=== PATIENT | male | born 1965 | race Caucasian/White ===

== ENCOUNTER 2017-11-11 13:00 | Inpatient (IN) ==
[2017-11-11] MEDS ORDERED: Sod Chloride 0.9% Inj 1,000 ML IV.SIG ONE (13:26)
--- NOTE | 2017-11-11 13:46 | ED ---
HPI General Chief Complaint: Chest Pain Stated Complaint: Abnormal EKG Time Seen by Provider: 11/11/17 13:15 Source: patient, family, RN notes reviewed and old records reviewed Mode of arrival: ambulatory Limitations: no limitations History of Present Illness HPI narrative: 52-year-old male presents to the emergency department via private vehicle for evaluation of syncope, chest pain. Patient states that he completed a 20 mile bike ride and walked into the 1. He states that he then had 3 syncopal episodes. He was from the standing position upon the first syncopal episode. EMS was called EKG was performed which was abnormal. EMS wanted to bring him to the ED at that time, but he declined having his significant other bring him instead. Patient currently rates midsternal chest pain 2/, states it "feels like I have been coughing". He denies any radiation of the pain. He states for the past month or so when he goes outside he will have some chest pain. Before that, he states he would have chest pain when he smoked marijuana. He does currently smoke marijuana. He did use marijuana orally before going on his bike ride. He denies any other illicit drug use. He is a current tobacco smoker. Patient reports history of GERD and is on Protonix. He also has exercise-induced asthma and is on albuterol. He states he has uses albuterol more often lately. Patient denies any headache. No visual changes. No other complaints at this time. Moderate severity. MD complaint: chest pain Complete Quality Measures for STEMI Alert Patients STEMI Alert: No Duration: intermittent Onset: during rest and during exertion Pain location: substernal Severity: moderate Severity scale (1-10): 2 Quality: tightness and aching Pain radiation: none Relieving factors: nothing Exacerbating factors: nothing Context: other (syncope x3, during and after 20 mile bike ride) Treatments prior to arrival chest pain: none Related Data Allergies Allergy/AdvReac Type Severity Reaction Status Date / Time No Known Allergies AdvReac Unknown Uncoded 04/07/17 11:26 Review of Systems ROS: all other systems reviewed are negative [facility] Social History Social History Substance History: Active Abuse Second Hand Smoke Exposure: No Smoking Status: Current every day smoker How Often Do You Have a Drink Containing Alcohol: 2 to 3 times a week Recent Travel in [facility] within the Last 8 Weeks: No Recent Out of Country Travel within the Last 8 Weeks: No Substance Abuse Detail Marijuana: Route Used Substance Abuse: By Mouth and Inhalation Exam Narrative Exam Narrative: GENERAL: Well-nourished, well-developed male patient, afebrile SKIN: Focused skin assessment warm/dry. No lacerations or abrasions. HEAD: Normocephalic. Atraumatic. EYES: No scleral icterus. No injection or drainage. NECK: Supple, trachea midline. No JVD or lymphadenopathy. CARDIOVASCULAR: Regular rate and rhythm without murmurs, gallops, or rubs. Bilateral radial and pedal pulses 2+ RESPIRATORY: Breath sounds equal bilaterally. No accessory muscle use. Lung sounds are clear to auscultation GASTROINTESTINAL: Abdomen soft, non-tender, nondistended. MUSCULOSKELETAL: No cyanosis, or edema. Bilateral upper and lower extremity strength 5/5. Extremities are neurovascularly intact BACK: Nontender without obvious deformity. No CVA tenderness. Course Initial Documented Vital Signs Temperature 97.6 F 11/11/17 13:05 Pulse Rate 63 11/11/17 13:05 Respiratory Rate 16 11/11/17 13:05 Blood Pressure 138/64 11/11/17 13:05 Pulse Oximetry 99 11/11/17 13:05 Last Documented Vital Signs Temperature 97.6 F 11/11/17 13:05 Pulse Rate 59 L 11/11/17 17:40 Respiratory Rate 18 11/11/17 17:40 Blood Pressure 119/59 L 11/11/17 17:40 Pulse Oximetry 100 11/11/17 15:28 Medical Decision Making BRISEIDA Attestation BRISEIDA supervised visit: Yes Attestation: I, Dr. Rudolph, have reviewed the advance practice practitioner's documentation and am in agreement, met with the patient face to face, made the diagnosis, and the medical decision making was done by me. *My assessment and Findings: Patient seen and evaluated with PA, coming in with chest discomfort and syncope, EKG is showing T-wave inversion in the inferior leads. Cardiac enzymes are elevated, concerning for a non-ST elevation MA. Aspirin and heparin was initiated in the ER. CAT scan of the brain did not show any signs of acute processes. IV fluids were initiated in the ER. Case was discussed with Dr. Damon who states he will see the patient. At this point , patient is admitted for medical service for further evaluation. [facility] Narrative Medical decision making narrative: 52-year-old male presents to the emergency department for evaluation of syncope 3, chest pain. EKG shows inverted T waves in lead II, 3, aVF. Inversion is deep in leads III and aVF. EKG by EMS shows ST depression in leads II, 3, aVF, but this has resolved. CBC, CMP, magnesium, CK, troponin, PTT, PT/INR, UA, urine drug screen, d-dimer are ordered and pending. Chest x-ray, CT the brain are ordered and pending. Aspirin will be held until CT the brain shows no hemorrhage. Patient is given normal saline 1 L IV bolus, Zofran 4 mg IV CBC shows slight leukocytosis of 11.1. CMP shows creatinine of 1.33. CK is 11.9. Troponin is 1.25. Magnesium is 2.4. PTT is 22.6. PT is 10.5. INR is 1.0. D-dimer is 0.26. UA and UDS are pending. Chest x-ray is negative. CT of the brain is negative. Patient is given ASA 325 mg PO and Heparin gtt is initiated. Dr. Mercer accepted the admission. Dr. Damon was consulted and is aware of the patient and NSTEMI. Medical Screen Exam Complete: Yes Emergency Medical Condition: Yes Differential Diagnosis Differential Diagnosis: ACS versus PE versus pneumonia versus pneumothorax versus electrolyte abnormality versus dehydration versus intracranial hemorrhage Medical Records Medical records reviewed: Yes I reviewed the patient's medical records. EKG was reviewed from September 27, 2014. He had slight inverted T waves in lead III , but not leads II and aVF. Lab Data Result diagrams: 11/11/17 10:45 11/11/17 13:55 Lab Results 11/11/17 11/11/17 11/11/17 Range/Units 10:45 13:55 13:55 WBC 11.1 H (4.0-11.0) th/mm3 RBC 4.91 (4.50-5.90) mil/mm3 Hgb 15.2 (13.0-17.0) gm/dL Hct 44.8 (39.0-51.0) % MCV 91.2 (80.0-100.0) fL MCH 31.0 (27.0-34.0) pg MCHC 34.0 (32.0-36.0) % RDW 13.1 (11.6-17.2) % Plt Count 211 (150-450) th/mm3 MPV 8.1 (7.0-11.0) fL Neut % (Auto) 76.7 H (16.0-70.0) % Lymph % (Auto) 14.8 (9.0-44.0) % [place] % (Auto) 6.6 (0.0-8.0) % Eos % (Auto) 1.6 (0.0-4.0) % Baso % (Auto) 0.3 (0.0-2.0) % Neut # (Auto) 8.5 H (1.8-7.7) th/mm3 Lymph # (Auto) 1.6 (1.0-4.8) th/mm3 [place] # (Auto) 0.7 (0.0-0.9) th/mm3 Eos # (Auto) 0.2 (0.0-0.4) th/mm3 Baso # (Auto) 0.0 (0.0-0.2) th/mm3 WBC Differential . Differential Comment Auto diff final PT 10.5 (9.8-11.6) sec INR 1.0 Ratio APTT 22.6 L (24.3-30.1) sec D-Dimer Quant (PE/DVT) (0.00-0.50) mg/L FEU Sodium 142 (136-145) meq/L Potassium 4.4 (3.5-5.1) meq/L Chloride 107 (98-107) meq/L Carbon Dioxide 25.9 (21.0-32.0) meq/L Anion Gap 9 (5-15) meq/L BUN 12 (7-18) mg/dL Creatinine 1.33 H (0.60-1.30) mg/dL Estimated GFR 57 L (>89) mL/min Random Glucose 82 (74-106) mg/dL Calcium 9.1 (8.5-10.1) mg/dL Magnesium 2.4 (1.5-2.5) mg/dL Total Bilirubin 0.4 (0.2-1.0) mg/dL AST 33 (15-37) U/L ALT 28 (12-78) U/L Alkaline Phosphatase 71 (45-117) U/L Total Creatine Kinase 181 (39-308) U/L CK-MB (CK-2) 11.9 H (0.5-3.6) ng/mL Troponin I 1.25 H* (0.02-0.05) ng/mL Total Protein 7.9 (6.4-8.2) g/dL Albumin 4.2 (3.4-5.0) g/dL Urine Color (Yellw/Straw) Urine Clarity (Clear) Urine pH (5.0-8.5) Ur Specific [place] (1.002-1.035) Urine Protein (Neg-Trace) mg/dL Urine Glucose (UA) (Negative) mg/dL Urine Ketones (Negative) mg/dL Urine Occult Blood (Negative) Urine Nitrate (Negative) Urine Bilirubin (Negative) Urine Urobilinogen (Less than 2) mg/dL Ur Leukocyte Esterase (Negative) Urine WBC (0-5) /hpf Hyaline Casts (0-3) /lpf Urine Mucus (Occasional) /lpf Micro UA Comment Ur Microscopic Review Urine Culture Comments 11/11/17 11/11/17 Range/Units 13:55 17:17 WBC (4.0-11.0) th/mm3 RBC (4.50-5.90) mil/mm3 Hgb (13.0-17.0) gm/dL Hct (39.0-51.0) % MCV (80.0-100.0) fL MCH (27.0-34.0) pg MCHC (32.0-36.0) % RDW (11.6-17.2) % Plt Count (150-450) th/mm3 MPV (7.0-11.0) fL Neut % (Auto) (16.0-70.0) % Lymph % (Auto) (9.0-44.0) % [place] % (Auto) (0.0-8.0) % Eos % (Auto) (0.0-4.0) % Baso % (Auto) (0.0-2.0) % Neut # (Auto) (1.8-7.7) th/mm3 Lymph # (Auto) (1.0-4.8) th/mm3 [place] # (Auto) (0.0-0.9) th/mm3 Eos # (Auto) (0.0-0.4) th/mm3 Baso # (Auto) (0.0-0.2) th/mm3 WBC Differential Differential Comment PT (9.8-11.6) sec INR Ratio APTT (24.3-30.1) sec D-Dimer Quant (PE/DVT) 0.26 (0.00-0.50) mg/L FEU Sodium (136-145) meq/L Potassium (3.5-5.1) meq/L Chloride (98-107) meq/L Carbon Dioxide (21.0-32.0) meq/L Anion Gap (5-15) meq/L BUN (7-18) mg/dL Creatinine (0.60-1.30) mg/dL Estimated GFR (>89) mL/min Random Glucose (74-106) mg/dL Calcium (8.5-10.1) mg/dL Magnesium (1.5-2.5) mg/dL Total Bilirubin (0.2-1.0) mg/dL AST (15-37) U/L ALT (12-78) U/L Alkaline Phosphatase (45-117) U/L Total Creatine Kinase (39-308) U/L CK-MB (CK-2) (0.5-3.6) ng/mL Troponin I (0.02-0.05) ng/mL Total Protein (6.4-8.2) g/dL Albumin (3.4-5.0) g/dL Urine Color Yellow (Yellw/Straw) Urine Clarity Clear (Clear) Urine pH 5.0 (5.0-8.5) Ur Specific [place] 1.011 (1.002-1.035) Urine Protein Negative (Neg-Trace) mg/dL Urine Glucose (UA) Negative (Negative) mg/dL Urine Ketones Negative (Negative) mg/dL Urine Occult Blood Negative (Negative) Urine Nitrate Negative (Negative) Urine Bilirubin Negative (Negative) Urine Urobilinogen Less than 2 (Less than 2) mg/dL Ur Leukocyte Esterase Negative (Negative) Urine WBC Less than 1 (0-5) /hpf Hyaline Casts 11 (0-3) /lpf Urine Mucus Few H (Occasional) /lpf Micro UA Comment Culture not ind Ur Microscopic Review Not Reportable Urine Culture Comments Culture not ind Imaging Data Radiologist's impression: Head CT 11/11/17 13:26 CONCLUSION: Negative CT Head non contrast. . Chest X-Ray 11/11/17 15:10 CONCLUSION: Negative examination. Discharge Plan Discharge Disposition Patient Disposition: 30 Still Patient Discharge Details Diagnosis: NSTEMI (non-ST elevated myocardial infarction) Physicians Team ED Provider: Delfina Rudolph ED Midlevel Provider: Ramona Fermin Primary Care Provider: Sin Marie Attending Provider: Aj Mercer Other Providers: Danny Damon ED Status: Admitted Patient
[2017-11-11 14:21] LABS: Baso % (Auto) 0.3 % (0.0-2.0); Eos # (Auto) 0.2 th/mm3 (0.0-0.4); Eos % (Auto) 1.6 % (0.0-4.0); Hematocrit 44.8 % (39.0-51.0); Hemoglobin 15.2 gm/dL (13.0-17.0); Lymph # (Auto) 1.6 th/mm3 (1.0-4.8); Lymph % (Auto) 14.8 % (9.0-44.0); Mean Corpuscular Volume 91.2 fL (80.0-100.0); Mean Platelet Volume 8.1 fL (7.0-11.0); Mono # (Auto) 0.7 th/mm3 (0.0-0.9); Mono % (Auto) 6.6 % (0.0-8.0); Neut # (Auto) 8.5 th/mm3 (1.8-7.7); Neut % (Auto) 76.7 % (16.0-70.0); Platelet Count 211 th/mm3 (150-450); Red Blood Count 4.91 mil/mm3 (4.50-5.90); Red Cell Distribution Width 13.1 % (11.6-17.2); White Blood Count 11.1 th/mm3 (4.0-11.0)
[2017-11-11 14:33] LABS: Activated Partial Thrombo Time 22.6 sec (24.3-30.1); Alanine Aminotransferase 28 U/L (12-78); Albumin 4.2 g/dL (3.4-5.0); Anion Gap 9 meq/L (5-15); Aspartate Aminotransferase 33 U/L (15-37); Blood Urea Nitrogen 12 mg/dL (7-18); Calcium 9.1 mg/dL (8.5-10.1); Carbon Dioxide 25.9 meq/L (21.0-32.0); Chloride 107 meq/L (98-107); Glomerular Filtration Rate 57 mL/min (>89); Glucose,Random 82 mg/dL (74-106); Magnesium 2.4 mg/dL (1.5-2.5); Potassium 4.4 meq/L (3.5-5.1); Prothrombin Time 10.5 sec (9.8-11.6); Sodium 142 meq/L (136-145)
[2017-11-11 14:37] LABS: Alkaline Phosphatase 71 U/L (45-117); Creatine Kinase 181 U/L (39-308); Total Protein 7.9 g/dL (6.4-8.2)
[2017-11-11 14:52] LABS: Troponin I 1.25 ng/mL (0.02-0.05)
[2017-11-11 15:03] LABS: Creatine Kinase MB 11.9 ng/mL (0.5-3.6)
[2017-11-11] MEDS ORDERED: Heparin Drip 25,000 UNIT/250 ML BAG IV.CONT PRN (15:08)
[2017-11-11] MEDS ORDERED: Heparin 10,000 UNITS/10 ML Vial (for IV use) IV.PUSH STA (15:08)
[2017-11-11] MEDS ORDERED: Aspirin 325 MG Tablet PO ONE (15:08)
--- NOTE | 2017-11-11 15:08 | CT ---
EXAM DATE: 11/11/2017 2:54 PM EDT AGE/SEX: 52 years / Male INDICATIONS: Syncopal episode. CLINICAL DATA: This is the patient's initial encounter. Patient reports that signs and symptoms have been present for 1 day and indicates a pain score of 0/10. MEDICAL/SURGICAL HISTORY: None. None. RADIATION DOSE: 56.35 CTDI (mGy) COMPARISON: [facility], CT BRAIN W/O CONTRAST, 07/25/2012. . TECHNIQUE: CT of the head without contrast. Using automated exposure control and adjustment of the mA and/or kV according to patient size, radiation dose was kept as low as reasonably achievable to ob tain optimal diagnostic quality images. DICOM format image data is available electronically for revi ew and comparison. FINDINGS: Cerebrum: The ventricles are normal for age. No evidence of midline shift, mass lesion, hemorrhage or acute infarction. No extraaxial fluid collections are seen. Posterior Fossa: The cerebellum and brainstem are intact. The 4th ventricle is midline. The cerebe llopontine angle is unremarkable. Extracranial: The visualized portion of the orbits is intact. Skull: The calvaria is intact. No evidence of skull fracture. CONCLUSION: Negative CT Head non contrast. . Electronically signed by: Samuel Mason MD 11/11/2017 3:07 PM EDT
--- NOTE | 2017-11-11 15:43 | XR ---
EXAM DATE: 11/11/2017 3:39 PM EDT AGE/SEX: 52 years / Male INDICATIONS: Chest pain. Shortness of breath. CLINICAL DATA: This is the patient's initial encounter. Patient reports that signs and symptoms have been present for 1 day and indicates a pain score of 4/10. MEDICAL/SURGICAL HISTORY: None. None. COMPARISON: [facility], CHEST SINGLE AP, 07/25/2012. . FINDINGS: A single AP view of the chest demonstrates the lungs to be symmetrically aerated without evidence of mass, infiltrate or effusion. The cardiomediastinal contours are unremarkable. Osseous structures a re intact. CONCLUSION: Negative examination. Electronically signed by: Samuel Mason MD 11/11/2017 3:42 PM EDT
[2017-11-11] MEDS ORDERED: Morphine Inj 4 MG/ML Vial IV.PUSH PRN (16:30)
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
[2017-11-11] MEDS ORDERED: Tirofiban Inj 12,500 MCG/250 ML PLAST..BAG IV.CONT SCH (18:00)
[2017-11-11 18:16] LABS: Bilirubin,Urine Negative (Negative); Clarity,Urine Clear (Clear); Color,Urine Yellow (Yellw/Straw); Glucose,Urine (UA) Negative (Negative); Hyaline Casts,Urine 11 /lpf (0-3); Leukocyte Esterase,Urine Negative (Negative); Mucus,Urine Few /lpf (Occasional); Nitrite,Urine Negative (Negative); Specific Gravity,Urine 1.011 (1.002-1.035)
[2017-11-11 18:33] LABS: Amphetamine Screen,Urine Neg (Neg); Barbiturate Screen,Urine Neg (Neg); Cannabinoid Screen,Urine Pos (Neg); Cocaine Screen,Urine Neg (Neg)
[2017-11-11 18:34] LABS: Opiate Screen,Urine Neg (Neg)
[2017-11-11 19:38] LABS: Troponin I 4.16 ng/mL (0.02-0.05)
[2017-11-11] MEDS ORDERED: Morphine Sulfate Inj 8 MG/ML Vial IV.PUSH ONE (20:00)
--- NOTE | 2017-11-11 20:15 | MB ---
cc: Danny Damon MD DATE: 11/11/2017 REASON FOR CONSULTATION: [id number] myocardial infarction. HISTORY OF PRESENT ILLNESS: The patient is a 52-year-old white male with a history of asthma, gastroesophageal reflux disease, who was brought to the hospital complaining of chest discomfort as well as 3 syncopal episodes. The patient, who exercises regularly, had just finished a bike ride when he felt generalized malaise, chest discomfort, increased shortness of breath. He he went to a [employer] to try to get a drink. While leaning on the bait cooler, he began to feel severely lightheaded. He attempted to jump onto the cooler to sit down, but apparently lost consciousness for a few seconds, causing him to fall to the ground. When he tried to get up, he had another syncopal episode, probably lasting another couple of seconds. He was able to make it to the front of the store where he had his third syncopal episode, again lasting no more than a few seconds. He continued to have the upper midline chest discomfort, which he experienced predominantly during his bike ride as well. At this time, he continues to have slight chest discomfort without associated shortness of breath, nausea or diaphoresis. The patient states in retrospect, he has noticed similar chest discomfort for years, often experiencing the chest discomfort 45-60 minutes into a bike ride but has been able to exercise through the chest discomfort, which eventually resolves. He denies any other episodes of syncope in the past. He also denies palpitations, pedal edema, paroxysmal nocturnal dyspnea or orthopnea. Chronically, he has intermittent wheezing, often when supine. He has noticed increased shortness of breath in the last 2 days necessitating increased usage of albuterol. PAST MEDICAL HISTORY: 1. Asthma. 2. Gastroesophageal reflux disease. PAST SURGICAL HISTORY: 1. Right index and long finger surgery for lacerations, 10/25/2002. 2. Pars plana vitrectomy, membrane peel, right eye. CARDIAC MEDICATIONS AT HOME: None. CARDIAC MEDICATIONS HERE IN THE HOSPITAL: 1. Heparin drip. 2. Aspirin 81 mg p.o. daily. ALLERGIES: NO KNOWN DRUG ALLERGIES. FAMILY HISTORY: There is no family history of cardiac disease. SOCIAL HISTORY: The patient quit smoking in 2011. At that time, he was smoking about a pack every other day. He denies alcohol abuse. The patient does admit to smoking "a lot" of marijuana. REVIEW OF SYSTEMS: As in history of present illness, otherwise negative or noncontributory. He also denies headache, melena, bright red blood per rectum, fevers, cough. The patient notes a long history of dyspepsia for which he has been treated in the past with pantoprazole. PHYSICAL EXAMINATION: VITAL SIGNS: His blood pressure 119/59 with a pulse of 59, respirations 18. GENERAL: He is a well-developed, well-nourished white male, in no acute distress. NECK: Jugular venous pressure is normal. Carotid pulses are 2+ bilaterally and without bruits. CHEST: Clear lungs lopez. CARDIAC: He has a regular rhythm and rate without S3, S4, or murmur. ABDOMEN: He has a soft, nontender abdomen. Bowel sounds are present. There is no definite hepatosplenomegaly. EXTREMITIES: Reveals no clubbing, cyanosis or edema. Peripheral pulses are normal throughout. DIAGNOSTIC DATA: EKG shows sinus rhythm, inferior T-wave inversion, consider ischemia. Chest x-ray shows no acute disease. LABORATORY DATA: Include BUN 12, creatinine 1.33. CK 181, CK-MB 11.9, troponin 1.25. AST 33, ALT 28. INR 1.0. Potassium 4.4. WBC 11.1, hemoglobin 15.2, platelets 211. IMPRESSION: Acute/subacute non-ST elevation myocardial infarction in this 52-year-old white male with a history of asthma, gastroesophageal reflux disease. I suspect his myocardial infarction began yesterday. He had fairly prolonged chest discomfort throughout most of the night last night. EKG does show inferior T-wave inversion. There is no evidence for ST elevation. So far, there has been no evidence for significant arrhythmias, although he may very well have had ventricular tachyarrhythmias causing his syncopal episodes at the [employer] earlier today. Alternatively, he may have been dehydrated. At this time, he does continue to have slight ongoing chest discomfort, although much improved compared to earlier today. RECOMMENDATIONS: 1. Continue heparin drip and aspirin. 2. Add Aggrastat and nitroglycerin drips. 3. If his slight residual discomfort is not resolved in the next hour or two recommend cardiac catheterization this evening; otherwise we will plan on cardiac catheterization Tuesday. 4. We will hold off on beta william and SEPIDEH inhibitor therapy for now given his mild renal insufficiency and relatively low blood pressures. Danny Damon MD GHBelinda/agata , 06:05 PM , 06:15 PM DARRON
[2017-11-11] MEDS: Sod Chloride 0.9% Inj 1,000 ML IV.CONT SCH (20:55)
[2017-11-11] MEDS: Nitroglycerin Drip Premix 50 MG/250 ML BOTTLE IV.CONT PRN (20:57)
[2017-11-11] MEDS: TIROFIBAN BOLUS IV.PUSH ONE (21:22)
[2017-11-11 23:31] LABS: Hematocrit 37.5 % (39.0-51.0); Hemoglobin 13.1 gm/dL (13.0-17.0); Mean Corpuscular HGB Conc 34.9 % (32.0-36.0); Mean Corpuscular Hemoglobin 31.5 pg (27.0-34.0); Mean Corpuscular Volume 90.3 fL (80.0-100.0); Mean Platelet Volume 7.5 fL (7.0-11.0); Platelet Count 191 th/mm3 (150-450); Red Blood Count 4.15 mil/mm3 (4.50-5.90); Red Cell Distribution Width 12.7 % (11.6-17.2); White Blood Count 8.7 th/mm3 (4.0-11.0)
[2017-11-11 23:53] LABS: Activated Partial Thrombo Time 28.5 sec (24.3-30.1); INR 1.1 Ratio; Prothrombin Time 10.7 sec (9.8-11.6)
[2017-11-12 02:02] LABS: Baso # (Auto) 0.1 th/mm3 (0.0-0.2); Baso % (Auto) 0.6 % (0.0-2.0); Eos # (Auto) 0.3 th/mm3 (0.0-0.4); Eos % (Auto) 3.4 % (0.0-4.0); Hematocrit 36.9 % (39.0-51.0); Hemoglobin 12.7 gm/dL (13.0-17.0); Lymph # (Auto) 3.6 th/mm3 (1.0-4.8); Mean Corpuscular HGB Conc 34.4 % (32.0-36.0); Mean Corpuscular Hemoglobin 31.4 pg (27.0-34.0); Mean Corpuscular Volume 91.3 fL (80.0-100.0); Mean Platelet Volume 7.9 fL (7.0-11.0); Mono # (Auto) 0.8 th/mm3 (0.0-0.9); Mono % (Auto) 9.2 % (0.0-8.0); Neut # (Auto) 3.8 th/mm3 (1.8-7.7); Neut % (Auto) 44.8 % (16.0-70.0); Platelet Count 187 th/mm3 (150-450); Red Blood Count 4.04 mil/mm3 (4.50-5.90); Red Cell Distribution Width 13.2 % (11.6-17.2); White Blood Count 8.6 th/mm3 (4.0-11.0)
[2017-11-12 02:22] LABS: Troponin I 3.98 ng/mL (0.02-0.05)
[2017-11-12 02:33] LABS: Activated Partial Thrombo Time 23.1 sec (24.3-30.1); INR 1.1 Ratio; Prothrombin Time 10.7 sec (9.8-11.6)
[2017-11-12] MEDS: Sod Chloride 0.9% Inj 1,000 ML IV.CONT SCH ×4 (03:10→23:31)
[2017-11-12 03:59] LABS: Baso # (Auto) 0.1 th/mm3 (0.0-0.2); Baso % (Auto) 0.8 % (0.0-2.0); Eos # (Auto) 0.3 th/mm3 (0.0-0.4); Hematocrit 36.3 % (39.0-51.0); Hemoglobin 12.6 gm/dL (13.0-17.0); Lymph # (Auto) 3.2 th/mm3 (1.0-4.8); Mean Corpuscular HGB Conc 34.7 % (32.0-36.0); Mean Corpuscular Hemoglobin 31.6 pg (27.0-34.0); Mean Corpuscular Volume 91.1 fL (80.0-100.0); Mono # (Auto) 0.6 th/mm3 (0.0-0.9); Mono % (Auto) 8.6 % (0.0-8.0); Neut # (Auto) 3.4 th/mm3 (1.8-7.7); Neut % (Auto) 44.6 % (16.0-70.0); Platelet Count 187 th/mm3 (150-450); Red Blood Count 3.98 mil/mm3 (4.50-5.90); Red Cell Distribution Width 12.9 % (11.6-17.2); White Blood Count 7.5 th/mm3 (4.0-11.0)
[2017-11-12 04:29] LABS: Activated Partial Thrombo Time 23.4 sec (24.3-30.1); Prothrombin Time 10.5 sec (9.8-11.6)
[2017-11-12] MEDS ORDERED: Heparin 10,000 UNITS/10 ML Vial (for IV use) IV.PUSH STA (06:09)
[2017-11-12] MEDS: Heparin Drip 25,000 UNIT/250 ML BAG IV.CONT PRN ×2 (06:29→22:18)
[2017-11-12 06:31] LABS: Baso # (Auto) 0.1 th/mm3 (0.0-0.2); Baso % (Auto) 0.8 % (0.0-2.0); Eos # (Auto) 0.3 th/mm3 (0.0-0.4); Eos % (Auto) 4.3 % (0.0-4.0); Hematocrit 35.9 % (39.0-51.0); Hemoglobin 12.6 gm/dL (13.0-17.0); Lymph % (Auto) 39.7 % (9.0-44.0); Mean Corpuscular Hemoglobin 31.4 pg (27.0-34.0); Mean Corpuscular Volume 89.6 fL (80.0-100.0); Mean Platelet Volume 8.3 fL (7.0-11.0); Mono # (Auto) 0.7 th/mm3 (0.0-0.9); Mono % (Auto) 8.5 % (0.0-8.0); Neut # (Auto) 3.6 th/mm3 (1.8-7.7); Neut % (Auto) 46.7 % (16.0-70.0); Platelet Count 177 th/mm3 (150-450); White Blood Count 7.7 th/mm3 (4.0-11.0)
[2017-11-12 06:59] LABS: Activated Partial Thrombo Time 24.6 sec (24.3-30.1); INR 1.1 Ratio; Prothrombin Time 10.9 sec (9.8-11.6)
[2017-11-12] MEDS: TIROFIBAN BOLUS IV.PUSH ONE (08:18)
--- NOTE | 2017-11-12 10:20 | US ---
EXAM DATE: 11/12/2017 10:13 AM EDT AGE/SEX: 52 years / Male INDICATIONS: Syncope. CLINICAL DATA: This is the patient's initial encounter. Patient reports that signs and symptoms have been present for 1 day and indicates a pain score of 0/10. MEDICAL/SURGICAL HISTORY: . Gastroesophageal reflux disease. Smoker. None. COMPARISON: No prior exams available for comparison. VELOCITY PARAMETERS: ICA/CCA Ratio: Right 0.9 , Left 0.8 ICA: Right 101 cm/sec, Left 114 cm/sec CCA: Right 107 cm/sec, Left 137 cm/sec ECA: Right 117 cm/sec, Left 108 cm/sec Vertebral: Right 40 cm/sec antegrade, Left 49 cm/sec antegrade FINDINGS: Right Carotid: No significant plaque is visualized.The waveforms are within normal limits. Left Carotid: No significant plaque is visualized. The waveforms are within normal limits. Other: None. CONCLUSION: No hemodynamically significant stenosis in either carotid artery. Electronically signed by: Nixon Mcmullen MD 11/12/2017 10:19 AM EDT
--- NOTE | 2017-11-12 11:38 | P.PN ---
Subjective Interval history: Follow-up non-ST elevation LA November 12, 2017-patient seen and examined, continued to complain of substernal chest pain. Poison control was called overnight secondary to possible Aggrastat toxicity, however platelet count remains stable Physical Exam Vital signs: Vital Signs 11/11/17 13:05 11/11/17 13:29 11/11/17 13:32 Temperature 97.6 F Pulse Rate 63 63 70 Respiratory Rate 16 18 18 Blood Pressure 138/64 112/58 L 117/58 L Pulse Oximetry 99 98 97 11/11/17 15:01 11/11/17 15:28 11/11/17 17:40 Temperature Pulse Rate 70 59 L Respiratory Rate 18 18 Blood Pressure 117/76 119/59 L Pulse Oximetry 98 100 11/11/17 19:00 11/11/17 19:15 11/11/17 20:00 Temperature 98.5 F 98.2 F Pulse Rate 55 L 51 L 56 L Respiratory Rate 18 16 Blood Pressure 112/54 L 128/67 Pulse Oximetry 98 100 11/11/17 21:00 11/11/17 22:00 11/11/17 23:00 Temperature Pulse Rate 54 L 58 L 80 Respiratory Rate Blood Pressure Pulse Oximetry 11/12/17 00:00 11/12/17 01:00 11/12/17 02:00 Temperature 98.4 F Pulse Rate 56 L 58 L 62 Respiratory Rate 18 Blood Pressure 118/65 Pulse Oximetry 99 11/12/17 03:00 11/12/17 04:00 11/12/17 05:00 Temperature 98.0 F Pulse Rate 51 L 52 L 56 L Respiratory Rate 16 Blood Pressure 120/59 L Pulse Oximetry 95 11/12/17 06:00 Temperature Pulse Rate 51 L Respiratory Rate Blood Pressure Pulse Oximetry Intake & Output 11/11/17 11/12/17 11/12/17 18:59 06:59 18:59 Intake Total 2910 / 2910 Output Total 1100 / 1100 Balance 1810 / 1810 Weight 95.254 kg 96.3 kg Intake: IV 2190 / 2190 Heparin/D5W 25,000 U/250 mL 25, 40 / 40 000 unit In 250 ml @ Per Protocol IV.CONT TITRATE PRN Rx #:[id number] NS Inj 1,000 ML @ 100 mls/hr IV 900 / 900 .CONT .Q10H BLAYNE Rx#:[id number] NS Inj 1,000 ML @ Wide Open IV. 1000 / 1000 SIG BOLUS ONE Rx#:[id number] Oral 720 / 720 Output: Urine 1100 / 1100 Narrative: GENERAL: NAD SKIN: Warm and dry. HEAD: Normocephalic. EYES: No scleral icterus. No injection or drainage. NECK: Supple, trachea midline. No JVD or lymphadenopathy. CARDIOVASCULAR: Regular rate and rhythm without murmurs, gallops, or rubs. RESPIRATORY: Breath sounds equal bilaterally. No accessory muscle use. GASTROINTESTINAL: Abdomen soft, non-tender, nondistended. MUSCULOSKELETAL: No cyanosis, or edema. BACK: Nontender without obvious deformity. No CVA tenderness. Results - Labs CBC & Chem 7: 11/12/17 06:00 11/11/17 13:55 Laboratory Results - last 24 hr 11/11/17 11/11/17 11/11/17 10:45 13:55 13:55 WBC 11.1 H RBC 4.91 Hgb 15.2 Hct 44.8 MCV 91.2 MCH 31.0 MCHC 34.0 RDW 13.1 Plt Count 211 MPV 8.1 Neut % (Auto) 76.7 H Lymph % (Auto) 14.8 [place] % (Auto) 6.6 Eos % (Auto) 1.6 Baso % (Auto) 0.3 Neut # (Auto) 8.5 H Lymph # (Auto) 1.6 [place] # (Auto) 0.7 Eos # (Auto) 0.2 Baso # (Auto) 0.0 WBC Differential . Differential Comment Auto diff final PT 10.5 INR 1.0 APTT 22.6 L D-Dimer Quant (PE/DVT) Sodium 142 Potassium 4.4 Chloride 107 Carbon Dioxide 25.9 Anion Gap 9 BUN 12 Creatinine 1.33 H Estimated GFR 57 L Random Glucose 82 Calcium 9.1 Magnesium 2.4 Total Bilirubin 0.4 AST 33 ALT 28 Alkaline Phosphatase 71 Total Creatine Kinase 181 CK-MB (CK-2) 11.9 H Troponin I 1.25 H* Total Protein 7.9 Albumin 4.2 Urine Color Urine Clarity Urine pH Ur Specific Catherine Urine Protein Urine Glucose (UA) Urine Ketones Urine Occult Blood Urine Nitrate Urine Bilirubin Urine Urobilinogen Ur Leukocyte Esterase Urine WBC Hyaline Casts Urine Mucus Micro UA Comment Ur Microscopic Review Urine Culture Comments Urine Opiates Screen Ur Barbiturates Screen Ur Amphetamines Screen U Benzodiazepines Scrn Urine Cocaine Screen U Cannabinoids Screen 11/11/17 11/11/17 11/11/17 13:55 17:17 17:17 WBC RBC Hgb Hct MCV MCH MCHC RDW Plt Count MPV Neut % (Auto) Lymph % (Auto) [place] % (Auto) Eos % (Auto) Baso % (Auto) Neut # (Auto) Lymph # (Auto) [place] # (Auto) Eos # (Auto) Baso # (Auto) WBC Differential Differential Comment PT INR APTT D-Dimer Quant (PE/DVT) 0.26 Sodium Potassium Chloride Carbon Dioxide Anion Gap BUN Creatinine Estimated GFR Random Glucose Calcium Magnesium Total Bilirubin AST ALT Alkaline Phosphatase Total Creatine Kinase CK-MB (CK-2) Troponin I Total Protein Albumin Urine Color Yellow Urine Clarity Clear Urine pH 5.0 Ur Specific Catherine 1.011 Urine Protein Negative Urine Glucose (UA) Negative Urine Ketones Negative Urine Occult Blood Negative Urine Nitrate Negative Urine Bilirubin Negative Urine Urobilinogen Less than 2 Ur Leukocyte Esterase Negative Urine WBC Less than 1 Hyaline Casts 11 Urine Mucus Few H Micro UA Comment Culture not ind Ur Microscopic Review Not Reportable Urine Culture Comments Culture not ind Urine Opiates Screen Neg Ur Barbiturates Screen Neg Ur Amphetamines Screen Neg U Benzodiazepines Scrn Neg Urine Cocaine Screen Neg U Cannabinoids Screen Pos H 11/11/17 11/11/17 11/11/17 18:55 21:21 23:15 WBC RBC Hgb Hct MCV MCH MCHC RDW Plt Count MPV Neut % (Auto) Lymph % (Auto) [place] % (Auto) Eos % (Auto) Baso % (Auto) Neut # (Auto) Lymph # (Auto) [place] # (Auto) Eos # (Auto) Baso # (Auto) WBC Differential Differential Comment PT 10.7 INR 1.1 APTT 31.9 H D 28.5 D-Dimer Quant (PE/DVT) Sodium Potassium Chloride Carbon Dioxide Anion Gap BUN Creatinine Estimated GFR Random Glucose Calcium Magnesium Total Bilirubin AST ALT Alkaline Phosphatase Total Creatine Kinase 226 CK-MB (CK-2) Troponin I 4.16 H* Total Protein Albumin Urine Color Urine Clarity Urine pH Ur Specific Catherine Urine Protein Urine Glucose (UA) Urine Ketones Urine Occult Blood Urine Nitrate Urine Bilirubin Urine Urobilinogen Ur Leukocyte Esterase Urine WBC Hyaline Casts Urine Mucus Micro UA Comment Ur Microscopic Review Urine Culture Comments Urine Opiates Screen Ur Barbiturates Screen Ur Amphetamines Screen U Benzodiazepines Scrn Urine Cocaine Screen U Cannabinoids Screen 11/11/17 11/12/17 11/12/17 23:15 01:35 01:35 WBC 8.7 8.6 RBC 4.15 L 4.04 L Hgb 13.1 D 12.7 L Hct 37.5 L 36.9 L MCV 90.3 91.3 MCH 31.5 31.4 MCHC 34.9 34.4 RDW 12.7 13.2 Plt Count 191 187 MPV 7.5 7.9 Neut % (Auto) 44.8 Lymph % (Auto) 42.0 [place] % (Auto) 9.2 H Eos % (Auto) 3.4 Baso % (Auto) 0.6 Neut # (Auto) 3.8 Lymph # (Auto) 3.6 [place] # (Auto) 0.8 Eos # (Auto) 0.3 Baso # (Auto) 0.1 WBC Differential . Differential Comment Auto diff final PT INR APTT D-Dimer Quant (PE/DVT) Sodium Potassium Chloride Carbon Dioxide Anion Gap BUN Creatinine Estimated GFR Random Glucose Calcium Magnesium Total Bilirubin AST ALT Alkaline Phosphatase Total Creatine Kinase 209 CK-MB (CK-2) Troponin I 3.98 H* Total Protein Albumin Urine Color Urine Clarity Urine pH Ur Specific Catherine Urine Protein Urine Glucose (UA) Urine Ketones Urine Occult Blood Urine Nitrate Urine Bilirubin Urine Urobilinogen Ur Leukocyte Esterase Urine WBC Hyaline Casts Urine Mucus Micro UA Comment Ur Microscopic Review Urine Culture Comments Urine Opiates Screen Ur Barbiturates Screen Ur Amphetamines Screen U Benzodiazepines Scrn Urine Cocaine Screen U Cannabinoids Screen 11/12/17 11/12/17 11/12/17 01:35 03:35 03:35 WBC 7.5 RBC 3.98 L Hgb 12.6 L Hct 36.3 L MCV 91.1 MCH 31.6 MCHC 34.7 RDW 12.9 Plt Count 187 MPV 8.0 Neut % (Auto) 44.6 Lymph % (Auto) 42.0 [place] % (Auto) 8.6 H Eos % (Auto) 4.0 Baso % (Auto) 0.8 Neut # (Auto) 3.4 Lymph # (Auto) 3.2 [place] # (Auto) 0.6 Eos # (Auto) 0.3 Baso # (Auto) 0.1 WBC Differential . Differential Comment Auto diff final PT 10.7 10.5 INR 1.1 1.0 APTT 23.1 L 23.4 L D-Dimer Quant (PE/DVT) Sodium Potassium Chloride Carbon Dioxide Anion Gap BUN Creatinine Estimated GFR Random Glucose Calcium Magnesium Total Bilirubin AST ALT Alkaline Phosphatase Total Creatine Kinase CK-MB (CK-2) Troponin I Total Protein Albumin Urine Color Urine Clarity Urine pH Ur Specific Catherine Urine Protein Urine Glucose (UA) Urine Ketones Urine Occult Blood Urine Nitrate Urine Bilirubin Urine Urobilinogen Ur Leukocyte Esterase Urine WBC Hyaline Casts Urine Mucus Micro UA Comment Ur Microscopic Review Urine Culture Comments Urine Opiates Screen Ur Barbiturates Screen Ur Amphetamines Screen U Benzodiazepines Scrn Urine Cocaine Screen U Cannabinoids Screen 11/12/17 11/12/17 06:00 06:00 WBC 7.7 RBC 4.00 L Hgb 12.6 L Hct 35.9 L MCV 89.6 MCH 31.4 MCHC 35.0 RDW 13.0 Plt Count 177 MPV 8.3 Neut % (Auto) 46.7 Lymph % (Auto) 39.7 [place] % (Auto) 8.5 H Eos % (Auto) 4.3 H Baso % (Auto) 0.8 Neut # (Auto) 3.6 Lymph # (Auto) 3.0 [place] # (Auto) 0.7 Eos # (Auto) 0.3 Baso # (Auto) 0.1 WBC Differential . Differential Comment Auto diff final PT 10.9 INR 1.1 APTT 24.6 D-Dimer Quant (PE/DVT) Sodium Potassium Chloride Carbon Dioxide Anion Gap BUN Creatinine Estimated GFR Random Glucose Calcium Magnesium Total Bilirubin AST ALT Alkaline Phosphatase Total Creatine Kinase CK-MB (CK-2) Troponin I Total Protein Albumin Urine Color Urine Clarity Urine pH Ur Specific Catherine Urine Protein Urine Glucose (UA) Urine Ketones Urine Occult Blood Urine Nitrate Urine Bilirubin Urine Urobilinogen Ur Leukocyte Esterase Urine WBC Hyaline Casts Urine Mucus Micro UA Comment Ur Microscopic Review Urine Culture Comments Urine Opiates Screen Ur Barbiturates Screen Ur Amphetamines Screen U Benzodiazepines Scrn Urine Cocaine Screen U Cannabinoids Screen - Imaging Impressions Head CT 11/11/17 13:26 CONCLUSION: Negative CT Head non contrast. . Chest X-Ray 11/11/17 15:10 CONCLUSION: Negative examination. Carotid Doppler Study 11/12/17 00:00 CONCLUSION: No hemodynamically significant stenosis in either carotid artery. Assessment and Plan - Assessment (1) Chest pain Code(s): R07.9 - Chest pain, unspecified Status: Acute (2) NSTEMI (non-ST elevated myocardial infarction) Code(s): I21.4 - Non-ST elevation (NSTEMI) myocardial infarction Status: Acute (3) Elevated troponin I level Code(s): R74.8 - Abnormal levels of other serum enzymes Status: Acute (4) GERD (gastroesophageal reflux disease) Code(s): K21.9 - Gastro-esophageal reflux disease without esophagitis Status: Acute (5) Nicotine dependence Code(s): F17.200 - Nicotine dependence, unspecified, uncomplicated Status: Acute - Plan 52-year-old man with Non-ST elevation LA Currently on heparin and nitro drips SEPIDEH inhibitor and beta-william not initiated per cardiology Continue aspirin 2D echo pending. Bilateral carotid ultrasound stable Plan for left heart catheterization on Tuesday, November 14, 2017 Continue to monitor for toxicity for Aggrastat Appreciate input from cardiology Syncope Echocardiogram pending Bilateral carotid ultrasound without any evidence of stenosis Follow on telemetry Gastroesophageal reflux disease Not likely contributory at this point Resume Protonix 40 mg daily DVT prophylaxis Heparin
--- NOTE | 2017-11-12 11:56 | P.PNCA ---
Subjective Interval history: Mild right upper chest discomfort this morning. No substernal or left sided CP. Mild dyspnea at rest. No PND, dizziness, palpitations. Generalized weakness. Slept poorly. Physical Exam Vital signs: Vital Signs 11/11/17 13:05 11/11/17 13:29 11/11/17 13:32 Temperature 97.6 F Pulse Rate 63 63 70 Respiratory Rate 16 18 18 Blood Pressure 138/64 112/58 L 117/58 L Pulse Oximetry 99 98 97 11/11/17 15:01 11/11/17 15:28 11/11/17 17:40 Temperature Pulse Rate 70 59 L Respiratory Rate 18 18 Blood Pressure 117/76 119/59 L Pulse Oximetry 98 100 11/11/17 19:00 11/11/17 19:15 11/11/17 20:00 Temperature 98.5 F 98.2 F Pulse Rate 55 L 51 L 56 L Respiratory Rate 18 16 Blood Pressure 112/54 L 128/67 Pulse Oximetry 98 100 11/11/17 21:00 11/11/17 22:00 11/11/17 23:00 Temperature Pulse Rate 54 L 58 L 80 Respiratory Rate Blood Pressure Pulse Oximetry 11/12/17 00:00 11/12/17 01:00 11/12/17 02:00 Temperature 98.4 F Pulse Rate 56 L 58 L 62 Respiratory Rate 18 Blood Pressure 118/65 Pulse Oximetry 99 11/12/17 03:00 11/12/17 04:00 11/12/17 05:00 Temperature 98.0 F Pulse Rate 51 L 52 L 56 L Respiratory Rate 16 Blood Pressure 120/59 L Pulse Oximetry 95 11/12/17 06:00 Temperature Pulse Rate 51 L Respiratory Rate Blood Pressure Pulse Oximetry Intake & Output 11/11/17 11/12/17 11/12/17 18:59 06:59 18:59 Intake Total 2910 / 2910 Output Total 1100 / 1100 Balance 1810 / 1810 Weight 95.254 kg 96.3 kg Intake: IV 2190 / 2190 Heparin/D5W 25,000 U/250 mL 25, 40 / 40 000 unit In 250 ml @ Per Protocol IV.CONT TITRATE PRN Rx #:[id number] NS Inj 1,000 ML @ 100 mls/hr IV 900 / 900 .CONT .Q10H BLAYNE Rx#:[id number] NS Inj 1,000 ML @ Wide Open IV. 1000 / 1000 SIG BOLUS ONE Rx#:[id number] Oral 720 / 720 Output: Urine 1100 / 1100 - Constitutional no acute distress - Routine Neck Exam Absent: JVD - Routine Respiratory Exam Present: CTA bilaterally - Routine Cardiovascular Exam Present: RRR, S1, S2. Absent: murmur, gallop - Routine Abdominal Exam Present: soft, normoactive bowel sounds. Absent: tenderness, organomegaly - Routine Extremities Exam Absent: cyanosis, clubbing, edema Assessment and Plan - Assessment (1) NSTEMI (non-ST elevated myocardial infarction) Code(s): I21.4 - Non-ST elevation (NSTEMI) myocardial infarction Status: Acute Plan: Stable overnight. Angina resolved. Troponin levels trending downward. No CHF/ arrhythmias so far. Echo pending. REC cath Tuesday, check lipid profile after cath, add SEPIDEH-I, no beta william with relatively low HR's. Continue heparin. - Plan Code Status: full code Discussed Condition With: patient
[2017-11-12] MEDS ORDERED: Heparin 10,000 UNITS/10 ML Vial (for IV use) IV.PUSH PRN (12:21)
--- NOTE | 2017-11-12 17:17 | ECG ---
Date Performed: 11/11/2017 Time Performed: 13:13:03 PTAGE: 52 years EKG: SINUS BRADYCARDIA MODERATE T-WAVE ABNORMALITY, CONSIDER INFERIOR ISCHEMIA ABNORMAL ECG NO PREVIOUS TRACING DOCTOR: Margi Allen Interpretating Date/Time 11/12/2017 17:16:54
[2017-11-12] MEDS: Heparin 10,000 UNITS/10 ML Vial (for IV use) IV.PUSH PRN (17:52)
[2017-11-12] MEDS: Morphine Inj 4 MG/ML Vial IV.PUSH PRN (22:14)
[2017-11-13] MEDS: Heparin 10,000 UNITS/10 ML Vial (for IV use) IV.PUSH PRN ×3 (02:15→22:22)
[2017-11-13 04:34] LABS: Baso # (Auto) 0.1 th/mm3 (0.0-0.2); Eos # (Auto) 0.4 th/mm3 (0.0-0.4); Eos % (Auto) 5.4 % (0.0-4.0); Hematocrit 39.9 % (39.0-51.0); Hemoglobin 14.2 gm/dL (13.0-17.0); Lymph # (Auto) 3.6 th/mm3 (1.0-4.8); Lymph % (Auto) 44.4 % (9.0-44.0); Mean Corpuscular HGB Conc 35.5 % (32.0-36.0); Mean Corpuscular Hemoglobin 31.5 pg (27.0-34.0); Mean Corpuscular Volume 88.8 fL (80.0-100.0); Mean Platelet Volume 8.6 fL (7.0-11.0); Mono # (Auto) 0.6 th/mm3 (0.0-0.9); Mono % (Auto) 7.7 % (0.0-8.0); Neut # (Auto) 3.4 th/mm3 (1.8-7.7); Neut % (Auto) 41.5 % (16.0-70.0); Platelet Count 180 th/mm3 (150-450); Red Cell Distribution Width 12.9 % (11.6-17.2); White Blood Count 8.2 th/mm3 (4.0-11.0)
[2017-11-13 05:26] LABS: Alanine Aminotransferase 27 U/L (12-78); Albumin 3.5 g/dL (3.4-5.0); Alkaline Phosphatase 62 U/L (45-117); Anion Gap 11 meq/L (5-15); Aspartate Aminotransferase 30 U/L (15-37); Blood Urea Nitrogen 10 mg/dL (7-18); Calcium 8.2 mg/dL (8.5-10.1); Carbon Dioxide 24.4 meq/L (21.0-32.0); Chloride 108 meq/L (98-107); Glomerular Filtration Rate 74 mL/min (>89); Glucose,Random 101 mg/dL (74-106); Potassium 3.9 meq/L (3.5-5.1); Sodium 143 meq/L (136-145)
[2017-11-13 06:25] LABS: Chol/HDL Ratio 4.83 Ratio; Cholesterol 256 mg/dL (120-200); HDL Cholesterol 52.9 mg/dL (40.0-60.0); LDL Cholesterol,Calculated 172 mg/dL (0-99); Triglycerides 155 mg/dL (42-150)
[2017-11-13] MEDS: Sod Chloride 0.9% Inj 1,000 ML IV.CONT SCH ×2 (08:57→22:48)
--- NOTE | 2017-11-13 12:45 | P.PN ---
Subjective Interval history: Follow-up non-ST elevation [place] November 12, 2017-patient seen and examined, continued to complain of substernal chest pain. Poison control was called overnight secondary to possible Aggrastat toxicity, however platelet count remains stable November 13, 2017-patient seen and examined; complaint of chest discomfort for without any shortness of breath. Patient's quite anxious. Stated he did not have a good night sleep. Physical Exam Vital signs: Vital Signs 11/12/17 13:00 11/12/17 14:00 11/12/17 15:00 Temperature Pulse Rate 81 60 54 L Respiratory Rate Blood Pressure Pulse Oximetry 11/12/17 15:38 11/12/17 16:00 11/12/17 17:00 Temperature 98.6 F Pulse Rate 60 58 L Respiratory Rate 16 Blood Pressure 157/74 H Pulse Oximetry 100 98 11/12/17 18:00 11/12/17 19:00 11/12/17 20:00 Temperature 98.8 F Pulse Rate 54 L 66 76 Respiratory Rate 16 Blood Pressure 157/91 H Pulse Oximetry 96 11/12/17 20:10 11/12/17 21:00 11/12/17 22:00 Temperature Pulse Rate 58 L 52 L Respiratory Rate Blood Pressure Pulse Oximetry 96 11/12/17 22:15 11/12/17 23:00 11/13/17 00:00 Temperature 98.7 F Pulse Rate 55 L 52 L Respiratory Rate 16 16 Blood Pressure 157/89 H Pulse Oximetry 96 11/13/17 01:00 11/13/17 02:00 11/13/17 03:00 Temperature Pulse Rate 48 L 54 L 44 L Respiratory Rate Blood Pressure Pulse Oximetry 11/13/17 04:00 11/13/17 05:00 11/13/17 06:00 Temperature 98.7 F Pulse Rate 44 L 41 L 42 L Respiratory Rate 16 Blood Pressure 138/88 Pulse Oximetry 95 11/13/17 08:00 11/13/17 11:29 Temperature 97.9 F Pulse Rate 58 L Respiratory Rate 16 Blood Pressure 151/86 H Pulse Oximetry 96 95 Intake & Output 11/12/17 11/13/17 11/13/17 18:59 06:59 18:59 Intake Total 3160 / 3160 1890 / 1890 Output Total 2100 / 2100 2125 / 2125 Balance 1060 / 1060 -235 / -235 Weight 96.2 kg Intake: IV 1000 / 1000 1210 / 1210 Heparin/D5W 25,000 U/250 mL 25, 210 / 210 000 unit In 250 ml @ Per Protocol IV.CONT TITRATE PRN Rx #:[id number] NS Inj 1,000 ML @ 100 mls/hr IV 1000 / 1000 1000 / 1000 .CONT .Q10H BLAYNE Rx#:[id number] Oral 2160 / 2160 680 / 680 Output: Urine 2100 / 2100 1425 / 1425 Stool 400 / 400 Urine Amount (Catheter) 300 / 300 Indwelling Urethral Catheter 300 / 300 Other: Date of Last Bowel Movement 11/12/17 11/14/15 11/12/17 Narrative: GENERAL: NAD SKIN: Warm and dry. HEAD: Normocephalic. EYES: No scleral icterus. No injection or drainage. NECK: Supple, trachea midline. No JVD or lymphadenopathy. CARDIOVASCULAR: Regular rate and rhythm without murmurs, gallops, or rubs. RESPIRATORY: Breath sounds equal bilaterally. No accessory muscle use. GASTROINTESTINAL: Abdomen soft, non-tender, nondistended. MUSCULOSKELETAL: No cyanosis, or edema. BACK: Nontender without obvious deformity. No CVA tenderness. - Urinary Catheter Management Indwelling Urethral Catheter Cath placed during this visit: no Results - Labs CBC & Chem 7: 11/13/17 03:40 11/13/17 03:40 Laboratory Results - last 24 hr 11/12/17 11/12/17 11/13/17 14:05 22:55 03:40 WBC 8.2 RBC 4.50 Hgb 14.2 Hct 39.9 MCV 88.8 MCH 31.5 MCHC 35.5 RDW 12.9 Plt Count 180 MPV 8.6 Neut % (Auto) 41.5 Lymph % (Auto) 44.4 H Bertie % (Auto) 7.7 Eos % (Auto) 5.4 H Baso % (Auto) 1.0 Neut # (Auto) 3.4 Lymph # (Auto) 3.6 Bertie # (Auto) 0.6 Eos # (Auto) 0.4 Baso # (Auto) 0.1 WBC Differential . Differential Comment Auto diff final APTT 32.4 H D 38.7 H Sodium Potassium Chloride Carbon Dioxide Anion Gap BUN Creatinine Estimated GFR Random Glucose Calcium Total Bilirubin AST ALT Alkaline Phosphatase Total Protein Albumin Triglycerides Cholesterol LDL Cholesterol, Calc HDL Cholesterol Cholesterol/HDL Ratio 11/13/17 11/13/17 11/13/17 03:40 03:40 10:28 WBC RBC Hgb Hct MCV MCH MCHC RDW Plt Count MPV Neut % (Auto) Lymph % (Auto) Bertie % (Auto) Eos % (Auto) Baso % (Auto) Neut # (Auto) Lymph # (Auto) Bertie # (Auto) Eos # (Auto) Baso # (Auto) WBC Differential Differential Comment APTT 65.1 H D 38.0 H D Sodium 143 Potassium 3.9 Chloride 108 H Carbon Dioxide 24.4 Anion Gap 11 BUN 10 Creatinine 1.06 Estimated GFR 74 L Random Glucose 101 Calcium 8.2 L D Total Bilirubin 0.4 AST 30 ALT 27 Alkaline Phosphatase 62 Total Protein 7.0 D Albumin 3.5 D Triglycerides 155 H Cholesterol 256 H LDL Cholesterol, Calc 172 H HDL Cholesterol 52.9 Cholesterol/HDL Ratio 4.83 Microbiology 11/12/17 13:00 Stool Stool Occult Blood (RUSLAN) - Final Hemoccult negative Assessment and Plan - Assessment (1) Chest pain Code(s): R07.9 - Chest pain, unspecified Status: Acute (2) NSTEMI (non-ST elevated myocardial infarction) Code(s): I21.4 - Non-ST elevation (NSTEMI) myocardial infarction Status: Acute (3) Elevated troponin I level Code(s): R74.8 - Abnormal levels of other serum enzymes Status: Acute (4) GERD (gastroesophageal reflux disease) Code(s): K21.9 - Gastro-esophageal reflux disease without esophagitis Status: Acute (5) Nicotine dependence Code(s): F17.200 - Nicotine dependence, unspecified, uncomplicated Status: Acute - Plan 52-year-old man with Non-ST elevation PA Currently on heparin and nitroglycerin drips beta-willaim not initiated per cardiology Continue aspirin, SEPIDEH inhibitor 2D echo pending. Bilateral carotid ultrasound stable Plan for left heart catheterization tomorrow Tuesday, November 14, 2017 Appreciate input from cardiology Syncope Echocardiogram pending Bilateral carotid ultrasound without any evidence of stenosis Follow on telemetry Gastroesophageal reflux disease Not likely contributory at this point Resume Protonix 40 mg daily DVT prophylaxis Heparin
--- NOTE | 2017-11-13 12:59 | ECG ---
Date Performed: 11/11/2017 Time Performed: 20:08:14 PTAGE: 52 years EKG: Sinus bradycardia Inferior ST-T changes may be due to myocardial ischemia Abnormal ECG Sinc e the PREVIOUS TRACING , no significant change noted PREVIOUS TRACIN11/11/2017 13.13 DOCTOR: Sin Goss Interpretating Date/Time 11/13/2017 12:57:53
--- NOTE | 2017-11-13 14:58 | ECHRPT ---
Indication: NSTEMI, CARDIOMYOPATHY CONCLUSIONS Normal left ventricular size. Mild concentric left ventricular hypertrophy. Normal left ventricular systolic function with an ejection fraction of 60-65%. The left atrial size is mildly dilated. A possible atrial level shunt (possible PFO) is demonstrated by color flow Doppler interrogation, cl inical correlation recommended. The atrial septum is aneurysmal. Mild mitral valve regurgitation. There is trace tricuspid valve regurgitation. The estimated pulmonary arterial pressure is 36 mmHg. Mild pulmonary valve regurgitation. BP: / HR: Rhythm: Sinus MEASUREMENTS (Male / Female) Normal Values Technical Quality:Fair 2D ECHO LV Diastolic Diameter PLAX 5.1 cm 4.2 - 5.9 / 3.9 - 5.3 cm LV Systolic Diameter PLAX 3.7 cm IVS Diastolic Thickness 1.1 cm 0.6 - 1.0 / 0.6 - 0.9 cm LVPW Diastolic Thickness 1.1 cm 0.6 - 1.0 / 0.6 - 0.9 cm LV Relative Wall Thickness 0.4 RV Internal Dim ED PLAX 3.1 cm LVOT Diameter 2.3 cm Aortic Root Diameter 3.2 cm LA Systolic Diameter LX 3.9 cm 3.0 - 4.0 / 2.7 - 3.8 cm M-MODE AV Cusp Separation MM 2.3 cm DOPPLER AV Peak Velocity 135.0 cm/s AV Peak Gradient 7.3 mmHg AV Mean Gradient 4.0 mmHg AV Velocity Time Integral 28.5 cm LVOT Peak Velocity 67.7 cm/s LVOT Peak Gradient 1.8 mmHg LVOT Velocity Time Integral 14.9 cm AV Area Cont Eq vti 2.2 cm AV Area Cont Eq pk 2.1 cm Mitral E Point Velocity 98.2 cm/s Mitral A Point Velocity 47.4 cm/s Mitral E to A Ratio 2.1 TR Peak Velocity 255.0 cm/s TR Peak Gradient 26.0 mmHg Right Atrial Pressure 10.0 mmHg Pulmonary Artery Systolic Pressu 36.0 mmHg Right Ventricular Systolic Press 36.0 mmHg PV Peak Velocity 57.1 cm/s PV Peak Gradient 1.3 mmHg FINDINGS LEFT VENTRICLE Normal left ventricular size. Mild concentric left ventricular hypertrophy. The left ventricular systolic function is normal with an estimated ejection fraction in the range of 60-65%. RIGHT VENTRICLE Normal right ventricular size and systolic function. LEFT ATRIUM The left atrial size is mildly dilated. RIGHT ATRIUM The right atrial size is normal. ATRIAL SEPTUM A possible atrial level shunt is demonstrated by color flow Doppler interrogation, clinical correlat ion recommended. The atrial septum is aneurysmal. AORTA The aortic root and proximal ascending aorta are normal in size on limited imaging. MITRAL VALVE Mild mitral valve regurgitation. AORTIC VALVE Trileaflet aortic valve. No aortic valve stenosis or regurgitation. TRICUSPID VALVE There is trace tricuspid valve regurgitation. The estimated pulmonary arterial pressure is 36 mmHg. PULMONARY VALVE Mild pulmonary valve regurgitation. VESSELS The inferior vena cava is normal in size. PERICARDIUM No pericardial effusion. Sin Goss MD (Electronically Signed) Final Date:13 November 2017 14:57
[2017-11-13] MEDS: Heparin Drip 25,000 UNIT/250 ML BAG IV.CONT PRN (17:35)
[2017-11-14] MEDS ORDERED: Metoprolol Tartrate 25 MG Tablet PO SCH (05:00)
[2017-11-14] MEDS: Sod Chloride 0.9% Inj 1,000 ML IV.CONT SCH ×4 (06:47→23:10)
[2017-11-14 07:20] LABS: Calcium 8.6 mg/dL (8.5-10.1); Potassium 3.8 meq/L (3.5-5.1)
[2017-11-14] MEDS ORDERED: Heparin/NS PF Inj 1,000 ML ONE (08:55)
[2017-11-14] MEDS ORDERED: fentaNYL Citrate Inj 100 MCG/2 ML Ampul ONE (08:56)
[2017-11-14] MEDS ORDERED: Heparin 10,000 UNITS/10 ML Vial (for IV use) ONE ×2 (08:56→10:37)
--- NOTE | 2017-11-14 10:37 | P.PN ---
Subjective Interval history: Follow-up non-ST elevation [place] November 12, 2017-patient seen and examined, continued to complain of substernal chest pain. Poison control was called overnight secondary to possible Aggrastat toxicity, however platelet count remains stable November 13, 2017-patient seen and examined; complaint of chest discomfort for without any shortness of breath. Patient's quite anxious. Stated he did not have a good night sleep. November 14, 2017-patient seen and examined, still with chest discomfort. Currently n.p.o. and heading for left heart catheterization. Family members by the bedside Physical Exam Vital signs: Vital Signs 11/13/17 11:00 11/13/17 11:29 11/13/17 12:00 Temperature 98 F Pulse Rate 42 L 52 L Respiratory Rate 18 Blood Pressure 131/82 Pulse Oximetry 95 96 11/13/17 13:00 11/13/17 14:00 11/13/17 15:00 Temperature Pulse Rate 50 L 54 L 55 L Respiratory Rate Blood Pressure Pulse Oximetry 11/13/17 16:00 11/13/17 17:00 11/13/17 18:00 Temperature 97.9 F Pulse Rate 47 L 55 L 50 L Respiratory Rate 16 Blood Pressure 137/76 Pulse Oximetry 98 11/13/17 19:00 11/13/17 19:50 11/13/17 20:00 Temperature 98.6 F Pulse Rate 57 L 52 L Respiratory Rate 18 Blood Pressure 146/82 H Pulse Oximetry 96 96 11/13/17 21:00 11/13/17 22:00 11/13/17 23:00 Temperature Pulse Rate 54 L 60 48 L Respiratory Rate Blood Pressure Pulse Oximetry 11/13/17 23:39 11/14/17 00:00 11/14/17 01:00 Temperature 98.1 F Pulse Rate 53 L 48 L 44 L Respiratory Rate 18 Blood Pressure 137/82 Pulse Oximetry 96 11/14/17 02:00 11/14/17 03:00 11/14/17 04:00 Temperature 97.9 F Pulse Rate 46 L 46 L 47 L Respiratory Rate 18 Blood Pressure 148/64 H Pulse Oximetry 96 11/14/17 05:00 11/14/17 06:00 11/14/17 07:00 Temperature Pulse Rate 48 L 41 L 46 L Respiratory Rate Blood Pressure Pulse Oximetry 11/14/17 08:00 Temperature 97.4 F L Pulse Rate 53 L Respiratory Rate 16 Blood Pressure 143/96 H Pulse Oximetry 96 Intake & Output 11/13/17 11/14/17 11/14/17 18:59 06:59 18:59 Intake Total 1320 / 1320 240 / 240 Output Total 2200 / 2200 1200 / 1200 Balance -880 / -880 -960 / -960 Weight 96.1 kg Intake: Oral 1320 / 1320 240 / 240 Output: Urine 2200 / 2200 1200 / 1200 Other: Date of Last Bowel Movement 11/12/17 Narrative: GENERAL: NAD SKIN: Warm and dry. HEAD: Normocephalic. EYES: No scleral icterus. No injection or drainage. NECK: Supple, trachea midline. No JVD or lymphadenopathy. CARDIOVASCULAR: Regular rate and rhythm without murmurs, gallops, or rubs. RESPIRATORY: Breath sounds equal bilaterally. No accessory muscle use. GASTROINTESTINAL: Abdomen soft, non-tender, nondistended. MUSCULOSKELETAL: No cyanosis, or edema. BACK: Nontender without obvious deformity. No CVA tenderness. - Urinary Catheter Management Indwelling Urethral Catheter Cath placed during this visit: no Results - Labs CBC & Chem 7: 11/13/17 03:40 11/14/17 04:36 Laboratory Results - last 24 hr 11/13/17 11/13/17 11/14/17 10:28 19:38 04:36 APTT 38.0 H D 34.8 H Sodium 142 Potassium 3.8 Chloride 107 Carbon Dioxide 23.0 Anion Gap 12 BUN 9 Creatinine 1.06 Estimated GFR 74 L Random Glucose 98 Calcium 8.6 11/14/17 04:36 APTT 49.0 H D Sodium Potassium Chloride Carbon Dioxide Anion Gap BUN Creatinine Estimated GFR Random Glucose Calcium Assessment and Plan - Assessment (1) Chest pain Code(s): R07.9 - Chest pain, unspecified Status: Acute (2) NSTEMI (non-ST elevated myocardial infarction) Code(s): I21.4 - Non-ST elevation (NSTEMI) myocardial infarction Status: Acute (3) Elevated troponin I level Code(s): R74.8 - Abnormal levels of other serum enzymes Status: Acute (4) GERD (gastroesophageal reflux disease) Code(s): K21.9 - Gastro-esophageal reflux disease without esophagitis Status: Acute (5) Nicotine dependence Code(s): F17.200 - Nicotine dependence, unspecified, uncomplicated Status: Acute - Plan 52-year-old man with Non-ST elevation NE Currently on heparin and nitroglycerin drips beta-william not initiated per cardiology Continue aspirin, SEPIDEH inhibitor Bilateral carotid ultrasound stable Plan for left heart catheterization today Tuesday, November 14, 2017 Appreciate input from cardiology Syncope Echocardiogram pending Bilateral carotid ultrasound without any evidence of stenosis Follow on telemetry Gastroesophageal reflux disease Not likely contributory at this point Continue Protonix 40 mg daily DVT prophylaxis Heparin
[2017-11-14] MEDS ORDERED: Atropine Inj 1 MG/ML Vial IV.PUSH PRN (11:06)
--- NOTE | 2017-11-14 11:06 | P.PNCA ---
Subjective Interval history: Feels "good". No CP, dyspnea, dizziness, palpitations. Physical Exam Vital signs: Vital Signs 11/13/17 11:29 11/13/17 12:00 11/13/17 13:00 Temperature 98 F Pulse Rate 52 L 50 L Respiratory Rate 18 Blood Pressure 131/82 Pulse Oximetry 95 96 11/13/17 14:00 11/13/17 15:00 11/13/17 16:00 Temperature 97.9 F Pulse Rate 54 L 55 L 47 L Respiratory Rate 16 Blood Pressure 137/76 Pulse Oximetry 98 11/13/17 17:00 11/13/17 18:00 11/13/17 19:00 Temperature Pulse Rate 55 L 50 L 57 L Respiratory Rate Blood Pressure Pulse Oximetry 11/13/17 19:50 11/13/17 20:00 11/13/17 21:00 Temperature 98.6 F Pulse Rate 52 L 54 L Respiratory Rate 18 Blood Pressure 146/82 H Pulse Oximetry 96 96 11/13/17 22:00 11/13/17 23:00 11/13/17 23:39 Temperature 98.1 F Pulse Rate 60 48 L 53 L Respiratory Rate 18 Blood Pressure 137/82 Pulse Oximetry 96 11/14/17 00:00 11/14/17 01:00 11/14/17 02:00 Temperature Pulse Rate 48 L 44 L 46 L Respiratory Rate Blood Pressure Pulse Oximetry 11/14/17 03:00 11/14/17 04:00 11/14/17 05:00 Temperature 97.9 F Pulse Rate 46 L 47 L 48 L Respiratory Rate 18 Blood Pressure 148/64 H Pulse Oximetry 96 11/14/17 06:00 11/14/17 07:00 11/14/17 08:00 Temperature 97.4 F L Pulse Rate 41 L 46 L 53 L Respiratory Rate 16 Blood Pressure 143/96 H Pulse Oximetry 96 Intake & Output 11/13/17 11/14/17 11/14/17 18:59 06:59 18:59 Intake Total 1320 / 1320 240 / 240 810 / 810 Output Total 2200 / 2200 1200 / 1200 Balance -880 / -880 -960 / -960 810 / 810 Weight 96.1 kg Intake: IV 10 / 10 Heparin/NS PF Inj 1,000 ML @ 0 10 / 10 mls/hr .ROUTE .STK-MED ONE Rx#: [id number] Oral 1320 / 1320 240 / 240 Anesthesia Amount 800 / 800 Output: Urine 2200 / 2200 1200 / 1200 Other: Date of Last Bowel Movement 11/12/17 - Constitutional no acute distress - Routine Neck Exam Absent: JVD - Routine Respiratory Exam Present: CTA bilaterally - Routine Cardiovascular Exam Present: RRR, S1, S2. Absent: murmur, gallop - Routine Abdominal Exam Present: soft, normoactive bowel sounds. Absent: tenderness, organomegaly - Routine Extremities Exam Absent: cyanosis, clubbing, edema - Urinary Catheter Management Indwelling Urethral Catheter Cath placed during this visit: no Assessment and Plan - Assessment (1) NSTEMI (non-ST elevated myocardial infarction) Code(s): I21.4 - Non-ST elevation (NSTEMI) myocardial infarction Status: Acute Plan: Stable overnight. Angina resolved. Troponin levels trending downward. No CHF/ arrhythmias so far. Cath today shows severe left main, severe proximal LAD and ostial to proximal RCA disease, EF 60%. Continue SEPIDEH-I, no beta william with relatively low HR's. Consult CV surgery for CABG. - Plan Code Status: full code Discussed Condition With: patient's and mother at length, patient
--- NOTE | 2017-11-14 11:10 | CATHPROC ---
[employer] HIS Report Study Information Study Number Admission Scheduled Start Study Start [id number] Nov 11 2017 4:33PM 11/14/2017 Nov 14 2017 8:45AM [facility] Cardiac Catheterization Admit Source Facility Department Emergency department [facility] - Lab[employer] Physician and Clinical Staff Initial Danny Nuno Multi Media Specialist Florencia Nayak,DAVE Multi Media Specialist Yoav Artis RN Other Robert Contreras RCIS(BS) Recorder Genaro Goodman,RT(R) Scrub Brisa AlmeidaRT(R) Procedures Performed Procedure Location (Site) Vessel Name Angiogram LV LV Ventricle Coronary Angiograms RCA Right Coronary Coronary Angiograms Asc. Aorta (A) IVUS Lft Main Left Coronary L Heart Cath Wire insertion Fem Art (right) Femoral Art Equipment Time Otr Tanker Truck Driver Description Size Mfg Part Number Used/Scraped [id number] 10:28 LIN CRITICAL CARE WIRE, Startup [employer] PROWATER 180CM 180CM Used *[id number] TRANSDUCER, TRUWAVE [id number] 08:52 CHRIS FORD * Used W/STOCKCOCK *[id number] ART 3.5 GUIDE CATHETER [id number] 10:11 [employer] FR 6 Used RUNWAY *[id number] 10:40 CARDIVA MEDICAL VASCADE, FR6 CLOSURE SYSTEM FR 6\\7 Used *[id number] 534-676T *[id number] 534-645T *4895145 534-648T *4129160 534-620T *6465236 534-521T *3757379 534-542T *9806689 534-550S *1748979 670-054-00 *3702952 112147 08:52 MALLINCKRODT SYRINGE, ANGIOMAT 150ML 150ML *[id number] Used 2SUB MEDICAL CONCEPT DRAPE, RADIAL FEMORAL FULL 08:52 * [id number] *[id number] Used DEVELOPMENT BODY [id number] 08:52 [place] BLANKET,WARM AIR CCL * Used *[id number] 08:52 MEDLINE INDUSTRIES PACK, CCL CUSTOM * Used *[id number] 08:52 MEDLINE Splurgy SUPPORT, ARTERIAL ADULT 91740 *[id number] Used [id number] 08:52 MEDLINE PACER PEN, SKIN DUAL W/ RULER * Used *[id number] 09:25 MEDTRONIC JR 5.0 DXTERITY CATHETER fr 5 [id number] Used BAND, RADIAL COMPRESSION TR [id number] 10:41 [employer] MEDICAL 24CM Used SHORT 24 *[id number] 09:36 [employer] MEDICAL PACK, ANGIOPLASTY * [id number] Used SHEATH, FR6 RADIAL PRELUDE 08:52 Wysiwyg FR 6 [id number] Used EASE 11CM [id number] 10:00 [employer] SHEATH, FR6.5 PRELUDE 11CM FR 6.5 038ACT Used *[id number] 10:24 [employer] WIRE, 3MMJ .035 180CM 180CM Used *[id number] 08:52 [employer] WIRE, EXCHANGE 260CM 3MMJ 260CM Used *[id number] [id number] 08:52 NAMIC MANIFOLD, 4 PORT * Used *6682924 TUBING, PRESSURE INJECTION [id number] 09:30 NAMIC 72" Used 72" *6538362 08:52 NYCOMED OMNIPAQUE, 350 MG, 150ML 150ML [id number] Used 09:46 NYCOMED OMNIPAQUE, 350 MG, 50ML 50ML [id number] Used 09:46 NYCOMED OMNIPAQUE, 350 MG, 50ML 50ML [id number] Used CATHETER, FR5 OPTITORQUE [id number] 09:20 TER[employer] MEDICAL FR 5 Used RADIAL TIG 4.5 *[id number] CATHETER, LAC VIEUX EYE NIKOLSKI [id number] 09:48 [place]OL[place]O Used IMAGING *[id number] Equipment Model, Serial, Lot Number and Expiration Data Description Model Number Serial Number Lot Number Expiration Date ART 3.5 GUIDE CATHETER [id number] 11-19-2019 RUNWAY CATHETER, LAC VIEUX EYE NIKOLSKI 01068 [id number] 07-19-2019 IMAGING PACK, ANGIOPLASTY [id number] 03-20-2020 WIRE, 3MMJ .035 180CM [id number] 07-18-2020 History: Current Medications Medication Dosage/Unit Route Frequency Last Date/Time Taken ASA VASOTEC History: Allergies Allergy Reaction No Known Allergies History: Risk Factors Family History of Hypertension Dyslipidemia Previous ND Previous Heart Failure Premature CAD No Yes Yes No No Prior Valve Prior PCI Prior CABG Surgery No No No Cerebrovascular Peripheral Artery Chronic Lung On Dialysis Diabetes Disease Disease Disease No No No Yes No History: Risk Factors Selection Items Hyperlipidemia History: Symptoms/Diagnosis Selection Items Chest pain Syncope History: Stress Tests Stress or Imaging Studies Performed No History: Other Disease Selection Items Gerd History: Other Current Smoker Method Packs a Day Years Used Pack Years Yes Cigarettes 1 25 25 Labs Hgb (g/dl) Hct (%) RBC (MIL/MM3) WBC (l/cumm) Platelets (thousands) 11.60-17.00 35.00-51.00 4.00-5.90 4.00-11.00 150.00-450.00 14.2 39.9 4.5 8.2 180 Glucose (mg/dl) BUN (mg/dl) Creatinine (mg/dl) BUN:Creatinine (1:x) 74.00-106.00 7.00-18.00 0.50-1.30 10.00-20.00 98 9 1.0 9 Na (meq/l) K (meq/l) Cl (meq/l) CO2 (mmol/L) Ca (mg/dl) 136.00-145.00 3.50-5.10 98.00-107.00 21.00-32.00 8.50-10.10 142 3.8 107 23 8.6 PT (sec) PTT (sec) INR (PTT:PT) 9.80-11.60 24.30-30.10 0.90-1.10 10.9 24.6 1.1 Troponin I (ng/ml) Troponin T (ng/ml) CPK (u/l) CPK-MB (ng/ML) 0.02-0.05 0.40-2.10 26.00-308.00 0.50-3.60 4.16 3.98 209 Not Drawn Medication Medication Total Dose (Bolus/Oral) Medication Total Dosage/Unit 1% XYLOCAINE 25 mL FENTANYL 100 mcg HEPARIN 6700 units NTG (IC) 200 mcg RADIAL COCKTAIL 5 mL (Bolus) VERSED 4 mg Medications (Bolus/Oral) Medication Time Given Dosage/Unit Administered By Reason VERSED 11/14/2017 9:16:05 AM 1 mg Florencia Nayak Patient arrived on 1 mg VERSED given by Florencia Nayak RN in Right Antecubital via Peripheral IV. FENTANYL 11/14/2017 9:16:16 AM 50 mcg Florencia Nayak Patient arrived on 50 mcg FENTANYL given by Florencia Nayak RN in Right Antecubital via Peripheral I V. 1% XYLOCAINE 11/14/2017 9:17:38 AM 5 mL Danny Damon 5 mL 1% XYLOCAINE given in lab by Danny Damon in Right Radial via Subcutaneous. VERSED 11/14/2017 9:18:02 AM 1 mg Florencia Nayak Patient arrived on 1 mg VERSED given by Florencia Nayak RN in Right Antecubital via Peripheral IV. Ntg 200mcg Verapamil 2.5mg Heparin RADIAL COCKTAIL 11/14/2017 9:18:43 AM 5 mL (Bolus) Danny Damon 2500U 5 mL (Bolus) RADIAL COCKTAIL given in lab by Danny Damon via Radial. Using [Solution Name]. Reason: Ntg 200mcg Heparin 2500U. FENTANYL 11/14/2017 9:23:19 AM 50 mcg Florencia Nayak Patient arrived on 50 mcg FENTANYL given by Florencia Nayak RN in Right Antecubital via Peripheral I V. VERSED 11/14/2017 9:36:58 AM 2 mg Yoav Artis Patient arrived on 2 mg VERSED given by Yoav Artis RN in Right Antecubital via Peripheral IV. NTG (IC) 11/14/2017 9:37:36 AM 100 mcg Brisa Almeida 100 mcg NTG (IC) given in lab by Brisa Almeida RT(R) via Intra-coronary. NTG (IC) 11/14/2017 9:54:53 AM 100 mcg Brisa Almeida 100 mcg NTG (IC) given in lab by Brisa Almeida RT(R) via Intra-arterial. 1% XYLOCAINE 11/14/2017 9:57:54 AM 20 mL Danny Damon 20 mL 1% XYLOCAINE given in lab by Danny Damon in Right Groin via Subcutaneous. HEPARIN 11/14/2017 10:26:22 AM 6700 units Florencia Nayak 6700 units HEPARIN given in lab by Florencia Nayak, DAVE in Right Antecubital via Peripheral IV. Medication (Drip) Medication Time Given Dosage/Unit Concentration/Unit Diluent (ml) Solution IV Solutions 11/14/2017 8:51:11 AM 0 mL (IV) 1000 NaCl .9 Patient arrived on IV Solutions in Right Antecubital via Peripheral IV. Pump/Drip Flow = 20 ml/hr usi ng NaCl .9. Initial Case Assessment Cardiovascular HR Rhythm NIBP Chest Pain 68 Irregular 164/89 0 Edema Present Skin color Skin None Normal Warm Dry Circulatory - Right Pulses Dorsalis Pedis Femoral Radial 2 2 2 Scale (0,1,2,3,4,d) Circulatory - Left Pulses Dorsalis Pedis Femoral Radial 2 2 Scale (0,1,2,3,4,d) Neurological State Oriented to time-place- Alert Moves all extremities person Respiration - General Respiration Rate SpO2 (%) O2 (lpm) (B/min) 17 99 0 Final Case Assessment Cardiovascular HR Rhythm NIBP Chest Pain 57 Irregular 155/98 0 Edema Present Skin color Skin None Normal Warm Dry Circulatory - Right Pulses Dorsalis Pedis Femoral Radial 2 2 2 Scale (0,1,2,3,4,d) Circulatory - Left Pulses Dorsalis Pedis Femoral Radial 2 2 Scale (0,1,2,3,4,d) Neurological State Oriented to time-place- Alert Moves all extremities person Respiration - General Respiration Rate SpO2 (%) O2 (lpm) (B/min) 14 100 0 Chronological Log Time Study Chronological Log 8:47:11 Patient arrived via Bed. 8:50:21 Patient Name, D.O.B, / Armband Verified By R.N. 8:50:22 Consent signed by the physician and the patient and verified by the [employer] staff. 8:50:22 Pre-op and post- op instructions given; patient acknowledges understanding of instructions. 8:50:23 Verbal Stimulation=2 Physical Stimulation=2 Airway=2 Respiration=2 TOTAL=8. (0=absent, 1=li mited, 2=present) 8:50:25 Presedation assessment performed by [employer] RN. 8:50:27 Allens test performed on the right radial and ulnar artery. 8:50:30 Patient has been NPO for More than 6Hrs. 8:50:30 Skin Breakdown- none per patient. 8:50:38 Patient Warmer Placed on the Table. 8:50:39 Radha Prominences Protected 8:50:41 A # 20 IV was noted in the Antecubital (right). Grade = 0 8:51:01 A # 20 IV was noted in the Hand (left). Grade = 0 8:51:11 Patient arrived on IV Solutions in Right Antecubital via Peripheral IV. Pump/Drip Flow = 20 ml/hr using NaCl .9. 8:51:44 History and physical on the chart or being dictated. Assessment: Initial Case, HR=68 BPM, Rhythm=Irregular, OZXV=749/89 mmhg, Chest Pain=0, Edema=Non e, Color=Normal, Skin = Warm, Dry Right Pulses: Erich Ped=2, Femoral=2, Radial=2 8:51:46 Left Pulses: Femoral=2, Radial=2 Neurological: State=Alert, Ox3, TELLO Respiration: Resp=17 B/min, SpO2=99 %, O2=0 lpm Vitals capture started with the following parameters, Patient=Adult, Interval=5 min, Initial Pre njeto=024 mmHg, 8:53:33 Deflation Rate=5 mmHg, Cuff placed on Right Arm 8:54:53 HR=54 bpm, TCDX=943/89 mmhg, QiG3=946.0 %, Pain=0, Renuka=10, Jones=2 8:55:22 Reference ECG taken 8:59:17 HR=54 bpm, CFLD=235/87 mmhg, SpO2=99.0 %, Pain=0, Renuka=10, Jones=2 9:04:17 HR=57 bpm, IIOJ=724/88 mmhg, SpO2=97.0 % 9:04:17 Right Radial and groin(s) prepped with 2% chlorhexidine, and draped after a 3 min. waiting t nella. 9:06:19 paged 9:06:20 MD responded 9:08:41 Pressure channel 1 zeroed. 9:09:13 HR=55 bpm, MOQJ=115/94 mmhg, SpO2=97.0 %, Pain=0, Renuka=10, Jones=2 9:13:45 MD arrived. 9:14:19 HR=54 bpm, LIKE=119/93 mmhg, SpO2=99.0 %, Pain=0, Renuka=10, Jones=2 9:16:05 Patient arrived on 1 mg VERSED given by Florencia Nayak, DAVE in Right Antecubital via Periphe ral IV. 9:16:16 Patient arrived on 50 mcg FENTANYL given by Florencia Nayak, DAVE in Right Antecubital via Per ipheral IV. Time Out. Correct patient, correct procedure, correct physician, labs, allergies, and equipment verified with cathead worker 9:17:09 team present. Fire risk assesment completed (see hard stop sheet for coding). Time Out Concu rred by MD and individual staff in procedure. ::38 Case Start ::38 5 mL 1% XYLOCAINE given in lab by Danny Damon in Right Radial via Subcutaneous. 9:18:02 Patient arrived on 1 mg VERSED given by Florencai Nayak RN in Right Antecubital via Periphe ral IV. 9:18:06 Access site was Right Radial Artery . A SHEATH, FR6 RADIAL PRELUDE EASE 11CM FR 6 was advanced into the Radial (right) using the Percu taneous 9::18 technique. 5 mL (Bolus) RADIAL COCKTAIL given in lab by Danny Damon via Radial. Using [Solution Name]. Byron son: Ntg 200mcg 9:18:43 Heparin 2500U. 9:19:14 HR=62 bpm, YAMF=581/96 mmhg, SpO2=97.0 %, Pain=0, Renuka=10, Jones=2 A CATHETER, FR5 OPTITORQUE RADIAL TIG 4.5 FR 5 was advanced over a wire. OMNIPAQUE, 350 MG, 150M L 150ML 9:19:21 was used for injections. 9:20:50 The RCA was injected and visualized at various angles. OMNIPAQUE, 350 MG, 150ML 150ML used. 9:23:19 Patient arrived on 50 mcg FENTANYL given by Florencia Nayak RN in Right Antecubital via Per ipheral IV. 9:23:43 Patient voiced chest pain 9:24:15 HR=77 bpm, XBSA=615/89 mmhg, SpO2=90.0 %, Pain=0, Renuka=10, Jones=2 After removing the current catheter a JR 5.0 DXTERITY CATHETER fr 5 was advanced over a WIRE, EX CHANGE 260CM 9:25:11 3MMJ 260CM. After removing the current catheter a PIGTAIL STR. INFINITI CATHETER FR 5 was advanced over a WI RE, EXCHANGE 9:28:26 260CM 3MMJ 260CM. 9:29:14 HR=56 bpm, GXMD=420/93 mmhg, SpO2=94.0 %, Pain=0, Renuka=10, Jones=2 Recorded Pressure: LV, HR=57, Condition=Condition 1 9:30:06 (Left Ventricle) LV 159/3/10 9:31:52 The LV was injected at 12 cc/sec for a total of 32. OMNIPAQUE, 350 MG, 150ML 150ML used. Recorded Pressure: LV, Ao, HR=56, Condition=Condition 1 9:32:31 (Left Ventricle) LV 141/-5/18, (Aorta) Ao 146/83/109 After removing the current catheter a AR MOD INFINITI CATHETER FR 6 was advanced over a WIRE, E XCHANGE 260CM 9:32:59 3MMJ 260CM. 9:35:00 HR=51 bpm, ZWRK=712/97 mmhg, SpO2=94.0 %, Pain=0, Renuka=10, Jones=2 9:36:58 Patient arrived on 2 mg VERSED given by Yoav Artis, RN in Right Antecubital via Peripheral IV. After removing the current catheter a AL 1 INFINITI CATHETER FR 6 was advanced over a WIRE, EXC HANGE 260CM 9:37:07 3MMJ 260CM. 9:37:36 100 mcg NTG (IC) given in lab by Brisa Almeida RT(R) via Intra-coronary. 9:39:18 HR=58 bpm, CLKT=766/80 mmhg, SpO2=90.0 %, Pain=0, Renuka=10, Jones=2 After removing the current catheter a PIGTAIL STR. INFINITI CATHETER FR 5 was advanced over a W ANNETTE, EXCHANGE 9:41:34 260CM 3MMJ 260CM. 9:44:15 HR=55 bpm, WGSL=813/98 mmhg, SpO2=99.0 %, Pain=0, Renuka=10, Jones=2 9:45:08 The Asc. Aorta (A) was injected and visualized at various angles. OMNIPAQUE, 350 MG, 50ML 50 ML used. After removing the current catheter a AL 1 INFINITI CATHETER FR 6 was advanced over a WIRE, EXC HANGE 260CM 9:46:28 3MMJ 260CM. 9:50:01 HR=56 bpm, WDDQ=452/87 mmhg, SpO2=93.0 %, Pain=0, Renuka=10, Jones=2 After removing the current catheter a MPA-2 INFINITI CATHETER FR 5 was advanced over a WIRE, EX CHANGE 260CM 9:50:50 3MMJ 260CM. After removing the current catheter a CATHETER, FR5 OPTITORQUE RADIAL TIG 4.5 FR 5 was advanced over a WIRE, 9:54:06 EXCHANGE 260CM 3MMJ 260CM. 9:54:53 100 mcg NTG (IC) given in lab by Brisa Almeida RT(R) via Intra-arterial. 9:55:04 HR=49 bpm, TIIH=110/87 mmhg, SpO2=98.0 %, Pain=0, Renuka=10, Jones=2 9:57:47 Catheter was removed 9:57:54 20 mL 1% XYLOCAINE given in lab by Danny Damon in Right Groin via Subcutaneous. 9:59:01 Access site was Right Femoral Artery. 9:59:18 HR=50 bpm, HXQD=460/80 mmhg, SpO2=98.0 %, Pain=0, Renuka=10, Jones=2 9:59:19 A SHEATH, FR6.5 PRELUDE 11CM FR 6.5 was advanced into the Fem Art (right) using the Percutan eous technique. A AL 1 INFINITI CATHETER FR 6 was advanced over a wire. OMNIPAQUE, 350 MG, 150ML 150ML was used for 9:59:51 injections. After removing the current catheter a 3DRC INFINITI CATHETER FR 6 was advanced over a WIRE, EXC HANGE 260CM 10:03:09 3MMJ 260CM. 10:05:00 HR=45 bpm, PCPH=713/86 mmhg, SpO2=99.0 %, Pain=0, Renuka=10, Jones=2 After removing the current catheter a JR 4.0 INFINITI CATHETER FR 5 was advanced over a WIRE, E XCHANGE 260CM 10:07:11 3MMJ 260CM. 10:09:20 HR=49 bpm, HELL=417/83 mmhg, SpO2=96.0 %, Pain=0, Renuka=10, Jones=2 10:09:34 Catheter was removed A ART 3.5 GUIDE CATHETER RUNWAY FR 6 was advanced over a wire. OMNIPAQUE, 350 MG, 150ML 150ML w as used 10:11:04 for injections. 10:14:17 HR=45 bpm, KUGA=348/84 mmhg, SpO2=99.0 %, Resp=16 B/min, Pain=0, Renuka=10, Jones=2 10:17:53 Catheter was removed 10:19:18 HR=53 bpm, YGRY=931/87 mmhg, SpO2=98.0 %, Pain=0, Renuka=10, Jones=2 A JL 4.0 INFINITI CATHETER FR 6 was advanced over a wire. OMNIPAQUE, 350 MG, 150ML 150ML was us ed for :19:26 injections. 10:20:59 The RCA was injected and visualized at various angles. OMNIPAQUE, 350 MG, 150ML 150ML used . 10:23:26 Catheter was removed A XB 3.5 GUIDE CATHETER FR 6 was advanced over a wire. OMNIPAQUE, 350 MG, 150ML 150ML was used for 10:24:30 injections. 10:25:00 HR=48 bpm, TMAG=449/89 mmhg, QiE5=737.0 %, Pain=0, Renuak=10, Jones=2 10:26:22 6700 units HEPARIN given in lab by Florencia Nayak, DAVE in Right Antecubital via Peripheral IV. 10:28:26 A WIRE, ASAVONTRAVEL PROWATER 180CM 180CM was inserted via Fem Art (right). 10:29:18 Interventional wire has crossed the lesion 10:29:25 HR=47 bpm, ELAX=293/91 mmhg, PoC6=280.0 %, Pain=0, Renuka=10, Jones=2 10:29:43 An CATHETER, LAC [employer] EYE NIKOLSKI IMAGING was advanced through the lesion. Images saved onto IVUS hard drive 10:32:05 IVUS in progress using CATHETER, LAC [employer]UX EYE NIKOLSKI IMAGING Mean Luminal Area measured 3.1 10:33:36 Activated Clotting Time Drawn 10:35:09 HR=57 bpm, NBIA=356/98 mmhg, SpO2=98.0 %, Pain=0, Renuka=10, Jones=2 10:35:27 IVUS catheter removed 10:35:31 Wire removed 10:35:34 Catheter was removed 10:38:03 An injection in the Fem Art (right) was made through the SHEATH, FR6.5 PRELUDE 11CM FR 6.5. 10:38:32 ACT (Normal Range 90-180) = 267 10:39:21 HR=57 bpm, EMKX=139/95 mmhg, SpO2=98.0 %, Resp=16 B/min, Pain=0, Renuka=10, Jones=2 10:39:44 VASCADE, FR6 CLOSURE SYSTEM FR 6\\7 placement in the Fem Art (right) Radial Compression Device Used. 15 mLs of air placed in BAND, RADIAL COMPRESSION TR SHORT 24 24 CM. Affected 10:40:56 hand 98 % O2 saturation. 10:44:24 HR=56 bpm, GJFV=024/93 mmhg, SpO2=98.0 %, Resp=16 B/min, Pain=0, Renuka=10, Jones=2 10:49:21 HR=54 bpm, IRDI=163/98 mmhg, LjS9=890.0 %, Pain=0, Renuka=10, Jones=2 10:52:12 No case complications noted. 10:52:13 Cine recording checked. 10:52:23 A Left Heart Cath was performed. Assessment: Final Case, HR=57 BPM, Rhythm=Irregular, ATUX=775/98 mmhg, Chest Pain=0, Edema=None , Color=Normal, Skin = Warm, Dry Right Pulses: Erich Ped=2, Femoral=2, Radial=2 10:52:37 Left Pulses: Erich Ped=2, Femoral=2 Neurological: State=Alert, Ox3, TELLO Respiration: Resp=14 B/min, SoC3=293 %, O2=0 lpm 10:54:22 HR=63 bpm, QXRK=467/104 mmhg, SpO2=99.0 %, Pain=0, Renuka=10, Jones=2 10:57:12 Post deployment of Vascade pressure held. 10:59:21 HR=61 bpm, HMEF=151/104 mmhg, SpO2=97.0 %, Pain=0, Renuka=10, Jones=2 11:04:26 HR=62 bpm, BGQB=237/109 mmhg, SpO2=99.0 %, Pain=0, Renuka=10, Jones=2 11:10:10 HR=57 bpm, OFIK=409/101 mmhg, UsV6=588.0 %, Pain=0, Renuka=10, Jones=2 11:10:33 Vitals capture stopped. 11:12:21 Patient moved to stretcher End Study - Contrast Media Used In Study Contrast Total Opened (mL) Total Used (mL) Total Wasted (mL) Omnipaque 385 385 0 End Study - Maximum Contrast Load Max Contrast Load (mL) 480.5 End Study - Radiation Exposure Fluoro Time (minutes) 30.8 End Study - Patient Disposition Complications Transferred To Interventional Outcome No Telemetry Bed No attempt made
--- NOTE | 2017-11-14 11:56 | MA ---
cc: Danny Damon MD DATE: 11/14/2017 PROCEDURE: Left heart catheterization, very difficult selective coronary angiography, left ventriculography, intravascular ultrasound imaging of the left main and proximal left anterior descending. PROCEDURE NOTE: The patient was brought to the cardiac catheterization laboratory in a fasting state after having signed informed consent. The right radial region was prepped and draped as per policy and anesthetized with 1% lidocaine. Arterial access was obtained via the right radial artery and a 6-Ecuadorean sheath placed. Coronary arteriography was done using a Mcgrath catheter to engage the left main. Despite extensive attempts, we were unable to engage the right coronary via the right radial artery approach, so it was decided to perform the rest of the procedure via a right femoral artery approach. The right groin was anesthetized with 1% lidocaine. Arterial access was obtained via the right femoral artery and a 6-Ecuadorean sheath placed. Numerous catheters, including Progressive right, Eugenie right 4.0, Amplatz modified, Amplatz left 1.0, ART 3.5 guide, multipurpose were tried for engagement of the right coronary artery ostium. After aortic root injection, the right coronary was finally sub-selectively engaged with a Eugenie left 4.0 catheter. Left ventriculography was done using a standard 6-Ecuadorean pigtail. Intravascular ultrasound imaging was done as described below. There were no apparent immediate complications. A radial artery compression band was applied to his right wrist to achieve good hemostasis. His right femoral arteriotomy site was closed with VASCADE. HEMODYNAMIC DATA: Left ventricle 141 with an end-diastolic pressure of 15, aorta 146/83 with a mean of 109. There was no significant transvalvular aortic gradient on pullback of the pigtail catheter. CORONARY ARTERIOGRAPHY: The left main is a fairly large caliber vessel with 50% distal stenosis. The left anterior descending is also fairly large vessel giving rise to a large branching diagonal. The diagonal has up to 20% disease proximally. Right after the takeoff of the diagonal, the proximal LAD has somewhat eccentric up to 65% stenosis. The mid to distal LAD has minimal luminal irregularities. The left circumflex is a relatively small vessel with diffuse proximal disease resulting in up to 40% stenosis. It gives rise to 2 small obtuse marginals which are free of disease. As noted above, engagement of the right coronary was extremely difficult. This vessel appears to have a very high anterior takeoff and may arise from the left coronary cusp. The ostial to proximal portion of this vessel has eccentric up to 75% stenosis, more evident in the MATIAS view. The mid to distal right coronary has korpoie-zc-msyj diffuse disease. LEFT VENTRICULOGRAPHY: Contrast injection of the left ventricle reveals no segmental wall motion abnormalities. Ejection fraction is estimated at 60%. INTRAVASCULAR ULTRASOUND IMAGING: Adequate heparin was given to achieve an ACT of greater than 250 seconds. Using a 6-Ecuadorean XB 3.5 guiding catheter, the ostium of the left main was reengaged. Using a 0.014 Prowater guidewire, the disease in the left main and proximal LAD were crossed without difficulty and the tip of the wire positioned in the mid LAD. Intravascular ultrasound imaging of the proximal LAD reveals diffuse bxazuivm-yw-ppmudh disease. In the region of greatest disease, quantitative measurements show 80% area stenosis with 75% diameter stenosis. The left main also was measured quantitatively. The minimum lumen diameter of the left main is 2.9 mm. The left main lumen area is 5.9 sq mm. Based on these measurements, it was decided both the left main and proximal LAD disease were hemodynamically significant. The guidewire, ultrasound catheter, and guiding catheter were removed. There were no apparent immediate complications. CONCLUSIONS: 1. Severe left main, proximal left anterior descending, ostial to proximal right coronary disease. 2. Right dominant system. 3. Normal left ventricular function with estimated ejection fraction of 60%. 4. Status post intravascular ultrasound imaging of the left main and proximal left anterior descending, confirming the presence of hemodynamically significant disease. DISCUSSION: The patient will be referred for bypass surgery. Bypass grafts could be placed to the LAD, obtuse marginal, distal right coronary. MD RENEE Cowan/maria del rosario , 10:55 AM , 11:04 AM DARRON
[2017-11-14] MEDS: Nitroglycerin Drip Premix 50 MG/250 ML BOTTLE IV.CONT PRN (13:40)
[2017-11-14] MEDS ORDERED: Dextrose 50% in Water 50 ML Vial IV.PUSH PRN (13:44)
[2017-11-14] MEDS ORDERED: Insulin Regular (For Infusion) 100 UNIT in Sodium Chlor 0.9% Inj 99 ML IV.CONT PRN (13:44)
[2017-11-14] MEDS ORDERED: Sodium Chloride 0.9% Irr Bot 500 ML, ceFAZolin Inj 500 MG IRRIGATION SCH ×2 (13:45)
[2017-11-14] MEDS ORDERED: Chlorhexidine 4% Topical 120 APPLIC/120 ML Bottle TOPICAL SCH (13:45)
[2017-11-14] MEDS ORDERED: Sodium Chlor 0.9% Inj 77.5 ML, Papaverine Inj 60 MG, Nitroglycerin Inj 100 MCG, dilTIAZ... IRRIGATION SCH ×3 (13:45)
--- NOTE | 2017-11-14 13:56 | P.PNCV ---
- Note Subjective/Hospital Course: pt seen and evaluated, full note dictated sts data discussed with pt RISK SCORES About the STS Risk Calculator Procedure: CAB Only Risk of Mortality: 0.38% Morbidity or Mortality: 7.913% Long Length of Stay: 1.949% Short Length of Stay: 69.599% Permanent Stroke: 0.321% Prolonged Ventilation: 5.618% DSW Infection: 0.252% Renal Failure: 1.145% Reoperation: 3.049% for surgery on Tue Objective: Vital Signs - 24 hr 11/13/17 14:00 11/13/17 15:00 11/13/17 16:00 Temperature 97.9 F Pulse Rate 54 L 55 L 47 L Respiratory Rate 16 Blood Pressure 137/76 Pulse Oximetry 98 11/13/17 17:00 11/13/17 18:00 11/13/17 19:00 Temperature Pulse Rate 55 L 50 L 57 L Respiratory Rate Blood Pressure Pulse Oximetry 11/13/17 19:50 11/13/17 20:00 11/13/17 21:00 Temperature 98.6 F Pulse Rate 52 L 54 L Respiratory Rate 18 Blood Pressure 146/82 H Pulse Oximetry 96 96 11/13/17 22:00 11/13/17 23:00 11/13/17 23:39 Temperature 98.1 F Pulse Rate 60 48 L 53 L Respiratory Rate 18 Blood Pressure 137/82 Pulse Oximetry 96 11/14/17 00:00 11/14/17 01:00 11/14/17 02:00 Temperature Pulse Rate 48 L 44 L 46 L Respiratory Rate Blood Pressure Pulse Oximetry 11/14/17 03:00 11/14/17 04:00 11/14/17 05:00 Temperature 97.9 F Pulse Rate 46 L 47 L 48 L Respiratory Rate 18 Blood Pressure 148/64 H Pulse Oximetry 96 11/14/17 06:00 11/14/17 07:00 11/14/17 08:00 Temperature 97.4 F L Pulse Rate 41 L 46 L 53 L Respiratory Rate 16 Blood Pressure 143/96 H Pulse Oximetry 96 Labs: Laboratory Results - last 12 hr 11/14/17 11/14/17 04:36 04:36 APTT 49.0 H D Sodium 142 Potassium 3.8 Chloride 107 Carbon Dioxide 23.0 Anion Gap 12 BUN 9 Creatinine 1.06 Estimated GFR 74 L Random Glucose 98 Calcium 8.6 Result Diagrams: 11/13/17 03:40 11/14/17 04:36
[2017-11-14] MEDS ORDERED: ceFAZolin Inj 2,000 MG in Sodium Chlor 0.9% Inj 80 ML IV.SIG SCH (14:00)
[2017-11-14] MEDS: ALPRAZolam 0.25 MG Tablet PO PRN (15:40)
--- NOTE | 2017-11-14 17:17 | US ---
EXAM DATE: 11/14/2017 5:11 PM EDT AGE/SEX: 52 years / Male INDICATIONS: PreOp cardiac surgery. CLINICAL DATA: This is the patient's initial encounter. Patient reports that signs and symptoms have been present for 1 day and indicates a pain score of 0/10. MEDICAL/SURGICAL HISTORY: . Gastroesophageal reflux disease. Smoker. None. COMPARISON: No prior exams available for comparison. TECHNIQUE: Venous ultrasound of both lower extremities was performed from the inguinal ligament to t he proximal calf. Real-time, color Doppler and spectral tracing, compression and augmentation techni ques were used. FINDINGS: Right Leg: Normal compression of the deep venous system from the inguinal region to the proximal amelia f. No echogenic clot is seen. Normal response of the venous system to augmentation and respiration. L imited exam on the right leg secondary to recent cardiac catheterization Left Leg: Normal compression of the deep venous system from the inguinal region to the proximal calf . No echogenic clot is seen. Normal response of the venous system to augmentation and respiration. Other: None. CONCLUSION: 1. Negative for deep venous thrombosis Electronically signed by: Lex Leo MD 11/14/2017 5:16 PM EDT
--- NOTE | 2017-11-14 17:22 | US ---
EXAM DATE: 11/14/2017 5:17 PM EDT AGE/SEX: 52 years / Male INDICATIONS: PreOp cardiac surgery. CLINICAL DATA: This is the patient's initial encounter. Patient reports that signs and symptoms have been present for 1 day and indicates a pain score of 0/10. MEDICAL/SURGICAL HISTORY: . Gastroesophageal reflux disease. Smoker. None. [place] [facility] [place]14[place]. . MEASUREMENTS: RIGHT THIGH: Proximal:__Non-visualized Mid:__ Non-visualized Distal:__Non-visualized LEFT THIGH: Proximal:__4 mm Mid:__Non-visualized Distal:__Non-visualized RIGHT CALF: Proximal:__Non-visualized Mid:__Non-visualized Distal:__Non-visualized LEFT CALF: Proximal:__Non-visualized Mid:__Non-visualized Distal:__Non-visualized FINDINGS: The greater saphenous vein cannot be adequately visualized on either leg. CONCLUSION: 1. The greater saphenous vein cannot be adequately visualized on either leg. Electronically signed by: Lex Leo MD 11/14/2017 5:21 PM EDT
[2017-11-14 22:14] LABS: Bilirubin,Urine Negative (Negative); Clarity,Urine Clear (Clear); Color,Urine Straw (Yellw/Straw); Glucose,Urine (UA) Negative (Negative); Leukocyte Esterase,Urine Negative (Negative); Nitrite,Urine Negative (Negative); Specific Gravity,Urine 1.045 (1.002-1.035)
[2017-11-14] MEDS: Morphine Inj 4 MG/ML Vial IV.PUSH PRN (23:04)
--- NOTE | 2017-11-14 23:59 | XR ---
EXAM DATE: 11/14/2017 11:56 PM EDT AGE/SEX: 52 years / Male INDICATIONS: . Pre-op cardiac surgery. CLINICAL DATA: This is the patient's initial encounter. Patient reports that signs and symptoms have been present for 1 day and indicates a pain score of 0/10. MEDICAL/SURGICAL HISTORY: None. None. COMPARISON: [facility] – [place]ST 1V SINGLE AP, 11/11/2017. . FINDINGS: PA and lateral views of the chest demonstrate the lungs to be symmetrically aerated without evidence of mass, infiltrate or effusion. The cardiomediastinal contours are unremarkable. Osseous structures are intact. CONCLUSION: No evidence of acute cardiopulmonary disease. Electronically signed by: Samuel Montes MD 11/14/2017 11:58 PM EDT
[2017-11-15 06:40] LABS: INR 1.1 Ratio; Prothrombin Time 10.7 sec (9.8-11.6)
[2017-11-15] MEDS: Morphine Inj 4 MG/ML Vial IV.PUSH PRN (06:40)
[2017-11-15 07:04] LABS: Calcium 8.5 mg/dL (8.5-10.1); Carbon Dioxide 24.4 meq/L (21.0-32.0); Potassium 3.7 meq/L (3.5-5.1)
--- NOTE | 2017-11-15 07:28 | MB ---
cc: Miguel Corona MD DATE: 11/14/2017 HISTORY OF PRESENT ILLNESS: A 52-year-old male who presented to the emergency room on 11/11/2017 with chest pain. He is an avid biker, rides his bike approximately 15 miles at a time. He has been brought into the hospital for syncopal episodes. He exercises regularly. He just finished a bike ride during the heat, felt some general malaise, chest discomfort. That happened on and then on Tuesday he went on another bike ride and it happened again. He went into the 09-28 to try to get a drink and while leaning on a cooler he felt very lightheaded, attempted to sit down, but apparently lost consciousness causing him to fall to the floor. He tried to get up and felt dizzy again; however, it was extremely warm outside. He was sweating profusely. He was complaining of mid sternal chest discomfort. Says he has noticed this pain in the past when sometimes occurring into his bike ride, but is able to ride through the chest discomfort, eventually resolving. He has a history of exercise-induced asthma, has been using his albuterol more frequently. He is on no other medication. He underwent cardiac catheterization due to a non-STEMI, where he was found to have ejection fraction of 60%; the left main had a 50% distal stenosis, 65% proximal LAD. Conclusion: Severe left main, proximal left anterior descending ostial to proximal right coronary artery disease. Intravascular ultrasound was done showing a significant left main and proximal left anterior descending disease. We were consulted to evaluate for coronary artery bypass grafting. Patient's 2-D echo showed an ejection fraction of 60%-65%. The atrial septum was aneurysmal. There was mild mitral regurgitation, trace tricuspid regurgitation. PAST MEDICAL HISTORY: Patient's other past medical history significant for exercise-induced asthma, gastroesophageal reflux disease. PAST SURGICAL HISTORY: Surgeries include right index and long finger surgery for lacerations, pars plantar vitrectomy, membrane peel, right eye. ALLERGIES: NO KNOWN ALLERGIES. MEDICATIONS: Home medication only include albuterol inhaler p.r.n. Currently, he is on heparin, nitro, aspirin. No beta blockers with his heart rate in the 50s. SOCIAL HISTORY: Quit smoking in 2011; smoked from the age of 15, quit 2013, a half a pack per day. He does smoke a lot of marijuana. No alcohol. , has 1 stepchild. FAMILY HISTORY: Mother still alive at 82. Father committed suicide. REVIEW OF SYSTEMS: GENERAL: No night sweats, fever, heat or cold intolerance. SKIN: No psoriasis, itching or hives. HEENT: No blurred vision, hearing loss. RESPIRATORY: Positive for some recent shortness of breath. CARDIOVASCULAR: As above in the HPI. GASTROINTESTINAL: No diarrhea or vomiting. GENITOURINARY: No burning, frequency, urgency. CENTRAL NERVOUS SYSTEM: He has had history of presyncope, also possible heat related lightheadedness. ENDOCRINOLOGY: No diabetes and/or hypothyroidism. PHYSICAL EXAMINATION: VITAL SIGNS: Blood pressure 140/90, heart rate of 50, afebrile, O2 saturation 96% on room air. GENERAL: The patient is awake, alert, in no acute distress. HEENT: Head is normocephalic, atraumatic. Pupils equal and reactive. Oral mucosa pink, moist. NECK: Supple. No JVD. CARDIOVASCULAR: Sounds S1, S2. Regular rate and rhythm. No audible rubs, murmurs, or gallops. LUNGS: Clear to auscultation. No wheezes, rales or rhonchi. ABDOMEN: Soft, nontender. No masses or organomegaly. He has a very small hematoma to the right groin. They have used the right radial approach. EXTREMITIES: No cyanosis, clubbing, or edema. LABORATORY DATA: Lab work shows hemoglobin 14, hematocrit of 39, white cell count of 8.2, platelet count of 180. Sodium 142, potassium 3.8, BUN 9, creatinine 1.06. Triglycerides 155, cholesterol 256, LDL 172, troponin 4.16. Urine tox positive for cannabinoids. Urine unremarkable, stool negative for guaiac. RADIOLOGICAL EXAMS: The carotid ultrasound was unremarkable. CT head is unremarkable. Chest x-ray is unremarkable. EKG showed sinus bradycardia with some T-wave abnormality, concern for inferior ischemia. IMPRESSION AND PLAN: This is again, a 52-year-old male; multivessel coronary artery disease, ejection fraction of 60%. The cardiac films have been evaluated by Dr. Miguel Corona. Procedures, alternatives and risks discussed with the patient. The patient is agreeable to proceed; will undergo further testing including leg vein mapping, pulmonary function testing. In the meantime, he is to continue the heparin and nitro and plan will be for Tuesday11/16/2017. Dictated by ERICK Sutton MD DANISH Richardson/lebron/na , 02:04 PM , 02:15 PM
--- NOTE | 2017-11-15 08:37 | P.PNCA ---
Subjective Interval history: Denies angina, SOB, dizziness, palpitations. Physical Exam Vital signs: Vital Signs 11/14/17 12:00 11/14/17 13:00 11/14/17 14:00 Temperature Pulse Rate 52 L 50 L 54 L Respiratory Rate 16 Blood Pressure 175/99 H Pulse Oximetry 98 11/14/17 15:00 11/14/17 16:00 11/14/17 17:00 Temperature Pulse Rate 53 L 55 L 54 L Respiratory Rate 16 Blood Pressure 146/93 H Pulse Oximetry 97 11/14/17 17:30 11/14/17 18:00 11/14/17 19:00 Temperature Pulse Rate 55 L 58 L Respiratory Rate Blood Pressure Pulse Oximetry 97 11/14/17 20:00 11/14/17 21:00 11/14/17 22:00 Temperature Pulse Rate 86 96 H 82 Respiratory Rate Blood Pressure Pulse Oximetry 96 11/14/17 23:00 11/15/17 00:00 11/15/17 01:00 Temperature 98.8 F Pulse Rate 53 L 98 H 56 L Respiratory Rate 18 Blood Pressure 123/83 Pulse Oximetry 96 11/15/17 02:00 11/15/17 03:00 11/15/17 04:00 Temperature 98.5 F Pulse Rate 50 L 48 L 50 L Respiratory Rate 18 Blood Pressure 141/81 H Pulse Oximetry 95 11/15/17 05:00 11/15/17 06:00 11/15/17 07:00 Temperature Pulse Rate 62 66 53 L Respiratory Rate Blood Pressure Pulse Oximetry Intake & Output 11/14/17 11/15/17 11/15/17 18:59 06:59 18:59 Intake Total 1170 / 1170 2370 / 2370 Output Total 2875 / 2875 1700 / 1700 Balance -1705 / -1705 670 / 670 Weight 96.1 kg Intake: IV 10 / 10 1650 / 1650 Heparin/NS PF Inj 1,000 ML @ 0 10 / 10 mls/hr .ROUTE .STK-MED ONE Rx#: [id number] Heparin/D5W 25,000 U/250 mL 25, 250 / 250 000 unit In 250 ml @ Per Protocol IV.CONT TITRATE PRN Rx #:[id number] NS Inj 1,000 ML @ 100 mls/hr IV 1400 / 1400 .CONT .Q10H BLAYNE Rx#:[id number] Oral 360 / 360 720 / 720 Anesthesia Amount 800 / 800 Output: Urine 2875 / 2875 1700 / 1700 - Constitutional no acute distress - Routine Neck Exam Absent: JVD - Routine Respiratory Exam Present: CTA bilaterally - Routine Cardiovascular Exam Present: RRR, S1, S2. Absent: murmur, gallop - Routine Abdominal Exam Present: soft, normoactive bowel sounds. Absent: tenderness, organomegaly - Routine Extremities Exam Absent: cyanosis, clubbing, edema - Urinary Catheter Management Indwelling Urethral Catheter Cath placed during this visit: no Assessment and Plan - Assessment (1) NSTEMI (non-ST elevated myocardial infarction) Code(s): I21.4 - Non-ST elevation (NSTEMI) myocardial infarction Status: Acute Plan: Stable overnight. Cath shows severe left main, severe proximal LAD and ostial to proximal RCA disease, EF 60%. Continue SEPIDEH-I, no beta william with relatively low HR's. Very suboptimal lipid profile; continue high dose atorvastatin, recheck labs in 8 weeks. For CABG tomorrow. Will f/u PRN. - Plan Code Status: full code Discussed Condition With: patient and , at length
--- NOTE | 2017-11-15 10:13 | P.PNCV ---
- Note Subjective/Hospital Course: 52-year-old male who presented to the emergency room on 11/11/2017 with chest pain. He is an avid biker, rides his bike approximately 15 miles at a time. He has been brought into the hospital for syncopal episodes. He exercises regularly. He just finished a bike ride during the heat, felt some general malaise, chest discomfort. That happened on and then on Tuesday he went on another bike ride and it happened again. He went into the 09-28 to try to get a drink and while leaning on a cooler he felt very lightheaded, attempted to sit down, but apparently lost consciousness causing him to fall to the floor. He tried to get up and felt dizzy again; however, it was extremely warm outside. He was sweating profusely. He was complaining of mid sternal chest discomfort. Says he has noticed this pain in the past when sometimes occurring into his bike ride, but is able to ride through the chest discomfort, eventually resolving. He has a history of exercise-induced asthma, has been using his albuterol more frequently. He is on no other medication. He underwent cardiac catheterization due to a non-STEMI, where he was found to have ejection fraction of 60%; the left main had a 50% distal stenosis, 65% proximal LAD. Conclusion: Severe left main, proximal left anterior descending ostial to proximal right coronary artery disease. Intravascular ultrasound was done showing a significant left main and proximal left anterior descending disease. We were consulted to evaluate for coronary artery bypass grafting. Patient's 2-D echo showed an ejection fraction of 60%-65%. The atrial septum was aneurysmal. There was mild mitral regurgitation, trace tricuspid regurgitation. PAST MEDICAL HISTORY: exercise-induced asthma, gastroesophageal reflux disease 11/15 pt had some mild pain last night relieved with morphine , on NTG gtt at 5 mcq carotid US oK no dvt lower legs vein mapping 4mm left proximal thigh only / will discuss with Dr Corona Objective: Vital Signs - 24 hr 11/14/17 12:00 11/14/17 13:00 11/14/17 14:00 Temperature Pulse Rate 52 L 50 L 54 L Respiratory Rate 16 Blood Pressure 175/99 H Pulse Oximetry 98 11/14/17 15:00 11/14/17 16:00 11/14/17 17:00 Temperature Pulse Rate 53 L 55 L 54 L Respiratory Rate 16 Blood Pressure 146/93 H Pulse Oximetry 97 11/14/17 17:30 11/14/17 18:00 11/14/17 19:00 Temperature Pulse Rate 55 L 58 L Respiratory Rate Blood Pressure Pulse Oximetry 97 11/14/17 20:00 11/14/17 21:00 11/14/17 22:00 Temperature Pulse Rate 86 96 H 82 Respiratory Rate Blood Pressure Pulse Oximetry 96 11/14/17 23:00 11/15/17 00:00 11/15/17 01:00 Temperature 98.8 F Pulse Rate 53 L 98 H 56 L Respiratory Rate 18 Blood Pressure 123/83 Pulse Oximetry 96 11/15/17 02:00 11/15/17 03:00 11/15/17 04:00 Temperature 98.5 F Pulse Rate 50 L 48 L 50 L Respiratory Rate 18 Blood Pressure 141/81 H Pulse Oximetry 95 11/15/17 05:00 11/15/17 06:00 11/15/17 07:00 Temperature Pulse Rate 62 66 53 L Respiratory Rate Blood Pressure Pulse Oximetry 11/15/17 08:00 Temperature 97.5 F L Pulse Rate 56 L Respiratory Rate 16 Blood Pressure 151/85 H Pulse Oximetry 98 GENERAL: SKIN: Warm and dry. HEAD: Normocephalic. EYES: No scleral icterus. No injection or drainage. NECK: Supple, trachea midline. No JVD or lymphadenopathy. CARDIOVASCULAR: Regular rate and rhythm without murmurs, gallops, or rubs. RESPIRATORY: Breath sounds equal bilaterally. No accessory muscle use. GASTROINTESTINAL: Abdomen soft, non-tender, nondistended. MUSCULOSKELETAL: No cyanosis, or edema. BACK: Nontender without obvious deformity. No CVA tenderness. Labs: Laboratory Results - last 12 hr 11/14/17 11/15/17 11/15/17 19:00 05:35 05:35 PT 10.7 INR 1.1 Sodium Potassium Chloride Carbon Dioxide Anion Gap BUN Creatinine Estimated GFR Random Glucose Calcium Urine Color Straw Urine Clarity Clear Urine pH 6.0 Ur Specific [place] 1.045 H Urine Protein Negative Urine Glucose (UA) Negative Urine Ketones Negative Urine Occult Blood Negative Urine Nitrate Negative Urine Bilirubin Negative Urine Urobilinogen Less than 2 Ur Leukocyte Esterase Negative Urine WBC Less than 1 Micro UA Comment Culture not ind Ur Microscopic Review Not Reportable Urine Culture Comments Culture not ind Blood Type O Positive Blood Type Recheck Required Antibody Screen Negative MTS Gel Crossmatch See Detail 11/15/17 05:35 PT INR Sodium 143 Potassium 3.7 Chloride 107 Carbon Dioxide 24.4 Anion Gap 12 BUN 9 Creatinine 1.08 Estimated GFR 72 L Random Glucose 106 Calcium 8.5 Urine Color Urine Clarity Urine pH Ur Specific [place] Urine Protein Urine Glucose (UA) Urine Ketones Urine Occult Blood Urine Nitrate Urine Bilirubin Urine Urobilinogen Ur Leukocyte Esterase Urine WBC Micro UA Comment Ur Microscopic Review Urine Culture Comments Blood Type Blood Type Recheck Antibody Screen MTS Gel Crossmatch Result Diagrams: 11/13/17 03:40 11/15/17 05:35 Telemetry: NSR - Plan (2) NSTEMI (non-ST elevated myocardial infarction) Plan: on ASA, statin , No BB with bradycardia SEPIDEH held for surgery (6) PVD (peripheral vascular disease) with claudication Plan: may need f/u with vascular surgery as outpt
--- NOTE | 2017-11-15 11:02 | P.PN ---
Subjective Interval history: Follow-up non-ST elevation [place] November 12, 2017-patient seen and examined, continued to complain of substernal chest pain. Poison control was called overnight secondary to possible Aggrastat toxicity, however platelet count remains stable November 13, 2017-patient seen and examined; complaint of chest discomfort for without any shortness of breath. Patient's quite anxious. Stated he did not have a good night sleep. November 14, 2017-patient seen and examined, still with chest discomfort. Currently n.p.o. and heading for left heart catheterization. Family members by the bedside November 15, 2017-patient seen and examined, denies any chest pain, shortness of breath, heart palpitation. Plan for CABG tomorrow November 16, 2017 Physical Exam Vital signs: Vital Signs 11/14/17 12:00 11/14/17 13:00 11/14/17 14:00 Temperature Pulse Rate 52 L 50 L 54 L Respiratory Rate 16 Blood Pressure 175/99 H Pulse Oximetry 98 11/14/17 15:00 11/14/17 16:00 11/14/17 17:00 Temperature Pulse Rate 53 L 55 L 54 L Respiratory Rate 16 Blood Pressure 146/93 H Pulse Oximetry 97 11/14/17 17:30 11/14/17 18:00 11/14/17 19:00 Temperature Pulse Rate 55 L 58 L Respiratory Rate Blood Pressure Pulse Oximetry 97 11/14/17 20:00 11/14/17 21:00 11/14/17 22:00 Temperature Pulse Rate 86 96 H 82 Respiratory Rate Blood Pressure Pulse Oximetry 96 11/14/17 23:00 11/15/17 00:00 11/15/17 01:00 Temperature 98.8 F Pulse Rate 53 L 98 H 56 L Respiratory Rate 18 Blood Pressure 123/83 Pulse Oximetry 96 11/15/17 02:00 11/15/17 03:00 11/15/17 04:00 Temperature 98.5 F Pulse Rate 50 L 48 L 50 L Respiratory Rate 18 Blood Pressure 141/81 H Pulse Oximetry 95 11/15/17 05:00 11/15/17 06:00 11/15/17 07:00 Temperature Pulse Rate 62 66 53 L Respiratory Rate Blood Pressure Pulse Oximetry 11/15/17 08:00 11/15/17 09:00 11/15/17 10:00 Temperature 97.5 F L Pulse Rate 54 L 66 60 Respiratory Rate 16 Blood Pressure 151/85 H Pulse Oximetry 98 11/15/17 10:24 Temperature Pulse Rate Respiratory Rate Blood Pressure Pulse Oximetry 94 L Intake & Output 11/14/17 11/15/17 11/15/17 18:59 06:59 18:59 Intake Total 1170 / 1170 2370 / 2370 Output Total 2875 / 2875 1700 / 1700 Balance -1705 / -1705 670 / 670 Weight 96.1 kg Intake: IV 10 / 10 1650 / 1650 Heparin/NS PF Inj 1,000 ML @ 0 10 / 10 mls/hr .ROUTE .STK-MED ONE Rx#: [id number] Heparin/D5W 25,000 U/250 mL 25, 250 / 250 000 unit In 250 ml @ Per Protocol IV.CONT TITRATE PRN Rx #:[id number] NS Inj 1,000 ML @ 100 mls/hr IV 1400 / 1400 .CONT .Q10H BLAYNE Rx#:[id number] Oral 360 / 360 720 / 720 Anesthesia Amount 800 / 800 Output: Urine 2875 / 2875 1700 / 1700 Narrative: GENERAL: NAD SKIN: Warm and dry. HEAD: Normocephalic. EYES: No scleral icterus. No injection or drainage. NECK: Supple, trachea midline. No JVD or lymphadenopathy. CARDIOVASCULAR: Regular rate and rhythm without murmurs, gallops, or rubs. RESPIRATORY: Breath sounds equal bilaterally. No accessory muscle use. GASTROINTESTINAL: Abdomen soft, non-tender, nondistended. MUSCULOSKELETAL: No cyanosis, or edema. BACK: Nontender without obvious deformity. No CVA tenderness. - Urinary Catheter Management Indwelling Urethral Catheter Cath placed during this visit: no Results - Labs CBC & Chem 7: 11/13/17 03:40 11/15/17 05:35 Laboratory Results - last 24 hr 11/14/17 11/14/17 11/15/17 15:40 19:00 05:35 PT INR Sodium Potassium Chloride Carbon Dioxide Anion Gap BUN Creatinine Estimated GFR Random Glucose Calcium Urine Color Straw Urine Clarity Clear Urine pH 6.0 Ur Specific [place] 1.045 H Urine Protein Negative Urine Glucose (UA) Negative Urine Ketones Negative Urine Occult Blood Negative Urine Nitrate Negative Urine Bilirubin Negative Urine Urobilinogen Less than 2 Ur Leukocyte Esterase Negative Urine WBC Less than 1 Micro UA Comment Culture not ind Ur Microscopic Review Not Reportable Urine Culture Comments Culture not ind Nasal Screen MRSA (PCR) Not detected Blood Type O Positive Blood Type Recheck Required Antibody Screen Negative MTS Gel Crossmatch See Detail 11/15/17 11/15/17 05:35 05:35 PT 10.7 INR 1.1 Sodium 143 Potassium 3.7 Chloride 107 Carbon Dioxide 24.4 Anion Gap 12 BUN 9 Creatinine 1.08 Estimated GFR 72 L Random Glucose 106 Calcium 8.5 Urine Color Urine Clarity Urine pH Ur Specific [place] Urine Protein Urine Glucose (UA) Urine Ketones Urine Occult Blood Urine Nitrate Urine Bilirubin Urine Urobilinogen Ur Leukocyte Esterase Urine WBC Micro UA Comment Ur Microscopic Review Urine Culture Comments Nasal Screen MRSA (PCR) Blood Type Blood Type Recheck Antibody Screen MTS Gel Crossmatch - Imaging Impressions Chest X-Ray 11/14/17 13:44 CONCLUSION: No evidence of acute cardiopulmonary disease. Lower Extremity Ultrasound 11/14/17 13:44 CONCLUSION: 1. The greater saphenous vein cannot be adequately visualized on either leg. Venous Doppler Study 11/14/17 13:44 CONCLUSION: 1. Negative for deep venous thrombosis Assessment and Plan - Assessment (1) Chest pain Code(s): R07.9 - Chest pain, unspecified Status: Acute (2) NSTEMI (non-ST elevated myocardial infarction) Code(s): I21.4 - Non-ST elevation (NSTEMI) myocardial infarction Status: Acute (3) Elevated troponin I level Code(s): R74.8 - Abnormal levels of other serum enzymes Status: Acute (4) GERD (gastroesophageal reflux disease) Code(s): K21.9 - Gastro-esophageal reflux disease without esophagitis Status: Acute (5) Nicotine dependence Code(s): F17.200 - Nicotine dependence, unspecified, uncomplicated Status: Acute - Plan 52-year-old man with Non-ST elevation [place] Currently on heparin and nitroglycerin drips beta-william not initiated due to bradycardia Continue aspirin, SEPIDEH inhibitor currently on hold pending surgery in a.m. Bilateral carotid ultrasound stable s/p left heart catheterization Tuesday, November 14, 2017 with finding of severe three-vessel disease Appreciate input from cardiology Severe three-vessel disease Appreciate input from cardiothoracic surgery and plan for CABG tomorrow November 16, 2017 Continue with aspirin, statin Beta-william on hold due to bradycardia SEPIDEH inhibitor on hold due to planned for CABG tomorrow Syncope Echocardiogram pending Bilateral carotid ultrasound without any evidence of stenosis Follow on telemetry Gastroesophageal reflux disease Continue Protonix 40 mg daily DVT prophylaxis Heparin
[2017-11-15] MEDS: Sod Chloride 0.9% Inj 1,000 ML IV.CONT SCH ×2 (11:44→19:06)
[2017-11-15 12:44] LABS: Hemoglobin A1c 6.1 % (4.3-6.0)
[2017-11-15] MEDS ORDERED: Sod Phosphate/Sod Biphosphate (Adult) Enema 133 ML Bottle RECTAL PRN (14:36)
[2017-11-15] MEDS ORDERED: Bisacodyl 10 MG Supp RECTAL ONE (15:00)
[2017-11-15] MEDS ORDERED: Chlorhexidine Gluconate 2% 1 Pack (2 Cloths) TOPICAL SCH (22:15)
[2017-11-16] MEDS: Sod Chloride 0.9% Inj 1,000 ML IV.CONT SCH ×2 (05:34→17:16)
[2017-11-16] MEDS ORDERED: Heparin - SQ 10,000 UNITS/ML Vial ONE (06:12)
[2017-11-16] MEDS ORDERED: fentaNYL Citrate Inj 250 MCG/5 ML Ampul ONE ×3 (10:06→12:03)
[2017-11-16] MEDS ORDERED: Potassium Chloride Inj 40 MEQ/20 ML Vial ONE (10:46)
[2017-11-16] MEDS ORDERED: Albumin Human 5% Inj 250 ML IV.SIG PRN (11:05)
[2017-11-16] MEDS ORDERED: Insulin Regular (For Infusion) 100 UNIT in Sodium Chlor 0.9% Inj 99 ML IV.CONT PRN (11:05)
[2017-11-16] MEDS ORDERED: Morphine Sulfate Inj 2 MG/ML Vial IV.PUSH PRN (11:05)
[2017-11-16] MEDS ORDERED: Metoprolol Inj 5 MG/5 ML Vial IV.PUSH PRN (11:05)
[2017-11-16] MEDS ORDERED: Acetaminophen 325 MG Tablet PO PRN (11:05)
[2017-11-16] MEDS ORDERED: Acetaminophen 650 MG Supp RECTAL PRN (11:05)
[2017-11-16] MEDS ORDERED: RESP: Racemic Epinephrine 2.25% 0.5 ML Neb NEB PRN (11:05)
[2017-11-16] MEDS ORDERED: Dextrose 50% in Water 50 ML Vial IV.PUSH PRN (11:05)
[2017-11-16] MEDS ORDERED: Dexmedetomidine Inj 200 MCG in Sodium Chlor 0.9% Inj 48 ML IV.CONT PRN (11:05)
[2017-11-16] MEDS ORDERED: Clevidipine Inj 25 MG/50 ML VIAL IV.CONT PRN (11:05)
[2017-11-16] MEDS ORDERED: Potassium Chlor 20 mEq Premix 20 MEQ/100 ML PIGGYBACK IV.SIG PRN ×2 (11:05)
[2017-11-16] MEDS ORDERED: Magnesium Sulfate Inj 2 GM in Sodium Chlor 0.9% Inj 96 ML IV.SIG PRN ×4 (11:05)
[2017-11-16] MEDS ORDERED: Post-op Orders (for Pharmacy) OTHER STA (11:05)
[2017-11-16] MEDS ORDERED: Calcium Chloride Inj 1 GM/10 ML Syringe IV.PUSH PRN (11:05)
--- NOTE | 2017-11-16 11:13 | P.OP ---
Date of procedure: 11/16/17 Anesthesia: SABRINA Surgeon: Miguel Corona MD Operation and Findings: PREPROCEDURE DIAGNOSES 1. Severe Multi Vessel Coronary Artery Disease. 2. Acute myocardial infarction 3. Left main stenosis POSTPROCEDURE DIAGNOSES Same SURGICAL PROCEDURE 1. Urgent Off-pump Coronary Artery Bypass Grafting x 3 with Left Internal Mammary Artery (PEDRAZA) to Left Anterior Descending (LAD), reverse saphenous vein graft to diagonal 1 branch of the LAD, reverse saphenous vein graft to the Right Coronary artery 2. Left leg Endoscopic Vein Proctor 3. Intraoperative Vein Mapping. SURGEON Miguel Corona MD ELECTRIFICATION ADVISER ARDEN Chua ANESTHESIA General endotracheal TANK CAR CLEANER WESLEY Michael MD PREPARATION ChloraPrep. COUNTS Needle, sponge, and instrument counts were correct. DRAINS Two 32-Belarusian mediastinal tubes. COMPLICATIONS None. INDICATIONS FOR PROCEDURE The patient is a 52-year-old presenting with chest pain. Patient was noted to have multi-vessel coronary artery disease with left main stenosis. The patient is being brought to the operating room for surgical revascularization therapy. PROCEDURE Patient was brought to the operating room and placed supine on the OR table. Following the induction of adequate general endotracheal anesthesia and placement of appropriate monitoring devices, intraoperative vein mapping was performed which revealed good-caliber conduit in bilateral lower extremities. The patient was then prepped and draped in standard sterile fashion. Next, 2500 units of intravenous heparin was given. The left greater saphenous vein was harvested endoscopically. This appeared to be a useable-caliber conduit. Simultaneously, a median sternotomy was performed and the left internal mammary artery dissected free off the posterior sternal table. The patient was systemically heparinized and anticoagulation monitored by serial ACT measurements. The internal mammary artery had excellent pulsatile flow in it and was a good-caliber conduit. The pericardium was then divided in the midline , the cradle created and targets analyzed. At this point, all anastomoses were performed in a beating-heart fashion using the Maquet stabilizing system. The left internal mammary artery was anastomosed to the mid LAD (2.25 mm) in an end- to-side fashion using 7-0 Prolene. Segment of saphenous vein graft was then anastomosed to the D1 (2.25 mm) in an end-to-side fashion using 7-0 Prolene. The final segment was anastomosed to the RCA 2.5 mm) in an end-to-side fashion using 7-0 Prolene. The proximal anastomoses were then constructed to the ascending aorta in a running manner using 6-0 Prolene. All anastomotic sites were inspected and appeared to be hemostatic and patent. Protamine solution was given. Strict hemostasis was assured. The closure was undertaken. 2 chest tubes were placed. The pericardium was reapproximated in the midline. The sternum was approximated using sternal wires. The muscular and fascial layer were then closed in 3 layers. The endoscopic vein harvest site was closed in 2 layers. The patient tolerated the procedure well and was transferred to CVICU in stable condition.
[2017-11-16] MEDS ORDERED: Clevidipine Inj 25 MG/50 ML VIAL ONE (11:54)
[2017-11-16] MEDS ORDERED: fentaNYL Citrate Inj 100 MCG/2 ML Ampul ONE (11:54)
[2017-11-16] MEDS: Calcium Chloride Inj 1 GM in Sodium Chlor 0.9% Inj 100 ML IV.SIG PRN ×2 (13:01→14:43)
--- NOTE | 2017-11-16 13:05 | XR ---
EXAM DATE: 11/16/2017 12:01 PM EDT AGE/SEX: 52 years / Male INDICATIONS: Post op CABG. CLINICAL DATA: This is the patient's initial encounter. Patient reports that signs and symptoms have been present for 1 day and indicates a pain score of Nonresponsive. MEDICAL/SURGICAL HISTORY: Gastroesophageal reflux disease. CABG. COMPARISON: [facility] – [place], CHEST 2V PA&LAT, 11/14/2017. . FINDINGS: Endotracheal tube tip inferior margin of the clavicles. Left-sided chest tube is noted. Left midlung atelectatic changes are seen. Right jugular line is also present, the distal tip not well visualized. Enteric tube courses beneath the diaphragm.. Median sternotomy wires are noted. CONCLUSION: Postoperative changes are seen. Left midlung parenchymal opacity felt to represent an area of atelect asis Electronically signed by: David Hagan MD 11/16/2017 1:04 PM EDT
[2017-11-16] MEDS: fentaNYL Citrate Inj 100 MCG/2 ML Ampul IV.PUSH PRN ×2 (13:40→17:36)
[2017-11-16] MEDS: Ketorolac Inj 30 MG/ML (IVP) Vial IV.PUSH PRN ×2 (14:03→18:42)
[2017-11-16] MEDS: Potassium Chlor 20 mEq Premix 20 MEQ/100 ML PIGGYBACK IV.SIG PRN ×3 (14:43→21:44)
[2017-11-16] MEDS ORDERED: Dexmedetomidine Inj 200 MCG/2 ML Vial IV.CONT ONE (16:29)
[2017-11-16] MEDS ORDERED: Nitroglycerin Drip Premix 50 MG/250 ML BOTTLE IV.SIG ONE (16:29)
[2017-11-16] MEDS ORDERED: Heparin - SQ 10,000 UNITS/ML Vial SQ ONE (16:29)
[2017-11-16] MEDS ORDERED: Protamine Sulfate Inj 250 MG/25 ML Vial IV.CONT ONE (16:29)
[2017-11-16] MEDS ORDERED: Dextrose 5% in Water Inj 100 ML IV.SIG ONE (16:29)
[2017-11-16] MEDS ORDERED: Glycopyrrolate 0.2 MG/ML Vial IV.PUSH ONE (16:29)
[2017-11-16] MEDS ORDERED: Aminocaproic Acid Inj 5,000 MG/20 ML Vial IV.CONT ONE (16:29)
[2017-11-16] MEDS ORDERED: Artificial Tears Opth Oint 3.5 GM Tube EACH EYE ONE (16:29)
[2017-11-16] MEDS ORDERED: Phenylephrine/NS 1000 MCG/10ML Syringe IV.PUSH ONE (16:29)
[2017-11-16] MEDS: ceFAZolin 2 GM Premix Inj 2 GM/100 ML BAG IV.SIG SCH ×2 (17:36→23:53)
[2017-11-16] MEDS: Amiodarone 200 MG Tablet PO SCH (21:40)
[2017-11-17] MEDS: Sod Chloride 0.9% Inj 1,000 ML IV.CONT SCH ×2 (01:15→18:07)
[2017-11-17] MEDS: Ketorolac Inj 30 MG/ML (IVP) Vial IV.PUSH PRN ×2 (03:01→08:43)
--- NOTE | 2017-11-17 03:52 | XR ---
EXAM DATE: 11/17/2017 3:38 AM EDT AGE/SEX: 52 years / Male INDICATIONS: Short of breath. CLINICAL DATA: This is the patient's subsequent encounter. Patient reports that signs and symptoms h ave been present for 4 - 6 days and indicates a pain score of 0/10. MEDICAL/SURGICAL HISTORY: Gastroesophageal reflux disease. CABG. COMPARISON: [facility] [place] 1V SINGLE AP, 11/16/2017. . FINDINGS: Bibasilar parenchymal consolidation present, new on the right and worsening on the left. No definite pleural effusion. No pneumothorax. Changes of recent median sternotomy again noted. Patient has been extubated and the nasogastric tube has been removed. Mediastinal drain, left chest tube and right IJ line with tip in the right atrium r emain in place. CONCLUSION: 1. Left greater than right basilar consolidation, worse/new. 2. Endotracheal tube and nasogastric tube out. Other lines and tubes unchanged, including a left sandra st tube. No pneumothorax seen. Electronically signed by: Samuel Montes MD 11/17/2017 3:50 AM EDT
[2017-11-17 06:13] LABS: Hematocrit 33.7 % (39.0-51.0); Hemoglobin 11.9 gm/dL (13.0-17.0); Mean Corpuscular HGB Conc 35.4 % (32.0-36.0); Mean Corpuscular Hemoglobin 31.4 pg (27.0-34.0); Mean Corpuscular Volume 88.8 fL (80.0-100.0); Mean Platelet Volume 8.1 fL (7.0-11.0); Platelet Count 189 th/mm3 (150-450); Red Cell Distribution Width 12.9 % (11.6-17.2); White Blood Count 13.9 th/mm3 (4.0-11.0)
[2017-11-17 06:38] LABS: Calcium 8.5 mg/dL (8.5-10.1); Carbon Dioxide 23.6 meq/L (21.0-32.0); Potassium 3.9 meq/L (3.5-5.1)
[2017-11-17] MEDS ORDERED: Bisacodyl 10 MG Supp RECTAL PRN (08:46)
[2017-11-17] MEDS ORDERED: Dextrose 50% in Water 50 ML Vial IV.PUSH PRN (08:46)
--- NOTE | 2017-11-17 09:36 | P.PNCV ---
- Note Subjective/Hospital Course: 52-year-old male who presented to the emergency room on 11/11/2017 with chest pain. He is an avid biker, rides his bike approximately 15 miles at a time. He has been brought into the hospital for syncopal episodes. He exercises regularly. He just finished a bike ride during the heat, felt some general malaise, chest discomfort. That happened on and then on Tuesday he went on another bike ride and it happened again. He went into the 09-28 to try to get a drink and while leaning on a cooler he felt very lightheaded, attempted to sit down, but apparently lost consciousness causing him to fall to the floor. He tried to get up and felt dizzy again; however, it was extremely warm outside. He was sweating profusely. He was complaining of mid sternal chest discomfort. Says he has noticed this pain in the past when sometimes occurring into his bike ride, but is able to ride through the chest discomfort, eventually resolving. He has a history of exercise-induced asthma, has been using his albuterol more frequently. He is on no other medication. He underwent cardiac catheterization due to a non-STEMI, where he was found to have ejection fraction of 60%; the left main had a 50% distal stenosis, 65% proximal LAD. Conclusion: Severe left main, proximal left anterior descending ostial to proximal right coronary artery disease. Intravascular ultrasound was done showing a significant left main and proximal left anterior descending disease. We were consulted to evaluate for coronary artery bypass grafting. Patient's 2-D echo showed an ejection fraction of 60%-65%. The atrial septum was aneurysmal. There was mild mitral regurgitation, trace tricuspid regurgitation. PAST MEDICAL HISTORY: exercise-induced asthma, gastroesophageal reflux disease 11/15 pt had some mild pain last night relieved with morphine , on NTG gtt at 5 mcq carotid US oK no dvt lower legs vein mapping 4mm left proximal thigh only / will discuss with Dr Corona 11/16 surgery:1. Urgent Off-pump Coronary Artery Bypass Grafting x 3 with Left Internal Mammary Artery (PEDRAZA) to Left Anterior Descending (LAD), reverse saphenous vein graft to diagonal 1 branch of the LAD, reverse saphenous vein graft to the Right Coronary artery L EVH extubated after surgery crystalloid 2400cc , 200cc EBL 11/17 off all IV gtts start low dose BB , norvasc for BP very painful , pain meds adjusted leave chest tubes in , OOB ambulate aggressive pulm toileting transfer to stepdown Objective: Vital Signs - 24 hr 11/16/17 11:35 11/16/17 12:40 11/16/17 13:04 Temperature 97.6 F 97.6 F Pulse Rate 70 Respiratory Rate 10 L 15 16 Blood Pressure 131/60 Pulse Oximetry 98 99 99 11/16/17 13:30 11/16/17 13:55 11/16/17 14:00 Temperature 97.6 F Pulse Rate Respiratory Rate Blood Pressure Pulse Oximetry 97 98 11/16/17 15:00 11/16/17 17:15 11/16/17 19:00 Temperature 98.6 F 97.6 F Pulse Rate 60 65 63 Respiratory Rate 16 20 16 Blood Pressure 124/53 L 113/97 H Pulse Oximetry 98 99 11/16/17 20:30 11/16/17 21:24 11/16/17 22:05 Temperature Pulse Rate 62 Respiratory Rate 20 16 Blood Pressure Pulse Oximetry 99 11/16/17 23:00 11/16/17 23:09 11/17/17 03:00 Temperature 98.2 F 98.7 F Pulse Rate 64 64 Respiratory Rate 16 16 Blood Pressure 135/81 131/83 Pulse Oximetry 98 98 98 11/17/17 04:22 11/17/17 07:00 11/17/17 08:32 Temperature 98.5 F Pulse Rate 72 72 84 Respiratory Rate 22 18 18 Blood Pressure 133/78 Pulse Oximetry 98 99 GENERAL: A&O x 3 SKIN: Warm and dry. Prevena dressing to chest, sepideh wrap to left leg HEAD: Normocephalic. EYES: No scleral icterus. No injection or drainage. NECK: Supple, trachea midline. No JVD or lymphadenopathy. CARDIOVASCULAR: Regular rate and rhythm without murmurs, gallops, or rubs. + rub RESPIRATORY: Breath sounds equal bilaterally. No accessory muscle use. diminished in bases, chest tube to wall suction, no air leak GASTROINTESTINAL: Abdomen soft, non-tender, nondistended. MUSCULOSKELETAL: No cyanosis, or edema. BACK: Nontender without obvious deformity. No CVA tenderness. Labs: Laboratory Results - last 12 hr 11/15/17 11/16/17 11/16/17 05:35 22:08 23:50 WBC RBC Hgb Hct MCV MCH MCHC RDW Plt Count MPV Sodium Potassium Chloride Carbon Dioxide Anion Gap BUN Creatinine Estimated GFR POC Glucose 132 H 136 H Random Glucose Calcium Magnesium Blood Type O Positive Blood Type Recheck Required Antibody Screen Negative MTS Gel Crossmatch See Detail 11/17/17 11/17/17 11/17/17 03:07 04:59 05:40 WBC 13.9 H RBC 3.80 L Hgb 11.9 L Hct 33.7 L MCV 88.8 MCH 31.4 MCHC 35.4 RDW 12.9 Plt Count 189 MPV 8.1 Sodium Potassium Chloride Carbon Dioxide Anion Gap BUN Creatinine Estimated GFR POC Glucose 88 159 H Random Glucose Calcium Magnesium Blood Type Blood Type Recheck Antibody Screen MTS Gel Crossmatch 11/17/17 11/17/17 11/17/17 05:40 05:47 07:38 WBC RBC Hgb Hct MCV MCH MCHC RDW Plt Count MPV Sodium 139 Potassium 3.9 Chloride 107 Carbon Dioxide 23.6 Anion Gap 8 BUN 10 Creatinine 1.29 Estimated GFR 59 L POC Glucose 152 H 89 Random Glucose 136 H Calcium 8.5 Magnesium 2.0 Blood Type Blood Type Recheck Antibody Screen MTS Gel Crossmatch Result Diagrams: 11/17/17 05:40 11/17/17 05:40 Telemetry: NSR - Plan (2) NSTEMI (non-ST elevated myocardial infarction) Plan: on ASA, statin , No BB with bradycardia SEPIDEH held for surgery (6) PVD (peripheral vascular disease) with claudication Plan: may need f/u with vascular surgery as outpt ASA, statin, BB , plavix, amiodarone OOB ambulate, pain control pulm toileting nebs ezpap
[2017-11-17] MEDS: fentaNYL Citrate Inj 100 MCG/2 ML Ampul IV.PUSH PRN ×3 (10:12→21:49)
--- NOTE | 2017-11-17 10:21 | P.PN ---
Subjective Interval history: Follow-up non-ST elevation ND/ MVD s/p CABGx3 November 17, 2017-patient seen and examined, still in pain, +SOB Physical Exam Vital signs: Vital Signs 11/16/17 11:35 11/16/17 12:40 11/16/17 13:04 Temperature 97.6 F 97.6 F Pulse Rate 70 Respiratory Rate 10 L 15 16 Blood Pressure 131/60 Pulse Oximetry 98 99 99 11/16/17 13:30 11/16/17 13:55 11/16/17 14:00 Temperature 97.6 F Pulse Rate Respiratory Rate Blood Pressure Pulse Oximetry 97 98 11/16/17 15:00 11/16/17 17:15 11/16/17 19:00 Temperature 98.6 F 97.6 F Pulse Rate 60 65 63 Respiratory Rate 16 20 16 Blood Pressure 124/53 L 113/97 H Pulse Oximetry 98 99 11/16/17 20:30 11/16/17 21:24 11/16/17 22:05 Temperature Pulse Rate 62 Respiratory Rate 20 16 Blood Pressure Pulse Oximetry 99 11/16/17 23:00 11/16/17 23:09 11/17/17 03:00 Temperature 98.2 F 98.7 F Pulse Rate 64 64 Respiratory Rate 16 16 Blood Pressure 135/81 131/83 Pulse Oximetry 98 98 98 11/17/17 04:22 11/17/17 07:00 11/17/17 08:32 Temperature 98.5 F Pulse Rate 72 72 84 Respiratory Rate 22 18 18 Blood Pressure 133/78 Pulse Oximetry 98 99 Intake & Output 11/16/17 11/17/17 11/17/17 18:59 06:59 18:59 Intake Total 2497 / 2497 1502 / 1502 Output Total 1705 / 1705 765 / 765 Balance 792 / 792 737 / 737 Weight 76 kg Intake: IV 1047 / 1047 542 / 542 Cleviprex Inj 25 mg In 50 ml @ 4 / 4 1 MG/HR 2 mls/hr IV.CONT TITRATE PRN Rx#:[id number] NovoLIN R (IV Infusion) 100 23 / 23 42 / 42 UNIT In NS Inj 99 ML @ 3 UNITS/ HR 3 mls/hr IV.CONT TITRATE PRN Rx#:[id number] Nitroglycerin Drip Premix 50 mg 0 / 0 In 250 ml @ 20 MCG/MIN 6 mls/ hr IV.CONT TITRATE PRN Rx#: [id number] Ofirmev Inj 1,000 mg In 100 ml 100 / 100 200 / 200 @ 400 mls/hr IV.SIG Q6H BLAYNE Rx# :[id number] Calcium Chloride Inj 1 GM In NS 220 / 220 Inj 100 ML @ 100 mls/hr IV.SIG PRN PRN Rx#:[id number] LR 1000 mL Inj 500 ML @ 500 mls 500 / 500 /hr IV.SIG .Q1H PRN Rx#: [id number] KCl 20 mEq Premix Inj 20 meq In 100 / 100 200 / 200 100 ml @ 50 mls/hr IV.SIG PRN PRN Rx#:[id number] Ancef 2 GM Premix Inj 2 gm In 100 / 100 100 / 100 100 ml @ 200 mls/hr IV.SIG Q8H BLAYNE Rx#:[id number] Oral 50 / 50 960 / 960 Anesthesia Amount 1400 / 1400 Output: Estimated Blood Loss 200 / 200 Urine Amount (Catheter) 1275 / 1275 645 / 645 Indwelling Temp Sensing 1275 / 1275 645 / 645 Catheter Chest Tube Drainage 230 / 230 120 / 120 Pleural/Mediastinal 230 / 230 120 / 120 Other: # Bowel Movements 0 Narrative: GENERAL: NAD SKIN: Warm and dry. HEAD: Normocephalic. EYES: No scleral icterus. No injection or drainage. NECK: Supple, trachea midline. No JVD or lymphadenopathy. CARDIOVASCULAR: Regular rate and rhythm without murmurs, gallops, or rubs. dressing over ant chest; chest tube in place RESPIRATORY: Breath sounds equal bilaterally. No accessory muscle use. GASTROINTESTINAL: Abdomen soft, non-tender, nondistended. MUSCULOSKELETAL: No cyanosis, or edema. BACK: Nontender without obvious deformity. No CVA tenderness. - Urinary Catheter Management Indwelling Urethral Catheter Cath placed during this visit: no Reason for continuing: Not indwelling catheter Indwelling Temp Sensing Catheter Cath placed during this visit: yes, but has since been removed by the nurse Reason for continuing: Hourly intake/output Insertion date: 11/16/17 Insertion time: 07:30 Removal date: 11/17/17 Removal time: 05:30 Results - Labs CBC & Chem 7: 11/17/17 05:40 11/17/17 05:40 Laboratory Results - last 24 hr 11/15/17 11/16/17 11/16/17 05:35 12:27 13:10 WBC RBC Hgb Hct MCV MCH MCHC RDW Plt Count MPV Sodium Potassium Chloride Carbon Dioxide Anion Gap BUN Creatinine Estimated GFR POC Glucose 137 H 147 H Random Glucose Calcium Magnesium Blood Type O Positive Blood Type Recheck Required Antibody Screen Negative MTS Gel Crossmatch See Detail 11/16/17 11/16/17 11/16/17 14:12 15:38 17:11 WBC RBC Hgb Hct MCV MCH MCHC RDW Plt Count MPV Sodium Potassium Chloride Carbon Dioxide Anion Gap BUN Creatinine Estimated GFR POC Glucose 111 H 138 H 165 H Random Glucose Calcium Magnesium Blood Type Blood Type Recheck Antibody Screen MTS Gel Crossmatch 11/16/17 11/16/17 11/16/17 18:30 20:14 22:08 WBC RBC Hgb Hct MCV MCH MCHC RDW Plt Count MPV Sodium Potassium Chloride Carbon Dioxide Anion Gap BUN Creatinine Estimated GFR POC Glucose 118 H 104 132 H Random Glucose Calcium Magnesium Blood Type Blood Type Recheck Antibody Screen MTS Gel Crossmatch 11/16/17 11/17/17 11/17/17 23:50 03:07 04:59 WBC RBC Hgb Hct MCV MCH MCHC RDW Plt Count MPV Sodium Potassium Chloride Carbon Dioxide Anion Gap BUN Creatinine Estimated GFR POC Glucose 136 H 88 159 H Random Glucose Calcium Magnesium Blood Type Blood Type Recheck Antibody Screen MTS Gel Crossmatch 11/17/17 11/17/17 11/17/17 05:40 05:40 05:47 WBC 13.9 H RBC 3.80 L Hgb 11.9 L Hct 33.7 L MCV 88.8 MCH 31.4 MCHC 35.4 RDW 12.9 Plt Count 189 MPV 8.1 Sodium 139 Potassium 3.9 Chloride 107 Carbon Dioxide 23.6 Anion Gap 8 BUN 10 Creatinine 1.29 Estimated GFR 59 L POC Glucose 152 H Random Glucose 136 H Calcium 8.5 Magnesium 2.0 Blood Type Blood Type Recheck Antibody Screen MTS Gel Crossmatch 11/17/17 11/17/17 07:38 09:31 WBC RBC Hgb Hct MCV MCH MCHC RDW Plt Count MPV Sodium Potassium Chloride Carbon Dioxide Anion Gap BUN Creatinine Estimated GFR POC Glucose 89 104 Random Glucose Calcium Magnesium Blood Type Blood Type Recheck Antibody Screen MTS Gel Crossmatch - Imaging Impressions Chest X-Ray 11/16/17 11:06 CONCLUSION: Postoperative changes are seen. Left midlung parenchymal opacity felt to represent an area of atelectasis Chest X-Ray 11/17/17 05:00 CONCLUSION: 1. Left greater than right basilar consolidation, worse/new. 2. Endotracheal tube and nasogastric tube out. Other lines and tubes unchanged , including a left chest tube. No pneumothorax seen. - Procedures s/p CABG x 3 Assessment and Plan - Assessment (1) Chest pain Code(s): R07.9 - Chest pain, unspecified Status: Acute (2) NSTEMI (non-ST elevated myocardial infarction) Code(s): I21.4 - Non-ST elevation (NSTEMI) myocardial infarction Status: Acute (3) Elevated troponin I level Code(s): R74.8 - Abnormal levels of other serum enzymes Status: Acute (4) GERD (gastroesophageal reflux disease) Code(s): K21.9 - Gastro-esophageal reflux disease without esophagitis Status: Acute (5) Nicotine dependence Code(s): F17.200 - Nicotine dependence, unspecified, uncomplicated Status: Acute (6) Multi-vessel coronary artery stenosis Code(s): I25.10 - Atherosclerotic heart disease of [place] coronary artery without angina pectoris Status: Acute - Plan 52-year-old man with Non-ST elevation ND s/p left heart catheterization Tuesday, November 14, 2017 with finding of severe three-vessel disease Appreciate input from cardiology Continue with BB, Norvasc Continue with aspirin, statin, Plavix Severe three-vessel disease s/p CABG x 3 Management per CTS Chest tube management per CTS Continue with BB, Norvasc Continue with aspirin, statin, Plavix Syncope Echocardiogram pending Bilateral carotid ultrasound without any evidence of stenosis Follow on telemetry Gastroesophageal reflux disease Continue Protonix 40 mg daily DVT prophylaxis B-SCDs
[2017-11-17] MEDS: Metoprolol Tartrate 25 MG Tablet PO SCH ×2 (10:27→21:49)
[2017-11-17] MEDS: Amiodarone 200 MG Tablet PO SCH ×2 (10:27→21:49)
[2017-11-17] MEDS: amLODIPine 5 MG Tablet PO SCH (10:27)
[2017-11-17] MEDS: ceFAZolin 2 GM Premix Inj 2 GM/100 ML BAG IV.SIG SCH ×2 (10:28→16:48)
[2017-11-17] MEDS: Multivitamin/Minerals Therapeutic Tablet PO SCH (10:31)
--- NOTE | 2017-11-17 10:58 | P.DIET ---
Nutritional Evaluation Screening comments: MDC for diet education s/p CABG x 2 received. Patient Navigator to provide education. Consult RD if complexities with diet education arise.
--- NOTE | 2017-11-17 11:39 | ECG ---
Date Performed: 11/16/2017 Time Performed: 18:54:14 PTAGE: 52 years EKG: Sinus bradycardia marked ST segment elevation laterally and anteroseptal This appears to be very exaggerated or early replorization Cannot excluide acute injury or pericarditis or possible isc hemia Abnormal ECG PREVIOUS TRACING :11/11/2017 @20.08 Compared to previous tracing, ST-T waves are more prominent DOCTOR: Valdez Archibald Interpretating Date/Time 11/17/2017 11:37:39
--- NOTE | 2017-11-17 11:41 | ECG ---
Date Performed: 11/17/2017 Time Performed: 03:41:14 PTAGE: 52 years EKG: CONSIDER ACUTE ST ELEVATION TX Sinus rhythm Lateral elevation Possible early replorization for acute injury pattern Possible inferior infarct - age undetermined Clinical correlation is recommended for possible ischemia or infarction changes CON TICKET SORTER ACUTE INFARCT Abnormal ECG PREVIOUS TRACING : 11/16/2017 18.54 possible ischemia or infarct changes similar to prior ekg. Clinical correlation is recommended DOCTOR: Valdez Archibald Interpretating Date/Time 11/17/2017 11:40:49
[2017-11-17] MEDS: Insulin NovoLOG Aspart Correctional Sugar Inj SQ SCH ×3 (12:33→18:07)
[2017-11-17] MEDS: ALPRAZolam 0.25 MG Tablet PO PRN ×2 (13:11→21:49)
[2017-11-17] MEDS ORDERED: Iohexol 350 MG/ML 100 ML Vial (for Cath Lab) IVCONTRAST ONE (14:03)
--- NOTE | 2017-11-17 14:16 | P.DCO ---
- Home Health Aide Instructions: Heart and Vascular Surgery patients *Special attention to sternal dressing Mandatory frequency Assess and evaluation, 4 days in a row The next week 3X week 2 times a week for 4 weeks 1 time a week for 5 weeks Schedule Heart and Vascular patients for full 60 day certification period Initial visit Review Open Heart Surgery Discharge Instructions (Sternal precautions, Activity, Elastic hose, Incision care, Driving, Incentive spirometry, Smoking, [place], Work and other) Need Betadine to paint incision Medication reconciliation Importance of follow up care/ check on appointments Make calendar record temperature daily When to call [facility] nurse, review instructions, phone list Incentive Spirometry, demonstration Visit 1- Begin discharge instruction for patient family and/ or caregiver using teach back method- Signs and symptoms of infection Disease characteristics Medicines and side effects Foods and nutrition/ appetite Infection control/ hand washing/ hygiene Visit 2- Continue teaching Discharge instructions- include additional information on smoking cessation , sternal dressing (sternal vac) Visit 3- Continue teaching- Cough and deep breathing, incision monitoring. Choose my plate Visit 4- Continue teaching- Discuss limitations Discuss how they are feeling Discuss progress toward goals Remaining visits- continue teaching and monitoring For any questions please call : Tuesday 8am-5pm Heart & Vascular Surgery Office ( Dr. Corona & Dr. Apodaca), After Hours / Nights (5pm -8am) Weekends and Holidays Please call [facility] Cardiac [facility] Unit ([facility]IC) Charge Nurse PREVENA Single Use Negative Wound Therapy System Caregiver Instruction Sheet 1. A Prevena dressing system was applied to the chest incision during surgery , to promote wound healing. It works via a suction device (negative pressure wound therapy) to remove low to moderate levels of exudate (drainage) and infectious materials. We recommend that the device stay in place for up to seven days, from day of surgery. 2. Day of Surgery__11/16/17 Day of Removal ____11/23/17 3. The dressing should only be removed by a health children's zoo caretaker. Please arrange removal of device to coincide with Home Health visit and or with Nursing staff at Rehab 4. If skin reddening or irritation of skin occurs, or excessive drainage, please notify the Cardiovascular Surgeons office at [phone]. 5. Light showering is permissible; however the pump should be disconnected and placed in safe location, where it will not get wet. The dressing should not be exposed to direct spray or submerged in water. No bath tub / shower only. Ensure the end of the tubing attached to the dressing is facing down so that water does not enter the top of the tube. 6. To remove Prevena dressing: press purple button to turn off device / remove the suction. Then disconnect the tubing from the pump. The fixation strips should be stretched away from the skin and the dressing lifted at one corner and peeled back until it has been fully removed. 7. After removal, it is ok to shower daily using liquid dial soap and clean wash cloth, rinse and pat dry, and leave incision open to air dry. For any concerns regarding Prevena dressing, and or wounds, please contact Crista Contreras, patient navigator at [phone] or notify the Cardiovascular Surgeons office at [phone]. Incentive spirometry Q1 hr x 10, while awake, also use acapella device hourly whole awake Sternal Breast Bone Precautions: NO pushing or pulling, ( pt must use sternal pillow to support chest with all activities and with coughing ( takes up to 3 months breast bone to heal ) Daily incision care: ok to shower daily, no tub bath. Wash all incisions with liquid dial soap, clean wash cloth to each site, rinse and pat dry. Observe for any signs of infection, such as drainage which is dark yellow, wall, green or foul smelling. Immediately report to the surgeon any drainage from the chest incision, or legs, and for any abnormal drainage from the chest tube sites. Notify surgeon if any temp >101.5 degrees F. When specialty dressing removed/ or if you do not have one, continue to shower daily as above, then rinse and pat incision dry and paint with betadine daily x 5 days. Allow steri strips to fall off if you have any. Avoid lotions, creams, salves, oils, etc. for the first month Please see attached forms for additional instructions regarding post Open Heart specialty wound vacuum dressings. JOSE or Prevena , Dressing to be removed by Nursing staff on __11/23/17 F/U appointment: as per DC instructions: PCP in 2 weeks, CV surgeon 2 weeks, Photographs Curator 3-4 weeks For any questions regarding incisions/ dressing / meds / post op care or above Symptoms, Tuesday 8am-5pm Heart & Vascular Surgery Office ( Dr. Corona & Dr. Apodaca), After Hours / Nights (5pm -8am) Weekends and Holidays Please call [facility] Cardiac [facility] Unit (CIC) Charge Nurse - Certification I have seen patient Marco Antonio Butterfield on 11/17/17. My clinical findings support the need for the requested home health care services because: Deconditioned with increased weakness I certify that my clinical findings support that this patient is homebound because: Post-op weakness
[2017-11-17] MEDS: Docusate Sodium 100 MG Capsule PO SCH (21:48)
[2017-11-18] MEDS: Sod Chloride 0.9% Inj 1,000 ML IV.CONT SCH ×3 (00:04→17:17)
[2017-11-18] MEDS: Insulin NovoLOG Aspart Correctional Sugar Inj SQ SCH ×6 (00:05→23:02)
[2017-11-18] MEDS: ceFAZolin 2 GM Premix Inj 2 GM/100 ML BAG IV.SIG SCH (00:59)
[2017-11-18] MEDS: fentaNYL Citrate Inj 100 MCG/2 ML Ampul IV.PUSH PRN (05:42)
[2017-11-18 06:01] LABS: Baso # (Auto) 0.1 th/mm3 (0.0-0.2); Baso % (Auto) 0.5 % (0.0-2.0); Eos # (Auto) 0.1 th/mm3 (0.0-0.4); Eos % (Auto) 0.9 % (0.0-4.0); Hematocrit 32.9 % (39.0-51.0); Hemoglobin 11.4 gm/dL (13.0-17.0); Lymph # (Auto) 1.7 th/mm3 (1.0-4.8); Lymph % (Auto) 12.4 % (9.0-44.0); Mean Corpuscular HGB Conc 34.7 % (32.0-36.0); Mean Corpuscular Volume 89.5 fL (80.0-100.0); Mean Platelet Volume 8.2 fL (7.0-11.0); Mono # (Auto) 1.3 th/mm3 (0.0-0.9); Mono % (Auto) 9.2 % (0.0-8.0); Neut # (Auto) 10.7 th/mm3 (1.8-7.7); Platelet Count 188 th/mm3 (150-450); Red Blood Count 3.68 mil/mm3 (4.50-5.90); White Blood Count 13.9 th/mm3 (4.0-11.0)
[2017-11-18 06:21] LABS: Calcium 8.7 mg/dL (8.5-10.1); Carbon Dioxide 26.2 meq/L (21.0-32.0); Magnesium 2.2 mg/dL (1.5-2.5); Potassium 4.3 meq/L (3.5-5.1)
[2017-11-18] MEDS: Multivitamin/Minerals Therapeutic Tablet PO SCH (09:41)
[2017-11-18] MEDS: amLODIPine 5 MG Tablet PO SCH (09:41)
[2017-11-18] MEDS: Amiodarone 200 MG Tablet PO SCH ×2 (09:43→21:21)
[2017-11-18] MEDS: Docusate Sodium 100 MG Capsule PO SCH ×2 (09:43→20:51)
[2017-11-18] MEDS: Polyethylene Glycol 3350 17 GM Packet PO SCH (09:43)
[2017-11-18] MEDS: Metoprolol Tartrate 25 MG Tablet PO SCH ×2 (10:33→20:52)
--- NOTE | 2017-11-18 11:07 | P.PNCV ---
- Note Subjective/Hospital Course: 52-year-old male who presented to the emergency room on 11/11/2017 with chest pain. He is an avid biker, rides his bike approximately 15 miles at a time. He has been brought into the hospital for syncopal episodes. He exercises regularly. He just finished a bike ride during the heat, felt some general malaise, chest discomfort. That happened on and then on Tuesday he went on another bike ride and it happened again. He went into the 09-28 to try to get a drink and while leaning on a cooler he felt very lightheaded, attempted to sit down, but apparently lost consciousness causing him to fall to the floor. He tried to get up and felt dizzy again; however, it was extremely warm outside. He was sweating profusely. He was complaining of mid sternal chest discomfort. Says he has noticed this pain in the past when sometimes occurring into his bike ride, but is able to ride through the chest discomfort, eventually resolving. He has a history of exercise-induced asthma, has been using his albuterol more frequently. He is on no other medication. He underwent cardiac catheterization due to a non-STEMI, where he was found to have ejection fraction of 60%; the left main had a 50% distal stenosis, 65% proximal LAD. Conclusion: Severe left main, proximal left anterior descending ostial to proximal right coronary artery disease. Intravascular ultrasound was done showing a significant left main and proximal left anterior descending disease. We were consulted to evaluate for coronary artery bypass grafting. Patient's 2-D echo showed an ejection fraction of 60%-65%. The atrial septum was aneurysmal. There was mild mitral regurgitation, trace tricuspid regurgitation. PAST MEDICAL HISTORY: exercise-induced asthma, gastroesophageal reflux disease 11/15 pt had some mild pain last night relieved with morphine , on NTG gtt at 5 mcq carotid US oK no dvt lower legs vein mapping 4mm left proximal thigh only / will discuss with Dr Corona 11/16 surgery:1. Urgent Off-pump Coronary Artery Bypass Grafting x 3 with Left Internal Mammary Artery (PEDRAZA) to Left Anterior Descending (LAD), reverse saphenous vein graft to diagonal 1 branch of the LAD, reverse saphenous vein graft to the Right Coronary artery L EVH extubated after surgery crystalloid 2400cc , 200cc EBL 11/17 off all IV gtts start low dose BB , norvasc for BP very painful , pain meds adjusted leave chest tubes in , OOB ambulate aggressive pulm toileting transfer to stepdown 11/18 chest tube dc without difficulty on room air pain controlled / possible dc in am low grade temp last night / continue pulm toileting Objective: Vital Signs - 24 hr 11/17/17 12:00 11/17/17 12:34 11/17/17 14:42 Temperature 98.3 F Pulse Rate 70 66 Respiratory Rate 16 16 16 Blood Pressure 140/76 Pulse Oximetry 96 99 11/17/17 15:00 11/17/17 19:00 11/17/17 19:52 Temperature 98.3 F 99.2 F Pulse Rate 78 97 H Respiratory Rate 17 16 Blood Pressure 128/71 149/71 H Pulse Oximetry 95 93 L 97 11/17/17 20:00 11/17/17 23:00 11/17/17 23:14 Temperature 98.9 F Pulse Rate 83 76 Respiratory Rate 16 Blood Pressure 155/79 H Pulse Oximetry 93 L 95 11/18/17 03:00 11/18/17 04:34 11/18/17 07:00 Temperature 99.6 F 100.1 F H Pulse Rate 92 H 67 76 Respiratory Rate 16 16 Blood Pressure 141/84 H 142/73 H Pulse Oximetry 94 L 98 11/18/17 07:53 11/18/17 08:00 Temperature Pulse Rate 76 Respiratory Rate 14 Blood Pressure Pulse Oximetry 95 97 GENERAL: A&O x 3 SKIN: Warm and dry. prevena dressing to chest , incision intact to EVH site, right groin with ecchymosis HEAD: Normocephalic. EYES: No scleral icterus. No injection or drainage. NECK: Supple, trachea midline. No JVD or lymphadenopathy. CARDIOVASCULAR: Regular rate and rhythm without murmurs, gallops, or rubs. RESPIRATORY: Breath sounds equal bilaterally. No accessory muscle use. diminished in bases GASTROINTESTINAL: Abdomen soft, non-tender, nondistended. MUSCULOSKELETAL: No cyanosis, or edema. BACK: Nontender without obvious deformity. No CVA tenderness. Labs: Laboratory Results - last 12 hr 11/15/17 11/18/17 11/18/17 05:35 01:03 05:10 WBC 13.9 H RBC 3.68 L Hgb 11.4 L Hct 32.9 L MCV 89.5 MCH 31.0 MCHC 34.7 RDW 13.0 Plt Count 188 MPV 8.2 Neut % (Auto) 77.0 H Lymph % (Auto) 12.4 [place] % (Auto) 9.2 H Eos % (Auto) 0.9 Baso % (Auto) 0.5 Neut # (Auto) 10.7 H Lymph # (Auto) 1.7 [place] # (Auto) 1.3 H Eos # (Auto) 0.1 Baso # (Auto) 0.1 WBC Differential . Differential Comment Auto diff final Sodium Potassium Chloride Carbon Dioxide Anion Gap BUN Creatinine Estimated GFR POC Glucose 127 H Random Glucose Calcium Magnesium MTS Gel Crossmatch See Detail 11/18/17 11/18/17 05:10 07:39 WBC RBC Hgb Hct MCV MCH MCHC RDW Plt Count MPV Neut % (Auto) Lymph % (Auto) [place] % (Auto) Eos % (Auto) Baso % (Auto) Neut # (Auto) Lymph # (Auto) [place] # (Auto) Eos # (Auto) Baso # (Auto) WBC Differential Differential Comment Sodium 141 Potassium 4.3 Chloride 107 Carbon Dioxide 26.2 Anion Gap 8 BUN 13 Creatinine 1.24 Estimated GFR 61 L POC Glucose 120 H Random Glucose 112 H Calcium 8.7 Magnesium 2.2 MTS Gel Crossmatch Result Diagrams: 11/18/17 05:10 11/18/17 05:10 Telemetry: NSR - Plan (3) PVD (peripheral vascular disease) with claudication Plan: may need f/u with vascular surgery as outpt (4) S/P CABG x 3 Plan: ASA, statin , BB amiodarone and plavix chest tube dc without difficultly f/u CXR in am pain control . eval for dc in am (5) Chronic kidney disease (CKD) Plan: stable at 1.24 (7) NSTEMI (non-ST elevated myocardial infarction) Plan: on ASA, statin , No BB with bradycardia SEPIDEH held for surgery
--- NOTE | 2017-11-18 11:30 | P.PN ---
Subjective Interval history: Follow-up non-ST elevation MD/ MVD s/p CABGx3 November 17, 2017-patient seen and examined, still in pain, +SOB November 18, 2017-patient seen and examined; quite anxious. Complaint of anterior chest pain. Physical Exam Vital signs: Vital Signs 11/17/17 12:00 11/17/17 12:34 11/17/17 14:42 Temperature 98.3 F Pulse Rate 70 66 Respiratory Rate 16 16 16 Blood Pressure 140/76 Pulse Oximetry 96 99 11/17/17 15:00 11/17/17 19:00 11/17/17 19:52 Temperature 98.3 F 99.2 F Pulse Rate 78 97 H Respiratory Rate 17 16 Blood Pressure 128/71 149/71 H Pulse Oximetry 95 93 L 97 11/17/17 20:00 11/17/17 23:00 11/17/17 23:14 Temperature 98.9 F Pulse Rate 83 76 Respiratory Rate 16 Blood Pressure 155/79 H Pulse Oximetry 93 L 95 11/18/17 03:00 11/18/17 04:34 11/18/17 07:00 Temperature 99.6 F 100.1 F H Pulse Rate 92 H 67 76 Respiratory Rate 16 16 Blood Pressure 141/84 H 142/73 H Pulse Oximetry 94 L 98 11/18/17 07:53 11/18/17 08:00 Temperature Pulse Rate 76 Respiratory Rate 14 Blood Pressure Pulse Oximetry 95 97 Intake & Output 11/17/17 11/18/17 11/18/17 18:59 06:59 18:59 Intake Total 955 / 955 720 / 720 Output Total 250 / 250 1470 / 1470 Balance 705 / 705 -750 / -750 Weight 100.5 kg Intake: IV 595 / 595 Cleviprex Inj 25 mg In 50 ml @ 50 / 50 1 MG/HR 2 mls/hr IV.CONT TITRATE PRN Rx#:[id number] NovoLIN R (IV Infusion) 100 35 / 35 UNIT In NS Inj 99 ML @ 3 UNITS/ HR 3 mls/hr IV.CONT TITRATE PRN Rx#:[id number] Ofirmev Inj 1,000 mg In 100 ml 100 / 100 @ 400 mls/hr IV.SIG Q6H BLAYNE Rx# :[id number] Magnesium Sulfate Inj 2 GM In 110 / 110 NS Inj 96 ML @ 50 mls/hr IV.SIG PRN PRN Rx#:[id number] KCl 20 mEq Premix Inj 20 meq In 100 / 100 100 ml @ 50 mls/hr IV.SIG PRN PRN Rx#:[id number] Ancef 2 GM Premix Inj 2 gm In 200 / 200 100 ml @ 200 mls/hr IV.SIG Q8H BLAYNE Rx#:[id number] Oral 360 / 360 720 / 720 Output: Urine 250 / 250 1400 / 1400 Chest Tube Drainage 70 / 70 Pleural/Mediastinal 70 / 70 Other: # Voids 1 Date of Last Bowel Movement 11/16/17 Narrative: GENERAL: NAD SKIN: Warm and dry. HEAD: Normocephalic. EYES: No scleral icterus. No injection or drainage. NECK: Supple, trachea midline. No JVD or lymphadenopathy. CARDIOVASCULAR: Regular rate and rhythm without murmurs, gallops, or rubs. dressing over ant chest; chest tube in place RESPIRATORY: Breath sounds equal bilaterally. No accessory muscle use. GASTROINTESTINAL: Abdomen soft, non-tender, nondistended. MUSCULOSKELETAL: No cyanosis, or edema. BACK: Nontender without obvious deformity. No CVA tenderness. - Urinary Catheter Management Indwelling Urethral Catheter Cath placed during this visit: no Reason for continuing: Not indwelling catheter Indwelling Temp Sensing Catheter Cath placed during this visit: yes, but has since been removed by the nurse Reason for continuing: Not indwelling catheter Insertion date: 11/16/17 Insertion time: 07:30 Removal date: 11/17/17 Removal time: 05:30 Results - Labs CBC & Chem 7: 11/18/17 05:10 11/18/17 05:10 Laboratory Results - last 24 hr 11/15/17 11/17/17 11/17/17 05:35 13:15 16:42 WBC RBC Hgb Hct MCV MCH MCHC RDW Plt Count MPV Neut % (Auto) Lymph % (Auto) [place] % (Auto) Eos % (Auto) Baso % (Auto) Neut # (Auto) Lymph # (Auto) [place] # (Auto) Eos # (Auto) Baso # (Auto) WBC Differential Differential Comment Sodium Potassium Chloride Carbon Dioxide Anion Gap BUN Creatinine Estimated GFR POC Glucose 142 H 126 H Random Glucose Calcium Magnesium MTS Gel Crossmatch See Detail 11/17/17 11/17/17 11/18/17 20:22 22:08 01:03 WBC RBC Hgb Hct MCV MCH MCHC RDW Plt Count MPV Neut % (Auto) Lymph % (Auto) [place] % (Auto) Eos % (Auto) Baso % (Auto) Neut # (Auto) Lymph # (Auto) [place] # (Auto) Eos # (Auto) Baso # (Auto) WBC Differential Differential Comment Sodium Potassium Chloride Carbon Dioxide Anion Gap BUN Creatinine Estimated GFR POC Glucose 154 H 135 H 127 H Random Glucose Calcium Magnesium MTS Gel Crossmatch 11/18/17 11/18/17 11/18/17 05:10 05:10 07:39 WBC 13.9 H RBC 3.68 L Hgb 11.4 L Hct 32.9 L MCV 89.5 MCH 31.0 MCHC 34.7 RDW 13.0 Plt Count 188 MPV 8.2 Neut % (Auto) 77.0 H Lymph % (Auto) 12.4 [place] % (Auto) 9.2 H Eos % (Auto) 0.9 Baso % (Auto) 0.5 Neut # (Auto) 10.7 H Lymph # (Auto) 1.7 [place] # (Auto) 1.3 H Eos # (Auto) 0.1 Baso # (Auto) 0.1 WBC Differential . Differential Comment Auto diff final Sodium 141 Potassium 4.3 Chloride 107 Carbon Dioxide 26.2 Anion Gap 8 BUN 13 Creatinine 1.24 Estimated GFR 61 L POC Glucose 120 H Random Glucose 112 H Calcium 8.7 Magnesium 2.2 MTS Gel Crossmatch - Procedures s/p CABG x 3 Assessment and Plan - Assessment (1) Chest pain Code(s): R07.9 - Chest pain, unspecified Status: Acute (2) NSTEMI (non-ST elevated myocardial infarction) Code(s): I21.4 - Non-ST elevation (NSTEMI) myocardial infarction Status: Acute (3) Elevated troponin I level Code(s): R74.8 - Abnormal levels of other serum enzymes Status: Acute (4) GERD (gastroesophageal reflux disease) Code(s): K21.9 - Gastro-esophageal reflux disease without esophagitis Status: Acute (5) Nicotine dependence Code(s): F17.200 - Nicotine dependence, unspecified, uncomplicated Status: Acute (6) Multi-vessel coronary artery stenosis Code(s): I25.10 - Atherosclerotic heart disease of kaw coronary artery without angina pectoris Status: Acute - Plan 52-year-old man with Non-ST elevation MD s/p left heart catheterization Tuesday, November 14, 2017 with finding of severe three-vessel disease Appreciate input from cardiology Continue with BB, Norvasc Continue with aspirin, statin, Plavix Severe three-vessel disease s/p CABG x 3 Management per CTS Chest tube management per CTS; to be removed today November 18, 2017 Continue with BB, Norvasc, Amiodarone Continue with aspirin, statin, Plavix Syncope Echocardiogram pending Bilateral carotid ultrasound without any evidence of stenosis Follow on telemetry Gastroesophageal reflux disease Continue Protonix 40 mg daily DVT prophylaxis B-SCDs
[2017-11-18] MEDS ORDERED: amLODIPine 5 MG Tablet PO ONE (13:00)
[2017-11-18] MEDS ORDERED: Amiodarone Inj 150 MG in Dextrose 5% in Water Inj 97 ML IV.SIG ONE ×2 (18:06)
[2017-11-18] MEDS: ALPRAZolam 0.25 MG Tablet PO PRN (20:52)
[2017-11-19] MEDS: Sod Chloride 0.9% Inj 1,000 ML IV.CONT SCH ×2 (02:25→12:18)
[2017-11-19] MEDS ORDERED: Sod Phosphate/Sod Biphosphate (Adult) Enema 133 ML Bottle RECTAL PRN (06:00)
[2017-11-19] MEDS: Polyethylene Glycol 3350 17 GM Packet PO SCH (08:43)
[2017-11-19] MEDS: Docusate Sodium 100 MG Capsule PO SCH ×2 (08:44→20:29)
[2017-11-19] MEDS: Multivitamin/Minerals Therapeutic Tablet PO SCH (08:44)
[2017-11-19] MEDS: Amiodarone 200 MG Tablet PO SCH ×2 (08:44→20:29)
[2017-11-19] MEDS: Insulin NovoLOG Aspart Correctional Sugar Inj SQ SCH ×4 (08:45→20:58)
[2017-11-19] MEDS: amLODIPine 10 MG Tablet PO SCH (08:45)
[2017-11-19] MEDS: Metoprolol Tartrate 25 MG Tablet PO SCH ×2 (08:45→20:29)
--- NOTE | 2017-11-19 09:51 | P.PNCV ---
- Note Subjective/Hospital Course: 52-year-old male who presented to the emergency room on 11/11/2017 with chest pain. He is an avid biker, rides his bike approximately 15 miles at a time. He has been brought into the hospital for syncopal episodes. He exercises regularly. He just finished a bike ride during the heat, felt some general malaise, chest discomfort. That happened on and then on Tuesday he went on another bike ride and it happened again. He went into the 09-28 to try to get a drink and while leaning on a cooler he felt very lightheaded, attempted to sit down, but apparently lost consciousness causing him to fall to the floor. He tried to get up and felt dizzy again; however, it was extremely warm outside. He was sweating profusely. He was complaining of mid sternal chest discomfort. Says he has noticed this pain in the past when sometimes occurring into his bike ride, but is able to ride through the chest discomfort, eventually resolving. He has a history of exercise-induced asthma, has been using his albuterol more frequently. He is on no other medication. He underwent cardiac catheterization due to a non-STEMI, where he was found to have ejection fraction of 60%; the left main had a 50% distal stenosis, 65% proximal LAD. Conclusion: Severe left main, proximal left anterior descending ostial to proximal right coronary artery disease. Intravascular ultrasound was done showing a significant left main and proximal left anterior descending disease. We were consulted to evaluate for coronary artery bypass grafting. Patient's 2-D echo showed an ejection fraction of 60%-65%. The atrial septum was aneurysmal. There was mild mitral regurgitation, trace tricuspid regurgitation. PAST MEDICAL HISTORY: exercise-induced asthma, gastroesophageal reflux disease 11/15 pt had some mild pain last night relieved with morphine , on NTG gtt at 5 mcq carotid US oK no dvt lower legs vein mapping 4mm left proximal thigh only / will discuss with Dr Corona 11/16 surgery:1. Urgent Off-pump Coronary Artery Bypass Grafting x 3 with Left Internal Mammary Artery (PEDRAZA) to Left Anterior Descending (LAD), reverse saphenous vein graft to diagonal 1 branch of the LAD, reverse saphenous vein graft to the Right Coronary artery L EVH extubated after surgery crystalloid 2400cc , 200cc EBL 11/17 off all IV gtts start low dose BB , norvasc for BP very painful , pain meds adjusted leave chest tubes in , OOB ambulate aggressive pulm toileting transfer to stepdown 11/18 chest tube dc without difficulty on room air pain controlled / possible dc in am low grade temp last night / continue pulm toileting 11/19 Doing well. Episode of atrial fibrillation with rapid ventricular response yesterday. Converted to normal sinus rhythm with amiodarone bolus and drip We will convert to p.o. amiodarone later today Anticipate discharge with home health care tomorrow Objective: Vital Signs - 24 hr 11/18/17 10:00 11/18/17 11:00 11/18/17 12:00 Temperature 99.6 F Pulse Rate 76 78 75 Respiratory Rate 16 Blood Pressure 152/74 H Pulse Oximetry 98 11/18/17 13:00 11/18/17 13:34 11/18/17 15:00 Temperature 99.5 F Pulse Rate 77 76 75 Respiratory Rate 16 14 Blood Pressure 115/56 L Pulse Oximetry 96 93 L 11/18/17 16:00 11/18/17 17:00 11/18/17 17:16 Temperature Pulse Rate 74 74 Respiratory Rate 14 Blood Pressure Pulse Oximetry 11/18/17 19:00 11/18/17 20:00 11/18/17 23:00 Temperature 97.9 F 98.2 F Pulse Rate 139 H 93 H Respiratory Rate 18 20 Blood Pressure 112/74 117/72 Pulse Oximetry 92 L 92 L 96 11/18/17 23:47 11/19/17 03:00 11/19/17 07:00 Temperature 97.9 F Pulse Rate 95 H 62 71 Respiratory Rate 18 22 Blood Pressure 114/71 Pulse Oximetry 94 L 11/19/17 07:23 11/19/17 08:00 Temperature 99.3 F Pulse Rate 71 72 Respiratory Rate 16 17 Blood Pressure 123/72 Pulse Oximetry 95 97 Labs: Laboratory Results - last 12 hr 11/18/17 11/19/17 23:31 08:05 POC Glucose 136 H 121 H Result Diagrams: 11/18/17 05:10 11/18/17 05:10 - Plan (3) PVD (peripheral vascular disease) with claudication Plan: may need f/u with vascular surgery as outpt (4) S/P CABG x 3 Plan: ASA, statin , BB amiodarone and plavix chest tube dc without difficultly f/u CXR in am pain control . eval for dc in am (5) Chronic kidney disease (CKD) Plan: stable at 1.24
--- NOTE | 2017-11-19 13:07 | P.PN ---
Subjective Interval history: Follow-up non-ST elevation SD/ MVD s/p CABGx3 November 17, 2017-patient seen and examined, still in pain, +SOB November 18, 2017-patient seen and examined; quite anxious. Complaint of anterior chest pain. November 19, 2017-patient seen and examined, he went into A. fib with RVR last night for which he was started on amiodarone drip Physical Exam Vital signs: Vital Signs 11/18/17 13:00 11/18/17 13:34 11/18/17 15:00 Temperature 99.5 F Pulse Rate 77 76 75 Respiratory Rate 16 14 Blood Pressure 115/56 L Pulse Oximetry 96 93 L 11/18/17 16:00 11/18/17 17:00 11/18/17 17:16 Temperature Pulse Rate 74 74 Respiratory Rate 14 Blood Pressure Pulse Oximetry 11/18/17 19:00 11/18/17 20:00 11/18/17 23:00 Temperature 97.9 F 98.2 F Pulse Rate 139 H 93 H Respiratory Rate 18 20 Blood Pressure 112/74 117/72 Pulse Oximetry 92 L 92 L 96 11/18/17 23:47 11/19/17 03:00 11/19/17 07:00 Temperature 97.9 F Pulse Rate 95 H 62 71 Respiratory Rate 18 22 Blood Pressure 114/71 Pulse Oximetry 94 L 11/19/17 07:23 11/19/17 08:00 11/19/17 10:00 Temperature 99.3 F Pulse Rate 71 72 63 Respiratory Rate 16 17 Blood Pressure 123/72 Pulse Oximetry 95 97 11/19/17 11:00 11/19/17 12:00 Temperature 98.6 F Pulse Rate 67 61 Respiratory Rate 16 Blood Pressure 108/57 L Pulse Oximetry 97 Intake & Output 11/18/17 11/19/17 11/19/17 18:59 06:59 18:59 Intake Total 720 / 720 1150 / 1150 Output Total 2400 / 2400 3150 / 3150 Balance -1679 / -1679 -1999 / Weight 92.6 kg Intake: IV 350 / 350 Cordarone Inj 450 MG In D5W Inj 250 / 250 241 ML @ 1 MG/MIN 33.33 mls/hr IV.CONT TITRATE PRN Rx#: [id number] Oral 720 / 720 800 / 800 Output: Urine 2400 / 2400 3150 / 3150 Other: # Voids 7 Date of Last Bowel Movement 11/16/17 11/16/17 # Bowel Movements 0 0 Narrative: GENERAL: NAD SKIN: Warm and dry. HEAD: Normocephalic. EYES: No scleral icterus. No injection or drainage. NECK: Supple, trachea midline. No JVD or lymphadenopathy. CARDIOVASCULAR: Regular rate and rhythm without murmurs, gallops, or rubs. dressing over ant chest; chest tube in place RESPIRATORY: Breath sounds equal bilaterally. No accessory muscle use. GASTROINTESTINAL: Abdomen soft, non-tender, nondistended. MUSCULOSKELETAL: No cyanosis, or edema. BACK: Nontender without obvious deformity. No CVA tenderness. - Urinary Catheter Management Indwelling Urethral Catheter Cath placed during this visit: no Reason for continuing: Not indwelling catheter Indwelling Temp Sensing Catheter Cath placed during this visit: yes, but has since been removed by the nurse Reason for continuing: Not indwelling catheter Insertion date: 11/16/17 Insertion time: 07:30 Removal date: 11/17/17 Removal time: 05:30 Results - Labs CBC & Chem 7: 11/18/17 05:10 11/18/17 05:10 Laboratory Results - last 24 hr 11/18/17 11/18/17 11/19/17 16:10 23:31 08:05 POC Glucose 129 H 136 H 121 H 11/19/17 12:14 POC Glucose 111 H - Procedures s/p CABG x 3 Assessment and Plan - Assessment (1) Chest pain Code(s): R07.9 - Chest pain, unspecified Status: Acute (2) NSTEMI (non-ST elevated myocardial infarction) Code(s): I21.4 - Non-ST elevation (NSTEMI) myocardial infarction Status: Acute (3) Elevated troponin I level Code(s): R74.8 - Abnormal levels of other serum enzymes Status: Acute (4) GERD (gastroesophageal reflux disease) Code(s): K21.9 - Gastro-esophageal reflux disease without esophagitis Status: Acute (5) Nicotine dependence Code(s): F17.200 - Nicotine dependence, unspecified, uncomplicated Status: Acute (6) Multi-vessel coronary artery stenosis Code(s): I25.10 - Atherosclerotic heart disease of [place] coronary artery without angina pectoris Status: Acute - Plan 52-year-old man with Non-ST elevation SD s/p left heart catheterization Tuesday, November 14, 2017 with finding of severe three-vessel disease Appreciate input from cardiology Continue with BB, Norvasc Continue with aspirin, statin, Plavix Severe three-vessel disease s/p CABG x 3 Management per CTS Chest tube management per CTS; to be removed today November 18, 2017 Continue with BB Norvasc, Amiodarone was increased to 400 mg twice daily Continue with aspirin, statin, Plavix Atrial fibrillation with RVR Status post amiodarone drip, now on amiodarone 400 mg twice daily. Continue with aspirin Syncope Bilateral carotid ultrasound without any evidence of stenosis Follow on telemetry Gastroesophageal reflux disease Continue Protonix 40 mg daily DVT prophylaxis B-SCDs
[2017-11-20] MEDS: Sod Chloride 0.9% Inj 1,000 ML IV.CONT SCH ×2 (00:20→10:24)
[2017-11-20] MEDS: ALPRAZolam 0.25 MG Tablet PO PRN (02:30)
[2017-11-20] MEDS: Polyethylene Glycol 3350 17 GM Packet PO SCH (08:42)
[2017-11-20] MEDS: Multivitamin/Minerals Therapeutic Tablet PO SCH (08:42)
[2017-11-20] MEDS: Docusate Sodium 100 MG Capsule PO SCH (08:43)
[2017-11-20] MEDS: amLODIPine 10 MG Tablet PO SCH (08:43)
[2017-11-20] MEDS: Amiodarone 200 MG Tablet PO SCH (08:44)
[2017-11-20] MEDS: Metoprolol Tartrate 25 MG Tablet PO SCH (08:44)
--- NOTE | 2017-11-20 09:35 | P.DS ---
Date of admission: 11/11/17 16:33 Primary care physician: Sin Marie MD Anticipated date of discharge: 11/20/17 Brief History from admission: Mr. Butterfield is a 52-year-old male. His past medical history includes only gastroesophageal reflux disease. He smokes marijuana occasionally and does smoke nicotine daily. He drinks alcohol about 2-3 times per week. Family history is positive for coronary artery disease in both of his grandfathers. Today he came in after having 3 syncopal episodes and chest pain. He says chest tightness has been bothering him for about 1-2 weeks. At baseline he rides his bicycle 20-40 miles frequently. He says he rode his bicycle about 20 miles today at which time he became dizzy. He pulled into a 711. He passed out 3 times before entering a 7 on. He felt better after and had a drink. However, she was still having some chest pressure. EMS had been contacted and evaluated the patient. They reported T-wave changes. The patient declined to come into the emergency department via [facility]. However he came in with his by car. Findings in the ER are an elevated CK-MB and a troponin level of 1.25. T-wave inversions remain on EKG. Patient is chest pain-free when seen. No other complaints. No recreational drugs such as cocaine. DS: Diagnosis - Discharge Diagnosis (1) GERD (gastroesophageal reflux disease) Status: Acute (2) Nicotine dependence Status: Acute (3) PVD (peripheral vascular disease) with claudication Status: Acute (4) S/P CABG x 3 Status: Acute (5) Chronic kidney disease (CKD) Status: Acute DS: Medications - Discharge Medications Prescriptions: amiodarone 400 mg PO Q12HR 14 Days tab amlodipine [Norvasc] 10 mg PO DAILY #30 tab aspirin 81 mg PO DAILY 90 Days #90 tab atorvastatin 80 mg PO HS 90 Days #90 tab clopidogrel [Plavix] 75 mg PO DAILY 90 Days #90 tab docusate sodium [DOK] 100 mg PO BID 28 Days #56 cap hydrocodone-acetaminophen 1 tab PO Q3H PRN 7 Days #40 tab PRN Reason: Pain Scale 1 To 5 metoprolol tartrate 25 mg PO BID 90 Days #180 tab DS: Summary Hospital Course: 52-year-old male who presented to the emergency room on 11/11/2017 with chest pain. He is an avid biker, rides his bike approximately 15 miles at a time. He has been brought into the hospital for syncopal episodes. He exercises regularly. He just finished a bike ride during the heat, felt some general malaise, chest discomfort. That happened on and then on Tuesday he went on another bike ride and it happened again. He went into the 09-28 to try to get a drink and while leaning on a cooler he felt very lightheaded, attempted to sit down, but apparently lost consciousness causing him to fall to the floor. He tried to get up and felt dizzy again; however, it was extremely warm outside. He was sweating profusely. He was complaining of mid sternal chest discomfort. Says he has noticed this pain in the past when sometimes occurring into his bike ride, but is able to ride through the chest discomfort, eventually resolving. He has a history of exercise-induced asthma, has been using his albuterol more frequently. He is on no other medication. He underwent cardiac catheterization due to a non-STEMI, where he was found to have ejection fraction of 60%; the left main had a 50% distal stenosis, 65% proximal LAD. Conclusion: Severe left main, proximal left anterior descending ostial to proximal right coronary artery disease. Intravascular ultrasound was done showing a significant left main and proximal left anterior descending disease. We were consulted to evaluate for coronary artery bypass grafting. Patient's 2-D echo showed an ejection fraction of 60%-65%. The atrial septum was aneurysmal. There was mild mitral regurgitation, trace tricuspid regurgitation. PAST MEDICAL HISTORY: exercise-induced asthma, gastroesophageal reflux disease 11/15 pt had some mild pain last night relieved with morphine , on NTG gtt at 5 mcq carotid US oK no dvt lower legs vein mapping 4mm left proximal thigh only / will discuss with Dr Corona 11/16 surgery:1. Urgent Off-pump Coronary Artery Bypass Grafting x 3 with Left Internal Mammary Artery (PEDRAZA) to Left Anterior Descending (LAD), reverse saphenous vein graft to diagonal 1 branch of the LAD, reverse saphenous vein graft to the Right Coronary artery L EVH extubated after surgery crystalloid 2400cc , 200cc EBL 11/17 off all IV gtts start low dose BB , norvasc for BP very painful , pain meds adjusted leave chest tubes in , OOB ambulate aggressive pulm toileting transfer to stepdown 11/18 chest tube dc without difficulty on room air pain controlled / possible dc in am low grade temp last night / continue pulm toileting 11/19 Doing well. Episode of atrial fibrillation with rapid ventricular response yesterday. Converted to normal sinus rhythm with amiodarone bolus and drip We will convert to p.o. amiodarone later today Anticipate discharge with home health care tomorrow 11/20 D/C Home - Time Spent with Patient Total time spent providing and/or coordinating discharge services: Less than 30 minutes Exam Vital signs: Vital Signs 11/19/17 10:00 11/19/17 11:00 11/19/17 12:00 Temperature 98.6 F Pulse Rate 63 67 61 Respiratory Rate 16 Blood Pressure 108/57 L Pulse Oximetry 97 11/19/17 13:00 11/19/17 14:00 11/19/17 14:12 Temperature Pulse Rate 58 L 63 Respiratory Rate 16 Blood Pressure Pulse Oximetry 11/19/17 15:00 11/19/17 16:00 11/19/17 16:37 Temperature 99 F Pulse Rate 61 67 67 Respiratory Rate 17 18 Blood Pressure 110/55 L Pulse Oximetry 98 11/19/17 17:16 11/19/17 17:55 11/19/17 18:00 Temperature Pulse Rate 66 74 Respiratory Rate 16 Blood Pressure Pulse Oximetry 11/19/17 19:00 11/19/17 19:35 11/19/17 19:52 Temperature 98.2 F Pulse Rate 67 67 Respiratory Rate 20 Blood Pressure 121/67 Pulse Oximetry 97 95 11/19/17 20:00 11/19/17 21:00 11/19/17 22:00 Temperature Pulse Rate 62 62 56 L Respiratory Rate Blood Pressure Pulse Oximetry 11/19/17 23:30 11/20/17 03:00 11/20/17 07:00 Temperature 98.2 F 98.2 F 98.0 F Pulse Rate 60 58 L 60 Respiratory Rate 19 17 17 Blood Pressure 107/61 116/67 125/71 Pulse Oximetry 97 96 99 Intake & Output 11/19/17 11/20/17 11/20/17 18:59 06:59 18:59 Intake Total 960 / 960 990 / 990 Output Total 1050 / 1050 1400 / 1400 Balance -90 / -90 -410 / -410 Weight 92.5 kg Intake: IV 250 / 250 Oral 960 / 960 740 / 740 Output: Urine 1050 / 1050 1400 / 1400 Results Procedures completed during hospitalization: s/p CABG x 3 Labs on day of discharge: Labs from last 24 hours 11/20/17 11/19/17 11/19/17 07:46 20:42 15:43 POC Glucose 122 H 125 H 122 H 11/19/17 12:14 POC Glucose 111 H - Impressions ITS Impressions Head CT 11/11/17 13:26 CONCLUSION: Negative CT Head non contrast. . Carotid Doppler Study 11/12/17 00:00 CONCLUSION: No hemodynamically significant stenosis in either carotid artery. Lower Extremity Ultrasound 11/14/17 13:44 CONCLUSION: 1. The greater saphenous vein cannot be adequately visualized on either leg. Venous Doppler Study 11/14/17 13:44 CONCLUSION: 1. Negative for deep venous thrombosis Chest X-Ray 11/17/17 05:00 CONCLUSION: 1. Left greater than right basilar consolidation, worse/new. 2. Endotracheal tube and nasogastric tube out. Other lines and tubes unchanged , including a left chest tube. No pneumothorax seen. Discharge Plan - Discharge Disposition Patient Disposition: W/Home Health Service - Discharge Condition Condition: Good - Discharge Details Anticipated Discharge Date: 11/19/17 - Physicians Team Primary Care Provider: Sin Marie Attending Provider: Nixon Lee Other Providers: Danny Damon MD ; Miguel Corona MD
--- NOTE | 2017-11-20 09:38 | P.PNCV ---
- Note Subjective/Hospital Course: [facility] database queried Objective: Vital Signs - 24 hr 11/19/17 10:00 11/19/17 11:00 11/19/17 12:00 Temperature 98.6 F Pulse Rate 63 67 61 Respiratory Rate 16 Blood Pressure 108/57 L Pulse Oximetry 97 11/19/17 13:00 11/19/17 14:00 11/19/17 14:12 Temperature Pulse Rate 58 L 63 Respiratory Rate 16 Blood Pressure Pulse Oximetry 11/19/17 15:00 11/19/17 16:00 11/19/17 16:37 Temperature 99 F Pulse Rate 61 67 67 Respiratory Rate 17 18 Blood Pressure 110/55 L Pulse Oximetry 98 11/19/17 17:16 11/19/17 17:55 11/19/17 18:00 Temperature Pulse Rate 66 74 Respiratory Rate 16 Blood Pressure Pulse Oximetry 11/19/17 19:00 11/19/17 19:35 11/19/17 19:52 Temperature 98.2 F Pulse Rate 67 67 Respiratory Rate 20 Blood Pressure 121/67 Pulse Oximetry 97 95 11/19/17 20:00 11/19/17 21:00 11/19/17 22:00 Temperature Pulse Rate 62 62 56 L Respiratory Rate Blood Pressure Pulse Oximetry 11/19/17 23:30 11/20/17 03:00 11/20/17 07:00 Temperature 98.2 F 98.2 F 98.0 F Pulse Rate 60 58 L 60 Respiratory Rate 19 17 17 Blood Pressure 107/61 116/67 125/71 Pulse Oximetry 97 96 99 Labs: Laboratory Results - last 12 hr 11/20/17 07:46 POC Glucose 122 H Result Diagrams: 11/18/17 05:10 11/18/17 05:10 - Plan (3) PVD (peripheral vascular disease) with claudication Plan: may need f/u with vascular surgery as outpt (4) S/P CABG x 3 Plan: ASA, statin , BB amiodarone and plavix chest tube dc without difficultly f/u CXR in am pain control . eval for dc in am (5) Chronic kidney disease (CKD) Plan: stable at 1.24
--- NOTE | 2017-11-20 10:09 | P.PN ---
Subjective Interval history: Follow-up non-ST elevation CT/ MVD s/p CABGx3 November 17, 2017-patient seen and examined, still in pain, +SOB November 18, 2017-patient seen and examined; quite anxious. Complaint of anterior chest pain. November 19, 2017-patient seen and examined, he went into A. fib with RVR last night for which he was started on amiodarone drip November 20, 2017-patient seen and examined, patient was up and ambulated in the hallway. Denies any chest pain, currently rate controlled Physical Exam Vital signs: Vital Signs 11/19/17 11:00 11/19/17 12:00 11/19/17 13:00 Temperature 98.6 F Pulse Rate 67 61 58 L Respiratory Rate 16 Blood Pressure 108/57 L Pulse Oximetry 97 11/19/17 14:00 11/19/17 14:12 11/19/17 15:00 Temperature 99 F Pulse Rate 63 61 Respiratory Rate 16 17 Blood Pressure 110/55 L Pulse Oximetry 98 11/19/17 16:00 11/19/17 16:37 11/19/17 17:16 Temperature Pulse Rate 67 67 66 Respiratory Rate 18 Blood Pressure Pulse Oximetry 11/19/17 17:55 11/19/17 18:00 11/19/17 19:00 Temperature Pulse Rate 74 67 Respiratory Rate 16 Blood Pressure Pulse Oximetry 11/19/17 19:35 11/19/17 19:52 11/19/17 20:00 Temperature 98.2 F Pulse Rate 67 62 Respiratory Rate 20 Blood Pressure 121/67 Pulse Oximetry 97 95 11/19/17 21:00 11/19/17 22:00 11/19/17 23:30 Temperature 98.2 F Pulse Rate 62 56 L 60 Respiratory Rate 19 Blood Pressure 107/61 Pulse Oximetry 97 11/20/17 03:00 11/20/17 07:00 11/20/17 08:00 Temperature 98.2 F 98.0 F Pulse Rate 58 L 60 Respiratory Rate 17 17 Blood Pressure 116/67 125/71 Pulse Oximetry 96 99 99 Intake & Output 11/19/17 11/20/17 11/20/17 18:59 06:59 18:59 Intake Total 960 / 960 990 / 990 Output Total 1050 / 1050 1400 / 1400 Balance -90 / -90 -410 / -410 Weight 92.5 kg Intake: IV 250 / 250 Oral 960 / 960 740 / 740 Output: Urine 1050 / 1050 1400 / 1400 Narrative: GENERAL: NAD SKIN: Warm and dry. HEAD: Normocephalic. EYES: No scleral icterus. No injection or drainage. NECK: Supple, trachea midline. No JVD or lymphadenopathy. CARDIOVASCULAR: Regular rate and rhythm without murmurs, gallops, or rubs. dressing over ant chest RESPIRATORY: Breath sounds equal bilaterally. No accessory muscle use. GASTROINTESTINAL: Abdomen soft, non-tender, nondistended. MUSCULOSKELETAL: No cyanosis, or edema. BACK: Nontender without obvious deformity. No CVA tenderness. - Urinary Catheter Management Indwelling Urethral Catheter Cath placed during this visit: no Reason for continuing: Not indwelling catheter Indwelling Temp Sensing Catheter Cath placed during this visit: yes, but has since been removed by the nurse Reason for continuing: Not indwelling catheter Insertion date: 11/16/17 Insertion time: 07:30 Removal date: 11/17/17 Removal time: 05:30 Results - Labs CBC & Chem 7: 11/18/17 05:10 11/18/17 05:10 Laboratory Results - last 24 hr 11/19/17 11/19/17 11/19/17 12:14 15:43 20:42 POC Glucose 111 H 122 H 125 H 11/20/17 07:46 POC Glucose 122 H - Procedures s/p CABG x 3 Assessment and Plan - Assessment (1) Chest pain Code(s): R07.9 - Chest pain, unspecified Status: Acute (2) NSTEMI (non-ST elevated myocardial infarction) Code(s): I21.4 - Non-ST elevation (NSTEMI) myocardial infarction Status: Acute (3) Elevated troponin I level Code(s): R74.8 - Abnormal levels of other serum enzymes Status: Acute (4) GERD (gastroesophageal reflux disease) Code(s): K21.9 - Gastro-esophageal reflux disease without esophagitis Status: Acute (5) Nicotine dependence Code(s): F17.200 - Nicotine dependence, unspecified, uncomplicated Status: Acute (6) Multi-vessel coronary artery stenosis Code(s): I25.10 - Atherosclerotic heart disease of [place] coronary artery without angina pectoris Status: Acute - Plan 52-year-old man with Non-ST elevation CT s/p left heart catheterization Tuesday, November 14, 2017 with finding of severe three-vessel disease Appreciate input from cardiology Continue with BB, Norvasc Continue with aspirin, statin, Plavix Severe three-vessel disease s/p CABG x 3 Management per CTS Continue with BB, Norvasc, Amiodarone 400 mg twice daily Continue with aspirin, statin, Plavix Atrial fibrillation with RVR Status post amiodarone drip, now on amiodarone 400 mg twice daily. Continue with aspirin Syncope Bilateral carotid ultrasound without any evidence of stenosis Follow on telemetry Gastroesophageal reflux disease Continue Protonix 40 mg daily DVT prophylaxis B-SCDs
--- NOTE | 2017-11-20 10:12 | P.DS ---
Date of admission: 11/11/17 16:33 Primary care physician: Sin Marie MD Anticipated date of discharge: 11/20/17 Brief History from admission: Mr. Butterfield is a 52-year-old male. His past medical history includes only gastroesophageal reflux disease. He smokes marijuana occasionally and does smoke nicotine daily. He drinks alcohol about 2-3 times per week. Family history is positive for coronary artery disease in both of his grandfathers. Today he came in after having 3 syncopal episodes and chest pain. He says chest tightness has been bothering him for about 1-2 weeks. At baseline he rides his bicycle 20-40 miles frequently. He says he rode his bicycle about 20 miles today at which time he became dizzy. He pulled into a 711. He passed out 3 times before entering a 7 on. He felt better after and had a drink. However, she was still having some chest pressure. EMS had been contacted and evaluated the patient. They reported T-wave changes. The patient declined to come into the emergency department via [facility]. However he came in with his by car. Findings in the ER are an elevated CK-MB and a troponin level of 1.25. T-wave inversions remain on EKG. Patient is chest pain-free when seen. No other complaints. No recreational drugs such as cocaine. DS: Diagnosis - Discharge Diagnosis (1) Chest pain Status: Acute (2) NSTEMI (non-ST elevated myocardial infarction) Status: Acute (3) Elevated troponin I level Status: Acute (4) GERD (gastroesophageal reflux disease) Status: Acute (5) Nicotine dependence Status: Acute (6) Multi-vessel coronary artery stenosis Status: Acute DS: Medications - Discharge Medications Prescriptions: amiodarone 400 mg PO Q12HR 14 Days tab amlodipine [Norvasc] 10 mg PO DAILY #30 tab aspirin 81 mg PO DAILY 90 Days #90 tab atorvastatin 80 mg PO HS 90 Days #90 tab clopidogrel [Plavix] 75 mg PO DAILY 90 Days #90 tab docusate sodium [DOK] 100 mg PO BID 28 Days #56 cap hydrocodone-acetaminophen 1 tab PO Q3H PRN 7 Days #40 tab PRN Reason: Pain Scale 1 To 5 metoprolol tartrate 25 mg PO BID 90 Days #180 tab DS: Summary Hospital Course: While in hospital, patient was treated for: Non-ST elevation NE s/p left heart catheterization Tuesday, November 14, 2017 with finding of severe three-vessel disease Appreciate input from cardiology Treated with BB, Norvasc Treated with aspirin, statin, Plavix Severe three-vessel disease s/p CABG x 3 Management per CTS Treated with BB, Norvasc, Amiodarone 400 mg twice daily Treated with aspirin, statin, Plavix Atrial fibrillation with RVR Status post amiodarone drip, now on amiodarone 400 mg twice daily. Continue with aspirin Syncope Bilateral carotid ultrasound without any evidence of stenosis Follow on telemetry Gastroesophageal reflux disease Continue Protonix 40 mg daily DVT prophylaxis B-SCDs - Time Spent with Patient Total time spent providing and/or coordinating discharge services: Greater than 30 minutes Exam Vital signs: Vital Signs 11/19/17 11:00 11/19/17 12:00 11/19/17 13:00 Temperature 98.6 F Pulse Rate 67 61 58 L Respiratory Rate 16 Blood Pressure 108/57 L Pulse Oximetry 97 11/19/17 14:00 11/19/17 14:12 11/19/17 15:00 Temperature 99 F Pulse Rate 63 61 Respiratory Rate 16 17 Blood Pressure 110/55 L Pulse Oximetry 98 11/19/17 16:00 11/19/17 16:37 11/19/17 17:16 Temperature Pulse Rate 67 67 66 Respiratory Rate 18 Blood Pressure Pulse Oximetry 11/19/17 17:55 11/19/17 18:00 11/19/17 19:00 Temperature Pulse Rate 74 67 Respiratory Rate 16 Blood Pressure Pulse Oximetry 11/19/17 19:35 11/19/17 19:52 11/19/17 20:00 Temperature 98.2 F Pulse Rate 67 62 Respiratory Rate 20 Blood Pressure 121/67 Pulse Oximetry 97 95 11/19/17 21:00 11/19/17 22:00 11/19/17 23:30 Temperature 98.2 F Pulse Rate 62 56 L 60 Respiratory Rate 19 Blood Pressure 107/61 Pulse Oximetry 97 11/20/17 03:00 11/20/17 07:00 11/20/17 08:00 Temperature 98.2 F 98.0 F Pulse Rate 58 L 60 Respiratory Rate 17 17 Blood Pressure 116/67 125/71 Pulse Oximetry 96 99 99 Intake & Output 11/19/17 11/20/17 11/20/17 18:59 06:59 18:59 Intake Total 960 / 960 990 / 990 Output Total 1050 / 1050 1400 / 1400 Balance -90 / -90 -410 / -410 Weight 92.5 kg Intake: IV 250 / 250 Oral 960 / 960 740 / 740 Output: Urine 1050 / 1050 1400 / 1400 Narrative: GENERAL: NAD SKIN: Warm and dry. HEAD: Normocephalic. EYES: No scleral icterus. No injection or drainage. NECK: Supple, trachea midline. No JVD or lymphadenopathy. CARDIOVASCULAR: Regular rate and rhythm without murmurs, gallops, or rubs. RESPIRATORY: Breath sounds equal bilaterally. No accessory muscle use. GASTROINTESTINAL: Abdomen soft, non-tender, nondistended. MUSCULOSKELETAL: No cyanosis, or edema. BACK: Nontender without obvious deformity. No CVA tenderness. Results Procedures completed during hospitalization: s/p CABG x 3 Labs on day of discharge: Labs from last 24 hours 11/20/17 11/19/17 11/19/17 07:46 20:42 15:43 POC Glucose 122 H 125 H 122 H 11/19/17 12:14 POC Glucose 111 H - Impressions ITS Impressions Head CT 11/11/17 13:26 CONCLUSION: Negative CT Head non contrast. . Carotid Doppler Study 11/12/17 00:00 CONCLUSION: No hemodynamically significant stenosis in either carotid artery. Lower Extremity Ultrasound 11/14/17 13:44 CONCLUSION: 1. The greater saphenous vein cannot be adequately visualized on either leg. Venous Doppler Study 11/14/17 13:44 CONCLUSION: 1. Negative for deep venous thrombosis Chest X-Ray 11/17/17 05:00 CONCLUSION: 1. Left greater than right basilar consolidation, worse/new. 2. Endotracheal tube and nasogastric tube out. Other lines and tubes unchanged , including a left chest tube. No pneumothorax seen. Discharge Plan - Discharge Disposition Patient Disposition: W/Home Health Service - Discharge Condition Condition: Good - Discharge Order Discharge Orders: Discharge Order (Routine); Ordered 11/20/17 Ordered By: Miguel Corona - Discharge Details Anticipated Discharge Date: 11/20/17 - Physicians Team Primary Care Provider: Sin Marie Attending Provider: Nixon Lee Other Providers: Danny Damon MD ; Miguel Corona MD
[2017-11-20] MEDS: Insulin NovoLOG Aspart Correctional Sugar Inj SQ SCH ×2 (10:24→12:40)
[2017-11-20 15:26] VITALS: RESP 15
[2017-11-20 16:54] VITALS: BP 110/59; PULSE 62; TEMP 97.9; O2SAT 95
--- NOTE | 2017-11-22 10:30 | P.DCO ---
- Home Health Nursing Order: Medical education, Nursing assessment with vital signs - Certification I have seen patient Marco Antonio Butterfield on 11/22/17. My clinical findings support the need for the requested home health care services because: Deconditioned with increased weakness I certify that my clinical findings support that this patient is homebound because: Post-op weakness
== END 2017-11-20 16:30 | disposition home health service (06) ==
LOC: NEPE 13:00 → NEDA 16:33 → HCIS 18:09 → HCPC 11-16 07:01 → HCVI 11-16 11:31 → HCPC 11-17 11:00
PROVIDERS: ADMIT Hospitalist; ATTEND Hospitalist